=== PATIENT | female | born 1945 | race Caucasian/White ===

== ENCOUNTER 2017-05-14 06:25 | Inpatient (IN) ==
[2017-05-14 06:47] VITALS: BMI 21.6
[2017-05-14] MEDS: LR 1,000 ML IV SCH ×2 (07:30→11:00)
[2017-05-14] MEDS ORDERED: BUPIVACAINE 0.25%/EPI 1:200,000 30ml SDV ONE ×2 (08:05→08:51)
[2017-05-14] MEDS ORDERED: INDOCYANINE GREEN 25mg INJECTION ONE (08:05)
[2017-05-14] MEDS ORDERED: ACETAMINOPHEN IV 1,000 MG/100 ML VIAL IV ONE (08:17)
[2017-05-14] MEDS ORDERED: ONDANSETRON 4 MG/2 ML INJECTION IVP PRN (08:17)
[2017-05-14] MEDS ORDERED: HYDROMORPHONE 2 MG/ML INJECTION IVP PRN (08:17)
[2017-05-14] MEDS ORDERED: DiphenhydrAMINE 50 MG/ML INJECTION IVP PRN (08:17)
--- NOTE | 2017-05-14 08:20 | Anesthesia Preoperative Report ---
Anesthesia Preoperative Record - Date and Time Date: 05/14/17 Preoperative Diagnosis: Robot Assisted Laparoscopic right colectomy C18.0 Proposed Procedure: Robotic assisted lap right colectomy NPO Since Date: 05/14/17 NPO Since Time: 00:00 Allergies/Adverse Reactions: Allergies Allergy/AdvReac Type Severity Reaction Status Date / Time hydrocortisone Allergy Intermediate HIVES Verified 05/02/17 08:56 resorcinol Allergy Intermediate HIVES Verified 05/02/17 08:56 telithromycin Allergy Intermediate NAUSEA Verified 05/02/17 08:56 zinc oxide Allergy Intermediate HIVES Verified 05/02/17 08:56 Sulfa (Sulfonamide Allergy Unknown Verified 05/02/17 08:56 Antibiotics) bismuth subgallate Allergy Intermediate HIVES Uncoded 12/29/16 11:20 hydrocortisone acetate Allergy Intermediate HIVES Uncoded 12/29/16 11:20 - Vital Signs Vital Signs: Temperature 98.0 F 05/14/17 06:45 Pulse Rate 78 05/14/17 06:45 Respiratory Rate 16 05/14/17 06:45 Blood Pressure 102/62 05/14/17 06:45 Pulse Oximetry 99 05/14/17 06:45 Height and Weight: Height 5 ft 4 in Weight 57.2 kg Body Mass Index 21.6 - Medications Inpatient Medications: Current Medications Diphenhydramine HCl (Benadryl) 12.5 - 25 mg IVP O PRN PRN Reason: Nausea &/or vomiting Heparin Sodium (Porcine) (Heparin 5,000unit/Ml) 5,000 unit SUB-Q [employer]ATOR ONE Stop: 05/14/17 14:18 Hydromorphone HCl (Dilaudid) 0.5 - 1 mg IVP Q10M PRN PRN Reason: Pain Ertapenem 1 g/ Sodium Chloride 100 mls @ 200 mls/hr IV PREOP ONE Stop: 05/14/17 14:45 Lactated Ringer's (Lactated Ringers) 1,000 mls @ 30 mls/hr IV .Q24H SULEMAN Last Admin: 05/14/17 07:30 Dose: 30 mls/hr Acetaminophen (Ofirmev) 1,000 mg in 100 mls @ 400 mls/hr IV O ONE Stop: 05/14/17 08:31 Lidocaine HCl (Xylocaine-Mpf 1% Vial) 1 mg ID O ONE Stop: 05/14/17 14:11 Last Admin: 05/14/17 07:31 Dose: Not Given Ondansetron HCl (Zofran) 4 mg IVP O PRN PRN Reason: Nausea &/or vomiting Home Medications: Home Medications Medication Instructions Recorded Confirmed Type Estradiol Patch [Climara Patch] 1 patch TOP Q7D 05/01/17 05/14/17 History HydroCHLOROthiazide [Hydrodiuril] 1 tab PO WB 05/01/17 05/14/17 History LORazepam [Lorazepam] 0.5 tab PO HS PRN 05/01/17 05/14/17 History Pravastatin [Pravachol] 40 mg PO HS 05/01/17 05/14/17 History Atenolol [Tenormin] 1 tab PO PRN 05/02/17 05/14/17 History Cholecalciferol (Vitamin D3) 1 tab PO DAILY 05/10/17 05/14/17 History [Vitamin D3] Is Patient on Beta Vick?: No - Medical History Respiratory: DENIES: Asthma, Bronchitis, Chronic Obstructive Pulmonary Disease (COPD), Dyspnea, Orthopnea, Pulmonary Embolism, Pneumonia, Upper Respiratory Infection, Pulmonary Edema, Sleep Apnea, Tuberculosis, Other Cardiovascular: Reports: Hypertension, Other (mitral valve prolapse. seen by film tests checker. no intervention needed.) Gastrointestional: DENIES: Obstructive Bowel, Hepatitis, Cirrhosis, Nausea or Vomiting Present, Gastroesophageal Reflux Disease, Gastrointestinal Bleeding, Hiatal Hernia, Ulcer , Morbid Obesity, Other Neuro/Musculoskeletal: Denies: HX.MS.OSAR, Back Problems, Cerebrovascular Accident, Depression, Headaches, Loss of Consciousness, Muscle Weakness, Neuromuscular Disorder, Paralysis, Paresthesia, Syncope, Seizures, Other Renal/Endocrine: DENIES: Diabetes Mellitus Type 1, Diabetes Mellitus Type 2, Renal Failure, Dialysis, Thyroid Disease, Weight Loss, Weight Gain, Other Other History: DENIES: Anesthesia Reactions, Now, Blood Transfusions, Chemotherapy , Cancer, Hemophilia, Malignant Hyperthermia, Sickle Cell Disease, Other - Surgical History GI Surgery/Treatments: Reports: Appendectomy, Colonoscopy Surgery/Treatment: REPORT: Other (bladder lift) Musculoskeletal Surgery/Tx: Reports: Other (PLATES & SCREWS R. WRIST/FOREARM) Reproductive Surgery/Treatment: Reports: Hysterectomy, Oophorectomy, Salpingectomy Anesthesia Reactions: None Hx Family Anesthesia Reaction: No History of Motion Sickness: No - Social History Smoking Status: Never smoker Substance Use Type: does not use - Pertinent Findings Laboratory: CBC and BMP 05/14/17 06:40 05/14/17 06:40 BMP 05/14/17 06:40 Sodium 144 Potassium 3.2 L Chloride 103 Carbon Dioxide 28 BUN 14.0 Creatinine 1.0 Glucose 96 Calcium 9.8 Liver Function 05/14/17 Range/Units 06:40 Total Bilirubin 1.10 (0.20-1.30) MG/DL AST 27 (14-36) U/L ALT 29 (9-52) U/L Alkaline Phosphatase 115 (38-126) U/L Albumin 4.2 (3.5-5.0) G/DL EKG Rhythm: Normal Sinus Rhythm - Physical Exam Respiratory Exam: Present: lungs clear, bilateral breath sounds equal Cardiovascular Exam: Present: regular rate and rhythm, no murmur - Airway Assessment Mallampati Score: I TMD: 3 Fingerbreadths Neck Extension: fair Overall Assessment: no airway concerns - ASA ASA Score: 2 - Plan Anesthesia: General Inhalation Gases Peripheral Nerve Block: Other (TAP possible post op) - Discussion Discussion: Discussed risks/options/alternatives of anesthesia and questions answered. Patient consents. Nursing pain assessment noted. Present for Discussion: spouse, family member Attestation Statement: Prior to the delivery of any anesthetic medication, I examined the patient, developed the plan, obtained the patient's consent and discussed the risk and benefits of the procedure with the patient/guardian. - Additional Information Comments: TAP block discussed with pt. consent received. risks/benefits discussed. will discuss with Dr. Edwards Seen by Anesthesia: Yes
[2017-05-14] MEDS ORDERED: KETAMINE 500 MG/10 ML INJECTION ONE (08:35)
[2017-05-14] MEDS ORDERED: FentaNYL 100 MCG/2 ML INJECTION ONE (08:35)
[2017-05-14] MEDS ORDERED: DiphenhydrAMINE 50 MG/ML INJECTION ONE (08:41)
[2017-05-14] MEDS ORDERED: ONDANSETRON 4 MG/2 ML INJECTION ONE (08:41)
[2017-05-14] MEDS ORDERED: LIDOCAINE 2% (100mg/5mL) PF 5ml vl ONE (08:41)
[2017-05-14] MEDS ORDERED: DEXAMETHASONE 4 MG/ML INJECTION ONE (08:41)
[2017-05-14] MEDS ORDERED: NEOSTIGMINE 10 MG/10 ML INJECTION ONE (08:41)
[2017-05-14] MEDS ORDERED: PROPOFOL 20 ML ONE (08:41)
[2017-05-14] MEDS ORDERED: GLYCOPYRROLATE 0.4 MG/2 ML INJECTION ONE (08:41)
[2017-05-14] MEDS ORDERED: EPHEDRINE 50mg/ml INJECTION ONE (09:15)
[2017-05-14] MEDS ORDERED: BUPIVACAINE 0.25%/EPI 1:200,000 30ml SDV INFIL ONE (09:38)
[2017-05-14] MEDS ORDERED: INDOCYANINE GREEN 25mg INJECTION IVP ONE (11:34)
[2017-05-14] MEDS ORDERED: LIDOCAINE 1% (10mg/ml) 2mL INJ PF SDV ID ONE (14:10)
[2017-05-14] MEDS ORDERED: ERTAPENEM 1 G in NS 100 ML IV ONE (14:16)
[2017-05-14] MEDS ORDERED: HEPARIN SUB-Q 5,000 UNITS/0.5 ML INJECTION SQ ONE (14:17)
--- NOTE | 2017-05-14 14:43 | General Surgery Procedure Note ---
Date of Procedure: 05/14/17 Surgeon: [facility] Practitioner: Marty Cardona APRN Postoperative Diagnosis: adenocarcinoma of the cedum Procedure: Robotic assisted right hemicolectomy with primary anastomosis Estimated Blood Loss: See Anesthesia Record.
[2017-05-14] MEDS ORDERED: HYDROMORPHONE PCA 30mg/30ml VIAL IV PRN (14:53)
[2017-05-14] MEDS ORDERED: IBUPROFEN 600 MG TABLET PO PRN (14:53)
[2017-05-14] MEDS: MIDAZOLAM 2mg/2ml INJECTION IVP PRN ×3 (14:57→22:05)
[2017-05-14] MEDS: D5-1/2NS with KCL 20mEq 1,000 ML IV SCH (15:06)
--- NOTE | 2017-05-14 15:20 | XRay Report ---
Indication: tube placement PROCEDURE: XR chest 1V: Encounter: Initial Comparison: CT chest, abdomen and pelvis dated May 03, 2017 Findings: Endotracheal tube in place with the tip projecting 5 cm above the kendra at the level of the thoracic inlet. Extensive subcutaneous emphysema throughout the chest wall and neck bilaterally. No definite pneumothorax seen. Free intraperitoneal air, presumably postoperative. Mild left basilar atelectasis. Heart size and mediastinal contours are grossly normal. Pulmonary vascularity cannot be well evaluated due to the subcutaneous emphysema. Impression: 1. Endotracheal tube tip projects at the level of the thoracic inlet. Consider advancement by 1 to 1.5 cm. 2. Extensive subcutaneous emphysema. .
--- NOTE | 2017-05-14 16:50 | Operative Note ---
DATE OF SERVICE 05/14/2017 SURGEON Gurjit Edwards MD SHOEMAKING CUTTER Marty Cardona APRN PREOPERATIVE DIAGNOSIS Cecal carcinoma. POSTOPERATIVE DIAGNOSIS Cecal carcinoma. PROCEDURE Robotic-assisted laparoscopic right hemicolectomy. Anesthesia General endotracheal. EBL/FLUIDS Please see chart. BRIEF HISTORY/INDICATIONS Mrs. Otero is a 72-year-old female who recently had undergone a colonoscopy and was found to have a carcinoma involving her cecum. She did undergo preoperative imaging that fortunately did not reveal any evidence for metastatic disease. Patient presents today to undergo surgical resection of her newly diagnosed cecal carcinoma. For completeness please refer to notes included in the patient's chart. FINDINGS Upon laparoscopy one could see a small benign-appearing cyst within the midportion of the left lobe of the liver. Otherwise, Merrill's was capsule was smooth without nodularities. Omentum, small bowel, colon, peritoneal surfaces which were visualized were within normal limits. A standard robotic-assisted laparoscopic right hemicolectomy was completed without incident. NARRATIVE OF PROCEDURE After informed consent was obtained the patient was brought to the operative suite and placed on the table in supine fashion. The abdomen was prepped and draped in sterile fashion. Formal time-out was then completed. 0.25% Marcaine with epinephrine was injected just below the left subcostal margin. A 4-5 mm incision was made through the area of analgesia. Veress needle was then introduced through this small incision and into the peritoneal cavity. Pneumoperitoneum was established to a patient pressure of 15 mmHg of carbon dioxide. Next, a 12-mm camera port was then placed about 4 cm caudad and to the left of the umbilicus. Laparoscope was then inserted and one could see the Veress needle as it coursed through the anterior abdominal wall and left upper quadrant. The Veress needle was removed. Next, an additional 8-mm port was placed within the epigastric region, additional 8-mm port was placed in the suprapubic region, additional da Ascencion stapler port was then placed in the left upper quadrant, and an air assist port was placed within the left lower quadrant. Each port site was preinjected with 0.25% Marcaine with epinephrine and placed under direct visualization. Abdominal cavity was explored via the laparoscope. Findings were as noted above. The patient was then placed in Trendelenburg position and the bed was slightly flexed and rotated to the patient's left. Robot was then docked overlying the patient's right shoulder at a 45-degree angle. A Graptor retractor was placed in robotic arm #3 within the epigastric region. Hook cautery was placed within the stapler port within robotic arm #1. Fenestrated bipolar grasper was then placed in robotic arm #2 within the suprapubic port site. The Graptor was then placed on the right colon and retracted out laterally. Mesentery to the right mesocolon was then tented at this juncture in time. The mesentery was incised with the use of electrocautery. The right ileocolic vessels were dissected out. It was known that the patient's vasculature anatomy was somewhat different. Preoperatively the patient had undergone a CT scan and her vena cava was found to be on the left side of the aorta. Right ileocolic vessel appeared somewhat different in the fact that there was a large branch coming off of the right colic that coursed inferiorly and into the blood supply of the small bowel. The mesocolon was continued to be incised cephalad to the right colic vessels up towards the duodenum. Duodenum was identified and gently dissected posteriorly as the mesocolon was being divided and lifted anteriorly. Mesocolon was also divided caudal to the right colic vessels up to and adjacent to the terminal ileum. Retroperitoneal space was entered and the mesocolon was reflected anteriorly. A right ureteral stent had been placed preoperatively. One could see the ureteral stent lighting up the location of the right ureter. Right ureter was preserved in its entirety and kept under direct visualization as the terminal ileum and cecum was being dissected anteriorly away from the iliac vessels. Dissection was then continued up towards the transverse colon to the right of the middle colic vessels. Mesentery to the transverse colon was divided utilizing a vessel sealer. The avascular plane of the omentum was then entered and the omentum was dissected off of the hepatic flexure and proximal transverse colon. Gastrocolic lesion was also divided until the hepatic flexure was completely immobilized. At this time since the vasculature did appear slightly different than normal, I did have Dr. Wiley provide intraoperative "consult." Dr. Wiley agreed that the right colic vessel appeared slightly different in the fact that there was a larger vessel coming off of the right colic and entering into the small bowel. I elected, therefore , to divide the right colic vessel distal to this location. Right colic artery and vein were dissected out circumferentially. A hemoclip was then placed proximally and distally upon the right colic artery and vein. Right colic artery and vein were then divided between the two Hem-o-henry clips. The retroperitoneal space was then continued to be developed from a medial-to- lateral fashion. Retroperitoneal space was divided to just beneath the ascending colon and laterally to the white line of Toldt. The retroperitoneal space was then divided posterior to the hepatic flexure as the hepatic flexure was being dissected anteriorly. At this point in time the mesocolon to the terminal ileum, right colon and proximal transverse colon had been completely divided and the retroperitoneal space had been developed to the white line of Toldt out laterally. A stapler was then placed in robotic arm #1 and placed transversely across the terminal ileum and fired. Reload was then placed across the transverse colon just to the right of middle colic vessels and fired. Next, an intracorporal isoperistaltic anastomosis was performed. Antimesenteric portion of the terminal ileum was aligned along the antimesenteric taeniae coli of the transverse colon. Two 3-0 Vicryl sutures were then placed about 6-7cm apart between the antimesenteric portion of the terminal ileum and obtained a small purchase of the antimesenteric taeniae coli. These sutures were left long and were utilized as stay sutures and retracted anteriorly. Next, an enterotomy and colotomy was performed under direct visualization with scissors just proximal to the stay suture. A LATISHA vascular load was then placed in the stapler and placed into the enterotomy and colotomy aligned along the antimesenteric borders and fired. A small opening that was left from the stapler was then closed in two layers. First layer was closed in a running fashion utilizing a 2-0 V-Loc suture. Multiple 3-0 Vicryl Lembert sutures were then placed overlying the original closure. The anastomosis was complete at this time. Additionally, the patient was given intravenous ICG and the remaining transverse colon and terminal ileum fluoresced quite well to the staple line indicative of adequate blood supply. Next, attention was then directed towards removal of the specimen. Robot was undocked and the patient was "leveled out". A small Pfannenstiel incision was then made about two to three fingerbreadths above the pubic symphysis. A 4-5 cm transverse incision was then made at this location. Dissection was carried down to the anterior rectus sheath. Anterior rectus sheath was opened transversely. The peritoneum was then opened between the rectus muscles. An Juan Alberto wound retractor was then placed through this small Pfannenstiel incision. The transected end of the terminal ileum near the cecum was identified. A Gloria clamp was then placed upon the transected portion of the terminal ileum and the terminal ileum, right colon and hepatic flexure/specimen was easily removed through the wound retractor. Wound retractor was then removed. Peritoneum was closed in a running fashion with #1 PDS. Anterior rectus sheath was then closed in a running fashion with #1 PDS. Skin edges of the Pfannenstiel incision were then imbricated to one another with debbie. Pneumoperitoneum was reestablished. Prior areas of dissection were inspected and found be hemostatic in nature. No evidence for bleeding. Remaining ports were removed under direct visualization. Fascia at the camera port and the stapler port was then closed in a [id number] fashion with 0-Vicryl. All skin incisions were closed with debbie. The patient was somewhat slow to wake from her anesthetic as a result of the length of the procedure. The patient was therefore sent back to the ICU intubated but in stable condition. Additionally, it should be noted that Marty Cardona APRN, was present throughout the entire case and played a pivotal role in providing assistance and exposure during the course of the procedure. ASAD
[2017-05-14] MEDS: ONDANSETRON 4 MG/2 ML INJECTION IVP PRN (18:29)
--- NOTE | 2017-05-14 21:04 | Anesthesia Postoperative Note ---
- Date and Time Date: 05/14/17 Time: 21:03 - Status Patient Participated in Evaluation: Patient Intubated Vital Signs: Temperature 97.7 F 05/14/17 16:00 Pulse Rate 78 05/14/17 20:45 Respiratory Rate 11 05/14/17 20:45 Blood Pressure 153/78 H 05/14/17 17:40 Pulse Oximetry 100 05/14/17 20:45 Respiratory Function: Intubated Cardiovascular Function: Regular Pulse EKG Rhythm: Normal Sinus Rhythm Mental Status: Alert and Oriented Pain Intensity: 0 Hydration: IV Infusing Complications During Recover: None Apparent Post Anesthesia Care Notes: Pt to remain ventilated overnight. - Follow-Up Instructions Instructions: Per Surgeon
[2017-05-15] MEDS: SALINE FLUSH 10ml SYRINGE IV PRN ×2 (00:36→04:41)
[2017-05-15] MEDS: MIDAZOLAM 2mg/2ml INJECTION IVP PRN ×2 (00:36→04:40)
[2017-05-15] MEDS: D5-1/2NS with KCL 20mEq 1,000 ML IV SCH ×3 (00:37→17:10)
[2017-05-15] MEDS ORDERED: EPINEPHRINE AEROSOL PRN (07:19)
[2017-05-15] MEDS ORDERED: ALBUTEROL/IPRATROPIUM 2.5mg-0.5mg/3ml NEB AEROSOL PRN (07:20)
[2017-05-15] MEDS ORDERED: LORazepam 1 MG TABLET PO PRN (08:06)
--- NOTE | 2017-05-15 08:13 | General Surgery Progress Note ---
Subjective Patient reports: feels better (but still "puffy" face. She has been extubated within the last hour, able to now carry on normal conversation and ask questions. Ady flatus, nausea, chest pain. Throat is a little sore. She has been up to the side of the bed to stand this morning. Anticipate short distance of ambulation and chair later today.) - Vital Signs Last Vital Signs Temp 97.4 F 05/15/17 05:00 Pulse 68 05/15/17 05:20 Resp 16 05/15/17 07:28 BP 90/51 05/15/17 05:00 Pulse Ox 100 05/15/17 07:28 - Laboratory Result Diagrams: 05/15/17 06:13 05/15/17 06:13 - Abnormal Exam Eyes: other (post op edema has decreased from yesterday, she now can open her eyes with a little slit, but not wide open.) Respiratory: other (crackkles bilateral, more on right throughout.) Abdominal: hypoactive bowel sounds - Normal Exam General: no acute distress Cardiovascular: regular rhythm, regular rate Abdominal: appropriately tender, incision(s) (Pfannenstiel incision dressings have been changed due to bloody drainage yesterday. There is some dried blood on dressing now. Other bandaids dry and intact) Assessment and Plan (1) Adenocarcinoma of cecum Current Visit: Yes Status: Resolved (2) Mitral valvular prolapse Current Visit: Yes Status: Chronic (3) Anxiety Current Visit: Yes Status: Chronic Plan: POD #1 Post Robotic right hemicolectomy She remained intubated post op due to poor respiratory drive and high risk of tracheal edema, now extubated and breathing without difficulty , sat 97% on O2 at 2 Lt. Urine output is good. Using COAT CUTTER Dilaudid for pain. Continue sips and chips for now, anticipate advancing to clear liquids soon. Will keep in CCU through the day, may consider transfer to surgical later today or tomorrow. Hospital Course Summary Disclaimer: The visit summary below is not to be considered part of the above Progress Note. Hospital Course: 05/14/2017 Robotic assisted right hemicolectomy. Transferred to CCU intubated post op due to poor respiratory drive and high risk tracheal edema. SBP dropped to 70's and 80's after Versed while intubated, but improved with just repositioning to supine and letting the Versed wear off. 05/15/17 08:26 POD #1 Post Robotic right hemicolectomy She remained intubated post op due to poor respiratory drive and high risk of tracheal edema, now extubated and breathing without difficulty , sat 97% on O2 at 2 Lt. Urine output is good. Using COAT CUTTER Dilaudid for pain. Continue sips and chips for now, anticipate advancing to clear liquids soon. Will keep in CCU through the day, may consider transfer to surgical later today or tomorrow. Sepsis Assessment - Evaluation Sepsis screening result: No Definite Risk
[2017-05-15] MEDS ORDERED: LORazepam 0.5 MG TABLET PO PRN (08:15)
--- NOTE | 2017-05-15 08:23 | XRay Report ---
Indication: intubated PROCEDURE: XR chest 1V: Encounter: Initial Comparison: May 14, 2017 Findings: Endotracheal tube in place with the tip projecting 3.1 cm above the kendra. Extensive subcutaneous emphysema is again noted throughout the chest, abdominal wall and neck. No obvious pneumothorax or focal consolidative pneumonia. No significant pleural effusion. Heart size and mediastinal contours are stable. Pulmonary vascularity is obscured. Impression: Overall stable appearance of the chest. .
[2017-05-15] MEDS: PANTOPRAZOLE 40 MG INJECTION IVP SCH (09:46)
[2017-05-15] MEDS: ENOXAPARIN 40 MG/0.4 ML INJECTION SQ SCH (09:48)
--- NOTE | 2017-05-15 12:21 | Anesthesia Postoperative Note ---
- Date and Time Date: 05/15/17 Time: 12:21 - Status Patient Participated in Evaluation: Patient Participated in Person Vital Signs: Temperature 98.7 F 05/15/17 09:00 Pulse Rate 75 05/15/17 11:00 Respiratory Rate 21 05/15/17 11:00 Blood Pressure 93/52 05/15/17 11:00 Pulse Oximetry 100 05/15/17 11:00 Respiratory Function: Airway Patent Cardiovascular Function: Regular Pulse EKG Rhythm: Normal Sinus Rhythm Mental Status: Alert and Oriented Hydration: Taking PO Fluids Complications During Recover: None Apparent - Follow-Up Instructions Instructions: Per Surgeon
--- NOTE | 2017-05-15 15:38 | Progress Note ---
DATE OF SERVICE 05/15/2017 FINDINGS Dominga was seen earlier this morning on rounds. The patient was without complaints today. States she does not remember being on the ventilator last evening. The patient denied much in the way of abdominal discomfort. States that she was "hungry and wanted a pizza." EXAM VITAL SIGNS: Afebrile, normotensive/slightly hypotensive. CHEST: Auscultation of chest revealed clear breath sounds. The patient did have a considerable amount of subcutaneous air that is still present within the upper chest and neck that was noted upon palpation. CARDIOVASCULAR: Regular rate and rhythm. ABDOMEN: Soft, nontender. LABORATORY/RADIOGRAPHIC EVALUATION The patient had a CBC today and her white count was elevated at 14.4. This most likely is a result of stress from surgery and not infectious in nature. Hemoglobin is slightly down at 9.3. BMP obtained and found to be essentially within normal limits. Potassium slightly low at 3.4. Blood gas was obtained this morning and also reviewed as well as her chest x- ray. ASSESSMENT 72-year-old female status post robotic-assisted laparoscopic right hemicolectomy. Patient doing well this morning. PLAN Earlier this morning we did elect to extubate the patient. Will begin the patient on clear liquids today. Otherwise, will continue with current care. ASAD
[2017-05-15] MEDS: NS 500 ML IV SCH ×2 (18:26→21:24)
--- NOTE | 2017-05-15 18:39 | Consult Note ---
<Yanira Sharp V - Last Filed: 05/15/17 18:36> Consult Information - Data of Consult Patient: new to practice Consult date: 05/15/17 Requesting Physician: Gurjit Edwards MD Primary Care Provider: Adele Voss MD Family Provider: Adele Voss MD - Consult Narrative Reason for consult: Tachycardia, hypotension, History of present illness: Dominga is a pleasant 72-year-old female who has been under the primary care of Dr. Adele Voss. Patient was seen routinely and found to have anemia. Further workup including color guard. Stool sample was positive. Rising concern for adenocarcinoma. On , patient underwent a colonoscopy under the care of Dr. Xander Lorenzana. 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 Patient was admitted on 05/14/17 and the care of Dr. Gurjit Edwards for planned robotic upper scopic right hemicolectomy. Procedure was tolerated well. Today patient has had persistent mild tachycardia as well as ongoing hypotension. Her morning hemoglobin was 9.3, this was repeated at 1745 today, which is stable at 9.2. She has had significant subcutaneous emphysema generalized since surgery. Hospital services were consulted this evening for medical evaluation and recommendations giving postoperative findings, as well as existing comorbidities. Dominga is seen this evening for initial consultation. She is alert, oriented and pleasant. She does complain of having generalized swelling to the face and neck. She reports that overall she feels that that her postoperative abdominal pain is well-controlled on the SOFTWARE SUPPORT REPRESENTATIVE. She does verbalize feeling mildly anxious, however, does have underlying anxiety. She denies feeling short of breath or having chest pain, however, she does note feeling some mild palpitations with position changes. 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 Cochleovestibular and Mnire's- chronic Dyslipidemia Anxiety Chronic rhinitis Surgical History: Robotic laparoscopic right Hemicolectomy-05/14/17 (Dr. Edwards ). Right lumpectomy-1998. Total abdominal hysterectomy with BSO. Forearm/ wrist surgery-2002. Colonoscopy-2008, 04/2017. Cystocele and rectocele-2008 Family History: Father-congestive heart failure, dementia. Mother-dementia - Social History Smoking status: Never smoker Substance use type: does not use Alcohol intake frequency: does not drink Current occupational status: retired Current residence: Apartment/Private Home Social history: Primary care provider, Dr. Voss Review of Systems Comprehensive ROS: completed and no additional positive findings except those as stated - EENMT EENMT Comments: Generalized facial edema, swelling - Gastrointestinal Gastrointestinal: Present: as per HPI Medications Home Medications Medication Instructions Recorded Confirmed Type Estradiol Patch [Climara Patch] 1 patch TOP Q7D 05/01/17 05/14/17 History HydroCHLOROthiazide [Hydrodiuril] 1 tab PO WB 05/01/17 05/14/17 History LORazepam [Lorazepam] 0.5 tab PO HS PRN 05/01/17 05/14/17 History Pravastatin [Pravachol] 40 mg PO HS 05/01/17 05/14/17 History Atenolol [Tenormin] 1 tab PO PRN 05/02/17 05/14/17 History Cholecalciferol (Vitamin D3) 1 tab PO DAILY 05/10/17 05/14/17 History [Vitamin D3] Allergies Allergy/AdvReac Type Severity Reaction Status Date / Time hydrocortisone Allergy Intermediate HIVES Verified 05/02/17 08:56 resorcinol Allergy Intermediate HIVES Verified 05/02/17 08:56 telithromycin Allergy Intermediate NAUSEA Verified 05/02/17 08:56 zinc oxide Allergy Intermediate HIVES Verified 05/02/17 08:56 Sulfa (Sulfonamide Allergy Unknown Verified 05/02/17 08:56 Antibiotics) bismuth subgallate Allergy Intermediate HIVES Uncoded 12/29/16 11:20 hydrocortisone acetate Allergy Intermediate HIVES Uncoded 12/29/16 11:20 Exam Vital Signs: Temperature 97.7 F 05/15/17 16:00 Pulse Rate 98 05/15/17 16:00 Respiratory Rate 24 05/15/17 18:00 Blood Pressure 85/48 05/15/17 16:00 Pulse Oximetry 98 05/15/17 16:17 Telemetry Rhythm: Sinus Tachycardia Height/Weight/BMI: Height 1.63 m Weight 60.3 kg Body Mass Index 21.6 - Constitutional Present: no acute distress, well nourished, well developed - Routine HEENT Exam Eye: Present: EOMI, periorbital swelling ENT: Present: mucous membranes moist, dentition normal Comments: Subcutaneous emphysema is present to generalize faced and bilateral neck. - Routine Respiratory Exam Present: CTA bilaterally. Absent: wheezes Comments: crackles are present on auscultation, however, suspect this is secondary to the subcutaneous emphysema. Breath sounds are clear. - Routine Cardiovascular Exam Present: RRR. Absent: murmur - Routine Abdominal Exam Present: soft, non distended, surgical scars. Absent: normoactive bowel sounds (hypoactive), tenderness Comments: Abdominal incision is intact without evidence of acute bleeding or drainage. - Routine Extremities Exam Present: edema Comments: Subcutaneous emphysema to bilateral upper extremities - Routine Skin Exam Present: intact, dry, warm - Routine Neurological Exam Present: alert, oriented X3, CN II-XII intact - Routine Psychiatric Exam Present: normal affect, normal thought process Results - Labs CBC & Chem 7: 05/15/17 17:44 05/15/17 06:13 - ABG Interpretation ABG results: 05/14/17 05/15/17 15:05 06:00 ABG pH 7.480 H 7.540 H ABG pCO2 30 L 26 L ABG pO2 192 H 130 H ABG HCO3 22 22 ABG Total CO2 23.2 23.0 ABG O2 Saturation 100.0 H 99.0 H ABG Base Excess -0.4 0.8 Assessment and Plan (1) Adenocarcinoma of cecum Current visit: Yes Status: Resolved (2) Subcutaneous emphysema after procedure Current visit: Yes Status: Acute Resuscitation Status: Full Code Assessment and Plan: Impression Status post robotic laparoscopic right hemicolectomy Cecal carcinoma Postprocedure subcutaneous emphysema Tachycardia Hypotension with history of hypertension Dyslipidemia Mitral valve prolapse Anxiety Plan Appreciate medical consultation with Hospital services, Dr. Pham. Patient's primary care provider is Dr. Adele Voss with [facility]. Will give a 500 ML bolus of normal saline over 1 hour for gentle hydration. Will then continue on D5 1/2 NS with 20 of KCl at 125 ML per hour Continue to reevaluate tachycardia and hypotension. In reviewing old records, it does appear that patient has had intermittent tachycardia and has used atenolol 25 milligrams as needed in the past. Reviewed CBC at 1744 - Hgb was stable at 9.2. Will recheck again at 2200 and monitor for any evidence of bleeding. Continue to monitor subcutaneous emphysema as this will likely continue to improve over time. Continue to encourage patient to utilize SOFTWARE SUPPORT REPRESENTATIVE for pain control. She does appear to be somewhat nervous about overdoing pain medications. Ativan as needed for anxiety Lovenox subcutaneous daily for DVT prophylaxis All surgical and postoperative orders continue as per Dr. Edwards Will discuss further orders and plan of care with attending, Dr. Pham. The hospitalist services, appreciate medical consultation and will continue to follow patient during her stay at [facility]. At time of discharge her medical care will return to her primary care provider [facility], Dr. Adele Voss Hospital Course Summary Disclaimer: The visit summary below is not to be considered part of the above Progress Note. Hospital Course: 05/14/2017 Robotic assisted right hemicolectomy. Transferred to CCU intubated post op due to poor respiratory drive and high risk tracheal edema. SBP dropped to 70's and 80's after Versed while intubated, but improved with just repositioning to supine and letting the Versed wear off. 05/15/17 08:26 POD #1 Post Robotic right hemicolectomy She remained intubated post op due to poor respiratory drive and high risk of tracheal edema, now extubated and breathing without difficulty , sat 97% on O2 at 2 Lt. Urine output is good. Using SOFTWARE SUPPORT REPRESENTATIVE Dilaudid for pain. Continue sips and chips for now, anticipate advancing to clear liquids soon. Will keep in CCU through the day, may consider transfer to surgical later today or tomorrow. Plan- 05/15- hospitalist consultation Appreciate medical consultation with Hospital services, Dr. Pham. Patient's primary care provider is Dr. Adele Voss with [facility]. Will give a 500 ML bolus of normal saline over 1 hour for gentle hydration. Will then continue on D5 1/2 NS with 20 of KCl at 125 ML per hour Continue to reevaluate tachycardia and hypotension. In reviewing old records, it does appear that patient has had intermittent tachycardia and has used atenolol 25 milligrams as needed in the past. Reviewed CBC at 1744 - Hgb was stable at 9.2. Will recheck again at 2200 and monitor for any evidence of bleeding. Continue to monitor subcutaneous emphysema as this will likely continue to improve over time. Continue to encourage patient to utilize SOFTWARE SUPPORT REPRESENTATIVE for pain control. She does appear to be somewhat nervous about overdoing pain medications. Ativan as needed for anxiety Lovenox subcutaneous daily for DVT prophylaxis All surgical and postoperative orders continue as per Dr. Edwards Will discuss further orders and plan of care with attending, Dr. Pham. The hospitalist services, appreciate medical consultation and will continue to follow patient during her stay at [facility]. At time of discharge her medical care will return to her primary care provider [facility], Dr. Adele Voss Sepsis Assessment - Evaluation Sepsis screening result: No Definite Risk <Carley Pham - Last Filed: 05/15/17 19:09> Consult Information - Data of Consult Requesting Physician: Gurjit Edwards MD Primary Care Provider: Adele Voss MD Family Provider: Adele Voss MD [facility] Patient Stated Medical History Cerebrovascular Accident No Paralysis No Seizures No Syncope No Cataracts Yes Hearing Loss Yes: lt ear Cardiac Arrhythmia Yes: rapid at times Hypertension Yes Valvular Heart Disease Yes: MVP Other Cardiology Yes: mitral valve prolapse. seen by english division chair . no intervention needed. Asthma No Bronchitis No Chronic Obstructive Pulmonary No Disease (COPD) Pneumonia No Pulmonary Edema No Pulmonary Embolism No Sleep Apnea No Tuberculosis No Other Respiratory No Diabetes Mellitus Type 1 No Diabetes Mellitus Type 2 No Cirrhosis No Gastroesophageal Reflux No Disease Gastrointestinal Bleeding No Hepatitis No Hiatal Hernia No Obstructive Bowel No Ulcer No Other GI No Anemia Yes Osteoarthritis No Other Musculoskeletal No Anesthesia Reactions No Blood Transfusions No Chemotherapy No Malignant Hyperthermia No Other No Depression No Substance Use Disorder occasional Endometriosis Yes Now No Exam Vital Signs: Temperature 97.7 F 05/15/17 16:00 Pulse Rate 98 05/15/17 16:00 Respiratory Rate 24 05/15/17 18:00 Blood Pressure 85/48 05/15/17 16:00 Pulse Oximetry 98 05/15/17 16:17 Height/Weight/BMI: Height 5 ft 4 in Weight 132 lb 15.02 oz Body Mass Index 21.6 Results - Labs CBC & Chem 7: 05/15/17 17:44 05/15/17 06:13 - ABG Interpretation ABG results: 05/14/17 05/15/17 15:05 06:00 ABG pH 7.480 H 7.540 H ABG pCO2 30 L 26 L ABG pO2 192 H 130 H ABG HCO3 22 22 ABG Total CO2 23.2 23.0 ABG O2 Saturation 100.0 H 99.0 H ABG Base Excess -0.4 0.8 Assessment and Plan (1) Adenocarcinoma of cecum Current visit: Yes Status: Resolved (2) Subcutaneous emphysema after procedure Current visit: Yes Status: Acute Assessment and Plan: I have independently evaluated and examined this patient. I reviewed the chart, the patient's history, and the COOK APPRENTICE PASTRY/PA's documented findings as above. We discussed and formulated the assessment and plan as above with additions as below. In general, the patient is alert and oriented 3, cooperative with exam, and in no respiratory distress. HEENT: Head is atraumatic, normocephalic, no conjunctival petechiae, no oral thrush, mucous membranes are moist and pink. Lungs: Clear to auscultation without wheezes, crackles or rhonchi but difficult to assess with her subcutaneous emphysema CV: Regular rate and rhythm without murmur Abdomen: Soft, nontender, bowel sounds are rare, there is no guarding no rebound. Lower abdomen incision with debbie in place minimal bruising noted no drainage Extremities: No clubbing, no cyanosis, no edema. Skin: Warm and dry no sign of rash, obvious subcutaneous emphysema from her eyelids extending to her knees. Neuro: Patient is alert Agree with plans as outlined above. This was discussed with the patient, patient 's nurse and Dr. Edwards. Hospital Course Summary Disclaimer: The visit summary below is not to be considered part of the above Progress Note.
--- NOTE | 2017-05-15 20:56 | Progress Note ---
DATE OF SERVICE 05/15/2017 FINDINGS Mrs. Otero was seen on evening rounds. Nurse had contacted me stating the patient was experiencing some increasing abdominal pain, had noted a component of some tachycardia. Upon questioning the patient she states that she has been having some element of abdominal discomfort. This is mostly noted when she is being moved in the bed. She was lying in bed and did not appear to be in acute distress. EXAM VITAL SIGNS: Last recorded vitals include temperature 97.7, pulse 98, blood pressure 85/48. Upon entering the room I did see that she was slightly tachycardic with a pulse of around 105. CHEST: Clear to auscultation. Patient still has a fair amount of subcutaneous air present. ABDOMEN: Soft, only minimal incisional tenderness. No evidence for guarding or rebound. ASSESSMENT 72-year-old female status post robotic-assisted laparoscopic right hemicolectomy , overall patient doing fairly well although somewhat concerned about increasing tachycardia and slight hypotension. PLAN Will go ahead and check CBC to make sure that the patient's hemoglobin is not continuing to drift downward. The patient does not have a surgical abdomen at this time. Upon further examining the patient, she began to inform me that she has noted some discomfort within her chest that extends up into her neck. Given this report of some chest discomfort extending into her neck in conjunction with her tachycardia, will go ahead and have hospitalist system see the patient from a medical standpoint. Will await her CBC results and proceed accordingly. ASAD
[2017-05-16] MEDS: D5-1/2NS with KCL 20mEq 1,000 ML IV SCH ×3 (02:13→18:39)
--- NOTE | 2017-05-16 07:48 | General Surgery Progress Note ---
Subjective Patient reports: feels better (subQ air has decreased a lot since yesterday), pain is less (uses ADVANCE SCOUT rarely), tolerating liquids well (denies nausea today, states she had some nausea yesterday), no flatus, no bowel movement, other ( denies chest pain/palpiations upon my visit this morning.) - Vital Signs Last Vital Signs Temp 98.8 F 05/15/17 21:00 Pulse 101 H 05/16/17 06:00 Resp 23 05/16/17 06:00 BP 109/57 05/16/17 06:00 Pulse Ox 94 05/16/17 06:00 - Laboratory Result Diagrams: 05/16/17 05:56 05/16/17 05:56 Laboratory Tests 05/15/17 05/15/17 05/15/17 06:13 17:44 21:53 Hgb 9.3 L D 9.2 L 8.9 L 05/16/17 05:56 Hgb 8.3 L - Radiology 09/ CXR Findings: Endotracheal tube in place with the tip projecting 3.1 cm above the kendra. Extensive subcutaneous emphysema is again noted throughout the chest, abdominal wall and neck. No obvious pneumothorax or focal consolidative pneumonia. No significant pleural effusion. Heart size and mediastinal contours are stable. Pulmonary vascularity is obscured. Impression: Overall stable appearance of the chest. - Abnormal Exam General: other (subQ emphysema of face, neck and chest is much improved from yesterday. She is now able to open her eyes and is generally looking for like herself.) Respiratory: other (crackles bilateral base, worse on the right but both sides much improved from yesterday.) Abdominal: hypoactive bowel sounds - Normal Exam General: no acute distress Cardiovascular: regular rhythm, regular rate Abdominal: soft, appropriately tender (along incisions), no guarding, incision(s ) (dressings dry) Male: other (urine clear yellow, adequate output) Assessment and Plan (1) Adenocarcinoma of cecum Current Visit: Yes Status: Resolved (2) Mitral valvular prolapse Current Visit: Yes Status: Chronic (3) Anxiety Current Visit: Yes Status: Chronic (4) Tachycardia Current Visit: Yes Status: Acute (5) Oliguria Current Visit: Yes Status: Acute (6) Intermittent palpitations Current Visit: Yes Status: Acute Plan: POD #2 Slightly tachy, SBP 90's-100's, palpitations, Hospitalist consult put forth yesterday. HGB stable but did dip to 8.3 from 9.2 yesterday, although she did get another bolus NS 500ml. Urine output adequate, consider DC ochoa No flatus or BM, will try to coax some bowel activity with another Duloclax PO From surgical standpoint she could go to surgical floor, will leave transfer decision to hospitalist who are monitoring cardiac status. Hospital Course Summary Disclaimer: The visit summary below is not to be considered part of the above Progress Note. Hospital Course: 05/14/2017 Robotic assisted right hemicolectomy. Transferred to CCU intubated post op due to poor respiratory drive and high risk tracheal edema. SBP dropped to 70's and 80's after Versed while intubated, but improved with just repositioning to supine and letting the Versed wear off. 05/15/17 08:26 POD #1 Post Robotic right hemicolectomy She remained intubated post op due to poor respiratory drive and high risk of tracheal edema, now extubated and breathing without difficulty , sat 97% on O2 at 2 Lt. Urine output is good. Using ADVANCE SCOUT Dilaudid for pain. Continue sips and chips for now, anticipate advancing to clear liquids soon. Will keep in CCU through the day, may consider transfer to surgical later today or tomorrow. Plan- 05/15- hospitalist consultation Appreciate medical consultation with Hospital services, Dr. Pham. Patient's primary care provider is Dr. Adele Voss with [facility]. Will give a 500 ML bolus of normal saline over 1 hour for gentle hydration. Will then continue on D5 1/2 NS with 20 of KCl at 125 ML per hour Continue to reevaluate tachycardia and hypotension. In reviewing old records, it does appear that patient has had intermittent tachycardia and has used atenolol 25 milligrams as needed in the past. Reviewed CBC at 1744 - Hgb was stable at 9.2. Will recheck again at 2200 and monitor for any evidence of bleeding. Continue to monitor subcutaneous emphysema as this will likely continue to improve over time. Continue to encourage patient to utilize ADVANCE SCOUT for pain control. She does appear to be somewhat nervous about overdoing pain medications. Ativan as needed for anxiety Lovenox subcutaneous daily for DVT prophylaxis All surgical and postoperative orders continue as per Dr. Edwards 05/16/17 11:40 POD #2 Slightly tachy, SBP 90's-100's, palpitations, Hospitalist consult put forth yesterday. HGB stable but did dip to 8.3 from 9.2 yesterday, although she did get another bolus NS 500ml. Urine output adequate, consider DC ochoa No flatus or BM, will try to coax some bowel activity with another Duloclax PO From surgical standpoint she could go to surgical floor, will leave transfer decision to hospitalist who are monitoring cardiac status. Sepsis Assessment - Evaluation Sepsis screening result: No Definite Risk
[2017-05-16] MEDS: PANTOPRAZOLE 40 MG INJECTION IVP SCH (08:11)
[2017-05-16] MEDS: ENOXAPARIN 40 MG/0.4 ML INJECTION SQ SCH (08:11)
[2017-05-16] MEDS ORDERED: LORazepam 1 MG TABLET PO PRN (10:18)
[2017-05-16] MEDS ORDERED: Bisacodyl EC TAB 5 MG TABLET PO ONE (11:40)
--- NOTE | 2017-05-16 12:00 | Progress Note ---
DATE 05/16/2017 FINDINGS Mrs. Otero this morning was sitting upright in the chair. Physically she appeared improved. Patient states that she still has a component of some discomfort involving her right scapular/chest region. This is slowly improving. Still has some mild incisional discomfort. OBJECTIVE VITALS: Afebrile. Normotensive. Last recorded vitals include temperature 98.8 , pulse 95, blood pressure 109/57, SAO2 94% on 1 liter per nasal cannula. CHEST: Clear to auscultation. Patient still has considerable amount of subcutaneous emphysema/air. HEART: Regular rate and rhythm. Normal S1, S2, without gallops, murmurs or clicks. ABDOMEN: Soft with only minimal incisional tenderness. No evidence for guarding or rebound. LABORATORY/RADIOGRAPHIC EVALUATION The patient had a CBC today and her white count is on a downward trend at 11.5. Hemoglobin has drifted down slightly to 8.3. BMP obtained and found to be without marked abnormalities. ASSESSMENT 72-year-old female status post robotic assisted laparoscopic right hemicolectomy , patient with ongoing clinical improvements. PLAN Will go ahead and advance and advance her diet to full liquids. Will continue otherwise with current care. The patient fortunately does appear to be clinically improving at this time. Will continue to follow closely. ASDA
--- NOTE | 2017-05-16 15:59 | Progress Note ---
<Danisha Lieberman - Last Filed: 05/16/17 15:54> Subjective: Patient is seen sitting up in her chair in the room. She has family present. She states she is feeling some better today. She reports feeling somewhat anxious after she takes her pain medicine. She does not complain of significant drowsiness or shortness of breath. She has not yet had a bowel movement. Her subcutaneous emphysema has improved compared to yesterday. She reports she was able to eat her breakfast without any problem. She complains of some shoulder pain, it sounds mostly muscular. The nurses report she seems to be having some anxiety and request when necessary order for Ativan. Objective Vital signs: Temperature 98.8 F 05/15/17 21:00 Pulse Rate 92 05/16/17 15:00 Respiratory Rate 15 05/16/17 15:00 Blood Pressure 94/55 05/16/17 15:00 Pulse Oximetry 98 05/16/17 15:00 Height/Weight/BMI: Height 1.63 m Weight 62.6 kg Body Mass Index 21.6 - Constitutional Present: no acute distress, well nourished, well developed - Routine HEENT Exam Head: Present: normocephalic, atraumatic ENT: Present: mucous membranes moist - Routine Respiratory Exam Present: crackles (bilateral bases). Absent: wheezes - Routine Cardiovascular Exam Present: RRR, S1, S2. Absent: murmur - Routine Abdominal Exam Present: soft, tenderness (in area of incisions), non distended. Absent: normoactive bowel sounds (hypoactive bowel sounds) - Routine Extremities Exam Present: no edema, normal capillary refill - Routine Skin Exam Present: dry, warm Comments: Subcutaneous emphysema most notable in the chest and neck. It does extend all the way down to her ankles. - Routine Neurological Exam Present: alert, oriented X3 - Routine Lymphatic Exam Lymphatic: Absent: adenopathy - Routine Psychiatric Exam Present: normal affect, normal thought process, depressed Results - Labs CBC & Chem 7: 05/16/17 05:56 05/16/17 05:56 - ABG Interpretation ABG results: 05/14/17 05/15/17 15:05 06:00 ABG pH 7.480 H 7.540 H ABG pCO2 30 L 26 L ABG pO2 192 H 130 H ABG HCO3 22 22 ABG Total CO2 23.2 23.0 ABG O2 Saturation 100.0 H 99.0 H ABG Base Excess -0.4 0.8 Assessment and Plan (1) Adenocarcinoma of cecum Current visit: Yes Status: Resolved (2) Subcutaneous emphysema after procedure Current visit: Yes Status: Acute Assessment and Plan: Status post robotic laparoscopic right hemicolectomy Cecal carcinoma Postprocedure subcutaneous emphysema Tachycardia Hypotension with history of hypertension Dyslipidemia Mitral valve prolapse Anxiety Plan Verbal order given for PRN Ativan Subcutaneous emphysema should continue to improve Labs and vitals signs are stable. Blood pressures are still running a bit low but she is asymptomatic. Continue bowel motivation Consider transfer to surgical floor. Sepsis Assessment - Evaluation Sepsis screening result: No Definite Risk Hospital Course Summary Disclaimer: The visit summary below is not to be considered part of the above Progress Note. Hospital Course: 05/14/2017 Robotic assisted right hemicolectomy. Transferred to CCU intubated post op due to poor respiratory drive and high risk tracheal edema. SBP dropped to 70's and 80's after Versed while intubated, but improved with just repositioning to supine and letting the Versed wear off. 05/15/17 08:26 POD #1 Post Robotic right hemicolectomy She remained intubated post op due to poor respiratory drive and high risk of tracheal edema, now extubated and breathing without difficulty , sat 97% on O2 at 2 Lt. Urine output is good. Using CHUCKING AND SAWING MACHINE OPERATOR Dilaudid for pain. Continue sips and chips for now, anticipate advancing to clear liquids soon. Will keep in CCU through the day, may consider transfer to surgical later today or tomorrow. Plan- 05/15- hospitalist consultation Appreciate medical consultation with Hospital services, Dr. Pham. Patient's primary care provider is Dr. Adele Voss with [facility]. Will give a 500 ML bolus of normal saline over 1 hour for gentle hydration. Will then continue on D5 1/2 NS with 20 of KCl at 125 ML per hour Continue to reevaluate tachycardia and hypotension. In reviewing old records, it does appear that patient has had intermittent tachycardia and has used atenolol 25 milligrams as needed in the past. Reviewed CBC at 1744 - Hgb was stable at 9.2. Will recheck again at 2200 and monitor for any evidence of bleeding. Continue to monitor subcutaneous emphysema as this will likely continue to improve over time. Continue to encourage patient to utilize CHUCKING AND SAWING MACHINE OPERATOR for pain control. She does appear to be somewhat nervous about overdoing pain medications. Ativan as needed for anxiety Lovenox subcutaneous daily for DVT prophylaxis All surgical and postoperative orders continue as per Dr. Edwards 05/16/17 11:40 POD #2 Surgery note Slightly tachy, SBP 90's-100's, palpitations, Hospitalist consult put forth yesterday. HGB stable but did dip to 8.3 from 9.2 yesterday, although she did get another bolus NS 500ml. Urine output adequate, consider DC ochoa No flatus or BM, will try to coax some bowel activity with another Duloclax PO From surgical standpoint she could go to surgical floor, will leave transfer decision to hospitalist who are monitoring cardiac status. Hospitalist note Verbal order given for PRN Ativan Subcutaneous emphysema should continue to improve Labs and vitals signs are stable. Blood pressures are still running a bit low but she is asymptomatic. Continue bowel motivation Consider transfer to surgical floor. <Carley Pham - Last Filed: 05/16/17 16:48> Objective Vital signs: Temperature 98.8 F 05/15/17 21:00 Pulse Rate 92 05/16/17 15:00 Respiratory Rate 15 05/16/17 15:00 Blood Pressure 94/55 05/16/17 15:00 Pulse Oximetry 98 05/16/17 15:00 Height/Weight/BMI: Height 5 ft 4 in Weight 138 lb 0.15 oz Body Mass Index 21.6 Results - Labs CBC & Chem 7: 05/16/17 05:56 05/16/17 05:56 - ABG Interpretation ABG results: 05/14/17 05/15/17 15:05 06:00 ABG pH 7.480 H 7.540 H ABG pCO2 30 L 26 L ABG pO2 192 H 130 H ABG HCO3 22 22 ABG Total CO2 23.2 23.0 ABG O2 Saturation 100.0 H 99.0 H ABG Base Excess -0.4 0.8 Assessment and Plan (1) Adenocarcinoma of cecum Current visit: Yes Status: Resolved (2) Subcutaneous emphysema after procedure Current visit: Yes Status: Acute Assessment and Plan: I have independently evaluated and examined this patient. I reviewed the chart, the patient's history, and the SUPERVISOR ELECTRONICS ASSEMBLY/PA's documented findings as above. We discussed and formulated the assessment and plan as above with additions as below. The patient was seen at 1400. She is doing better today she reports she feels like she is improving. She was up in a chair for prolonged period of time earlier today. She has not had a bowel movement yet. In general, the patient is alert and oriented 3, cooperative with exam, and in no respiratory distress. HEENT: Head is atraumatic, normocephalic, no conjunctival petechiae, no oral thrush, mucous membranes are moist and pink. Lungs: Clear to auscultation without wheezes, crackles or rhonchi CV: Regular rate and rhythm without murmur Abdomen: Soft, nontender, bowel sounds rare, there is no guarding no rebound, small Pfannenstiel incision with debbie in place no drainage noted Extremities: No clubbing, no cyanosis, no edema. Skin: Warm and dry no sign of rash, diffuse subcutaneous emphysema with increased swelling of her eyes compared to yesterday but overall the rest is improved. Neuro: Patient is alert Discussed patient's care with nursing and with Dr. Edwards. She is doing well today. Could transfer to the floor at the surgeon's discretion. Hospital Course Summary Disclaimer: The visit summary below is not to be considered part of the above Progress Note. Hospital Course: 05/16/17 16:44 Status post robotic laparoscopic right hemicolectomy Cecal carcinoma Postprocedure subcutaneous emphysema Tachycardia Hypotension with history of hypertension Dyslipidemia Mitral valve prolapse Anxiety Plan Verbal order given for PRN Ativan Subcutaneous emphysema should continue to improve Labs and vitals signs are stable. Blood pressures are still running a bit low but she is asymptomatic. Continue bowel motivation Consider transfer to surgical floor.
[2017-05-17] MEDS: D5-1/2NS with KCL 20mEq 1,000 ML IV SCH ×2 (03:06→09:31)
[2017-05-17] MEDS ORDERED: D5-1/2NS with KCL 20mEq 1,000 ML IV SCH (09:00)
[2017-05-17] MEDS: PANTOPRAZOLE 40 MG INJECTION IVP SCH (09:28)
[2017-05-17] MEDS: ENOXAPARIN 40 MG/0.4 ML INJECTION SQ SCH (09:28)
[2017-05-17] MEDS ORDERED: Bisacodyl EC TAB 5 MG TABLET PO ONE (11:46)
[2017-05-17] MEDS: POLYETHYL GLYCOL 3350 17gm PACKET PO SCH (12:23)
--- NOTE | 2017-05-17 12:36 | Progress Note ---
DATE 05/17/2017 FINDINGS Mrs. Otero was stating that she felt better today. She denies any nausea. OBJECTIVE VITALS: Afebrile. Normotensive. Please refer to EMR. CHEST: Decreased subcutaneous emphysema. Chest is clear auscultation. ABDOMEN: Soft. Minimal incisional tenderness. LABORATORY/RADIOGRAPHIC EVALUATION The patient had a CBC today and her white count has returned to normal at 5.7. Hemoglobin is overall stable at 8.0. BMP obtained and found to be within normal limits. Pathology is still pending. ASSESSMENT Status post robotic assisted laparoscopic right hemicolectomy, patient doing well. PLAN Transfer to floor. JEFFY [place]. Begin regular diet. Hopefully within the next 24 -48 hours the patient will be able to be discharged to home. I am pleased with the patient's progress. ASAD
--- NOTE | 2017-05-17 13:10 | General Surgery Progress Note ---
Subjective Patient reports: feels better, pain is less, tolerating a regular diet, voiding w/o difficulty, no flatus, no bowel movement (BUT FEELS LIKE SHE IS CLOSE TO HAVING A BM), afebrile - Vital Signs Last Vital Signs Temp 98.9 F 05/17/17 08:00 Pulse 85 05/17/17 11:30 Resp 19 05/17/17 11:30 BP 108/53 05/17/17 11:05 Pulse Ox 98 05/17/17 11:30 - Laboratory Result Diagrams: 05/17/17 04:43 05/17/17 04:43 - Abnormal Exam Respiratory: other (bilateral crackles at bases, right > left. much improved from yesterday, could be partly subQ emphysema improving) Skin: Some subQ emphysema remains, right hand and arm, eye lids and neck, but all are much improved even from yesterday. - Normal Exam General: awake, alert, no acute distress Cardiovascular: regular rhythm, regular rate Abdominal: soft, appropriately tender, incision(s) (dressings removed today and old blood noted, debbie in tact, no erythema, some ecchymosis at pfannenstiel incision) Neurological: CN 2-12 grossly intact Assessment and Plan (1) Adenocarcinoma of cecum Current Visit: Yes Status: Resolved (2) Mitral valvular prolapse Current Visit: Yes Status: Chronic (3) Anxiety Current Visit: Yes Status: Chronic (4) Tachycardia Current Visit: Yes Status: Acute (5) Oliguria Current Visit: Yes Status: Acute (6) Intermittent palpitations Current Visit: Yes Status: Acute (7) Subcutaneous emphysema associated with surgical procedure Current Visit: Yes Status: Acute Qualifiers: Encounter type: initial encounter Qualified Code(s): T81.82XA - Emphysema ( subcutaneous) resulting from a procedure, initial encounter Plan: She has been transferred to surgical floor. Regular diet for lunch. No flatus or BM yet, but feels like she will produce some stool soon. Miralax and Dulcolax PO have been ordered. States pain is minimal except for getting in and out of bed. Will DC DYE HOUSE WORKER and IVF. [place] available. Anticipate discharge tomorrow. I will see her again in the morning. Hospital Course Summary Disclaimer: The visit summary below is not to be considered part of the above Progress Note. Hospital Course: 05/14/2017 Robotic assisted right hemicolectomy. See operative note for details. Transferred to CCU post op, intubated due to poor respiratory drive, and noticeable SubQ emphysema. 05/15/2017 Earlier this morning we did elect to extubate the patient. Will begin the patient on clear liquids today. Otherwise, will continue with current care. Hospitalist consult note: Impression Hospitalist consult note: Status post robotic laparoscopic right hemicolectomy Cecal carcinoma Postprocedure subcutaneous emphysema Tachycardia Hypotension with history of hypertension Dyslipidemia Mitral valve prolapse Anxiety Plan Appreciate medical consultation with Hospital services, Dr. Pham. Patient's primary care provider is Dr. Adele Voss with [facility]. Will give a 500 ML bolus of normal saline over 1 hour for gentle hydration. Will then continue on D5 1/2 NS with 20 of KCl at 125 ML per hour Continue to reevaluate tachycardia and hypotension. In reviewing old records, it does appear that patient has had intermittent tachycardia and has used atenolol 25 milligrams as needed in the past. Reviewed CBC at 1744 - Hgb was stable at 9.2. Will recheck again at 2200 and monitor for any evidence of bleeding. Continue to monitor subcutaneous emphysema as this will likely continue to improve over time. Continue to encourage patient to utilize DYE HOUSE WORKER for pain control. She does appear to be somewhat nervous about overdoing pain medications. Ativan as needed for anxiety Lovenox subcutaneous daily for DVT prophylaxis All surgical and postoperative orders continue as per Dr. Edwards 05/16/17 16:44 Hospitalist note: Plan Verbal order given for PRN Ativan Subcutaneous emphysema should continue to improve Labs and vitals signs are stable. Blood pressures are still running a bit low but she is asymptomatic. Continue bowel motivation 05/17/17 13:16 Surgery note: She has been transferred to surgical floor. Regular diet for lunch. No flatus or BM yet, but feels like she will produce some stool soon. Miralax and Dulcolax PO have been ordered. States pain is minimal except for getting in and out of bed. Will DC DYE HOUSE WORKER and IVF. [place] available. 05/17/17 13:19 05/17/17 13:20 Sepsis Assessment - Evaluation Sepsis screening result: No Definite Risk
--- NOTE | 2017-05-17 15:04 | Progress Note ---
<Danisha Lieberman - Last Filed: 05/17/17 15:16> Subjective: Patient seen today lying in her bed. She reports she is feeling well. She feels her pain is controlled. She no longer has a ELEVATOR CONSTRUCTOR pump. She's not yet had a bowel movement, but feels that she has gas moving. No complaints of chest pain or shortness of breath. She feels the subcutaneous emphysema is improving. Her diet has been advanced and she feels she is tolerating it well. Objective Vital signs: Temperature 98.9 F 05/17/17 08:00 Pulse Rate 85 05/17/17 11:30 Respiratory Rate 19 05/17/17 11:30 Blood Pressure 108/53 05/17/17 11:05 Pulse Oximetry 98 05/17/17 11:30 Height/Weight/BMI: Height 1.63 m Weight 65.1 kg Body Mass Index 21.6 - Constitutional Present: no acute distress, well nourished, well developed - Routine HEENT Exam Head: Present: normocephalic, atraumatic Eye: Present: periorbital swelling (improved from yesterday.) - Routine Respiratory Exam Present: CTA bilaterally, crackles (crackles in the bases versus subcutaneous emphysema). Absent: wheezes - Routine Cardiovascular Exam Present: RRR, S1, S2. Absent: murmur - Routine Abdominal Exam Present: soft, non distended, surgical scars ([place] are intact to surgical wounds. No sign of infection. No drains are present.). Absent: normoactive bowel sounds (hypoactive), tenderness - Routine Extremities Exam Present: no edema, normal capillary refill - Routine Skin Exam Present: dry, warm Comments: Still has some subcutaneous emphysema in the face, neck and chest - Routine Neurological Exam Present: alert, oriented X3 - Routine Lymphatic Exam Lymphatic: Absent: adenopathy - Routine Psychiatric Exam Present: normal affect, normal thought process Results - Labs CBC & Chem 7: 05/17/17 04:43 05/17/17 04:43 - ABG Interpretation ABG results: 05/14/17 05/15/17 15:05 06:00 ABG pH 7.480 H 7.540 H ABG pCO2 30 L 26 L ABG pO2 192 H 130 H ABG HCO3 22 22 ABG Total CO2 23.2 23.0 ABG O2 Saturation 100.0 H 99.0 H ABG Base Excess -0.4 0.8 Assessment and Plan (1) Adenocarcinoma of cecum Current visit: Yes Status: Resolved (2) Subcutaneous emphysema after procedure Current visit: Yes Status: Acute Assessment and Plan: Assessment Status post robotic laparoscopic right hemicolectomy Cecal carcinoma Postprocedure subcutaneous emphysema Tachycardia Hypotension with history of hypertension Dyslipidemia Mitral valve prolapse Anxiety Plan Patient was transferred to surgical floor today. Diet has been advanced. She has MiraLAX and Dulcolax ordered for bowel motivation. Anticipated discharge for tomorrow per surgery team. Sepsis Assessment - Evaluation Sepsis screening result: No Definite Risk Hospital Course Summary Disclaimer: The visit summary below is not to be considered part of the above Progress Note. Hospital Course: 05/14/2017 Robotic assisted right hemicolectomy. See operative note for details. Transferred to CCU post op, intubated due to poor respiratory drive, and noticeable SubQ emphysema. 05/15/2017 Earlier this morning we did elect to extubate the patient. Will begin the patient on clear liquids today. Otherwise, will continue with current care. Hospitalist consult note: Impression Hospitalist consult note: Status post robotic laparoscopic right hemicolectomy Cecal carcinoma Postprocedure subcutaneous emphysema Tachycardia Hypotension with history of hypertension Dyslipidemia Mitral valve prolapse Anxiety Plan Appreciate medical consultation with Hospital services, Dr. Pham. Patient's primary care provider is Dr. Adele Voss with [facility]. Will give a 500 ML bolus of normal saline over 1 hour for gentle hydration. Will then continue on D5 1/2 NS with 20 of KCl at 125 ML per hour Continue to reevaluate tachycardia and hypotension. In reviewing old records, it does appear that patient has had intermittent tachycardia and has used atenolol 25 milligrams as needed in the past. Reviewed CBC at 1744 - Hgb was stable at 9.2. Will recheck again at 2200 and monitor for any evidence of bleeding. Continue to monitor subcutaneous emphysema as this will likely continue to improve over time. Continue to encourage patient to utilize ELEVATOR CONSTRUCTOR for pain control. She does appear to be somewhat nervous about overdoing pain medications. Ativan as needed for anxiety Lovenox subcutaneous daily for DVT prophylaxis All surgical and postoperative orders continue as per Dr. Edwards 05/16/17 16:44 Hospitalist note: Verbal order given for PRN Ativan Subcutaneous emphysema should continue to improve Labs and vitals signs are stable. Blood pressures are still running a bit low but she is asymptomatic. Continue bowel motivation 05/17/17 13:16 Surgery note: She has been transferred to surgical floor. Regular diet for lunch. No flatus or BM yet, but feels like she will produce some stool soon. Miralax and Dulcolax PO have been ordered. States pain is minimal except for getting in and out of bed. Will DC ELEVATOR CONSTRUCTOR and IVF. [place] available. 05/17/17 13:20 Hospitalist note: Patient was transferred to surgical floor today. Diet has been advanced. She has MiraLAX and Dulcolax ordered for bowel motivation. Anticipated discharge for tomorrow per surgery team. <Carley Pham - Last Filed: 05/17/17 17:52> Objective Vital signs: Temperature 97.2 F 05/17/17 16:30 Pulse Rate 81 05/17/17 16:30 Respiratory Rate 16 05/17/17 16:30 Blood Pressure 106/65 05/17/17 16:30 Pulse Oximetry 93 05/17/17 16:30 Height/Weight/BMI: Height 5 ft 4 in Weight 143 lb 8.335 oz Body Mass Index 21.6 Results - Labs CBC & Chem 7: 05/17/17 04:43 05/17/17 04:43 - ABG Interpretation ABG results: 05/14/17 05/15/17 15:05 06:00 ABG pH 7.480 H 7.540 H ABG pCO2 30 L 26 L ABG pO2 192 H 130 H ABG HCO3 22 22 ABG Total CO2 23.2 23.0 ABG O2 Saturation 100.0 H 99.0 H ABG Base Excess -0.4 0.8 Assessment and Plan (1) Adenocarcinoma of cecum Current visit: Yes Status: Resolved (2) Subcutaneous emphysema after procedure Current visit: Yes Status: Acute Assessment and Plan: I have independently evaluated and examined this patient. I reviewed the chart, the patient's history, and the HEAD SAMPLER/PA's documented findings as above. We discussed and formulated the assessment and plan as above with additions as below. The patient was seen at 1745. She was transferred to the floor. She is sitting up doing well. She has not had results from her bowel program at this point. She anticipates discharge tomorrow. In general, the patient is alert and oriented 3, cooperative with exam, and in no respiratory distress. HEENT: Head is atraumatic, normocephalic, no conjunctival petechiae, no oral thrush, mucous membranes are moist and pink. Lungs: Clear to auscultation without wheezes, crackles or rhonchi CV: Regular rate and rhythm without murmur Abdomen: Soft, nontender, bowel sounds are present, there is no guarding no rebound. Extremities: No clubbing, no cyanosis, no edema. Skin: Warm and dry no sign of rash Neuro: Patient is alert She continues to have diffuse subcutaneous emphysema but it is improved from yesterday. Anticipate home tomorrow. Hospital Course Summary Disclaimer: The visit summary below is not to be considered part of the above Progress Note.
[2017-05-17] MEDS: HYDROCODONE/APAP 5mg/325mg TABLET PO PRN ×2 (15:40→21:17)
[2017-05-17] MEDS: SALINE FLUSH 10ml SYRINGE IV PRN (21:24)
[2017-05-18 02:01] VITALS: RESP 16
[2017-05-18] MEDS: HYDROCODONE/APAP 5mg/325mg TABLET PO PRN (03:39)
[2017-05-18 03:45] VITALS: O2SAT 97
[2017-05-18] MEDS ORDERED: PANTOPRAZOLE 40 MG TABLET PO SCH (06:30)
[2017-05-18] MEDS ORDERED: BISACODYL 10 MG SUPPOSITORY RECTALLY ONE (08:33)
--- NOTE | 2017-05-18 08:39 | General Surgery Progress Note ---
Subjective Patient reports: pain is less (she agreed to try Ibuprofen before taking Halliday. The Halliday makes her a little nauseated, but has not taken it with food, just with water.), tolerating a regular diet, voiding w/o difficulty, no flatus (but feels "rumbling"), no bowel movement (she has had Mirlax daily as well as 3 doses Dulcolax PO), other (denies chest pain, palpitations. Ambulating without difficulty.) - Vital Signs Last Vital Signs Temp 97.8 F 05/18/17 03:44 Pulse 73 05/18/17 03:44 Resp 16 05/18/17 03:44 BP 114/65 05/18/17 03:44 Pulse Ox 97 05/18/17 03:44 - Laboratory Result Diagrams: 05/18/17 04:58 05/18/17 04:58 - Pathology Right colon and terminal ileum: Invasive moderately differentiated adenocarcinoma. lymph nodes involved - Abnormal Exam Abdominal: hypoactive bowel sounds Skin: SubQ emphysema has resolved - Normal Exam General: awake, alert, no acute distress Cardiovascular: regular rhythm, regular rate Respiratory: equal bilaterally Abdominal: soft, appropriately tender (at trocar and pfannensteil incisions), no guarding, incision(s) (CDI, debbie in tact) Assessment and Plan (1) Adenocarcinoma of cecum Current Visit: Yes Status: Resolved (2) Mitral valvular prolapse Current Visit: Yes Status: Chronic (3) Anxiety Current Visit: Yes Status: Chronic (4) Tachycardia Current Visit: Yes Status: Acute (5) Oliguria Current Visit: Yes Status: Acute (6) Intermittent palpitations Current Visit: Yes Status: Acute (7) Subcutaneous emphysema associated with surgical procedure Current Visit: Yes Status: Acute Qualifiers: Encounter type: initial encounter Qualified Code(s): T81.82XA - Emphysema ( subcutaneous) resulting from a procedure, initial encounter Plan: Still no stool. Will give a Dulcolax suppository, the anastomosis is right sided. If no results will give a "Brown Cow" Encouraged Ibuprofen, and adding Halliday only if needed. She may discharge to home later today of she has a reasonable stool. Encouraged her to shower and more ambulation. Hospital Course Summary Disclaimer: The visit summary below is not to be considered part of the above Progress Note. Hospital Course: 05/14/2017 Robotic assisted right hemicolectomy. See operative note for details. Transferred to CCU post op, intubated due to poor respiratory drive, and noticeable SubQ emphysema. 05/15/2017 Earlier this morning we did elect to extubate the patient. Will begin the patient on clear liquids today. Otherwise, will continue with current care. Hospitalist consult note: Impression Hospitalist consult note: Status post robotic laparoscopic right hemicolectomy Cecal carcinoma Postprocedure subcutaneous emphysema Tachycardia Hypotension with history of hypertension Dyslipidemia Mitral valve prolapse Anxiety Plan Appreciate medical consultation with Hospital services, Dr. Pham. Patient's primary care provider is Dr. Adele Voss with [facility]. Will give a 500 ML bolus of normal saline over 1 hour for gentle hydration. Will then continue on D5 1/2 NS with 20 of KCl at 125 ML per hour Continue to reevaluate tachycardia and hypotension. In reviewing old records, it does appear that patient has had intermittent tachycardia and has used atenolol 25 milligrams as needed in the past. Reviewed CBC at 1744 - Hgb was stable at 9.2. Will recheck again at 2200 and monitor for any evidence of bleeding. Continue to monitor subcutaneous emphysema as this will likely continue to improve over time. Continue to encourage patient to utilize CARPET SEWING MACHINE OPERATOR for pain control. She does appear to be somewhat nervous about overdoing pain medications. Ativan as needed for anxiety Lovenox subcutaneous daily for DVT prophylaxis All surgical and postoperative orders continue as per Dr. Edwards 05/16/17 16:44 Hospitalist note: Verbal order given for PRN Ativan Subcutaneous emphysema should continue to improve Labs and vitals signs are stable. Blood pressures are still running a bit low but she is asymptomatic. Continue bowel motivation 05/17/17 13:16 Surgery note: She has been transferred to surgical floor. Regular diet for lunch. No flatus or BM yet, but feels like she will produce some stool soon. Miralax and Dulcolax PO have been ordered. States pain is minimal except for getting in and out of bed. Will DC CARPET SEWING MACHINE OPERATOR and IVF. Halliday available. 05/17/17 13:20 Hospitalist note: Patient was transferred to surgical floor today. Diet has been advanced. She has MiraLAX and Dulcolax ordered for bowel motivation. Anticipated discharge for tomorrow per surgery team. 05/18/17 08:46 Still no stool. Will give a Dulcolax suppository, the anastomosis is right sided. If no results will give a "Brown Cow" Encouraged Ibuprofen, and adding Halliday only if needed. She may discharge to home later today of she has a reasonable stool. Encouraged her to shower and more ambulation. Sepsis Assessment - Evaluation Sepsis screening result: No Definite Risk
--- NOTE | 2017-05-18 08:54 | Discharge Instructions ---
Discharge Plan - Med Rec/Dispo Referrals/Follow Up: Gurjit Edwards MD [Physician] - 06/05/17 (call [phone] to schedule a time for post op visit on Jun 05) Prescriptions: New Hydrocodone/APAP 5/325 [[place] 5/325] 1 - 2 tab PO Q5H PRN #20 tab PRN Reason: Pain Milk of Magnesia [Mom] 60 ml PO DAILY PRN udc PRN Reason: Constipation Ibuprofen [Motrin] 600 mg PO Q6H PRN tablet PRN Reason: Pain Continue Pravastatin [Pravachol] 40 mg PO HS Estradiol Patch [Climara Patch] 1 patch TOP Q7D HydroCHLOROthiazide [Hydrodiuril] 1 tab PO WB LORazepam [Lorazepam] 0.5 tab PO HS PRN PRN Reason: Sleep Atenolol [Tenormin] 1 tab PO PRN Cholecalciferol (Vitamin D3) [Vitamin D3] 1 tab PO DAILY Discharge Instructions/Outpatient Orders: Final Provider Discharge Instructions Location: Determined By Patient - Disposition 01 Discharged Home, Self-Care
[2017-05-18 09:22] VITALS: BP 108/67; PULSE 66; TEMP 97.7
[2017-05-18] MEDS: POLYETHYL GLYCOL 3350 17gm PACKET PO SCH (09:55)
[2017-05-18] MEDS: ENOXAPARIN 40 MG/0.4 ML INJECTION SQ SCH (09:55)
[2017-05-18] MEDS: ONDANSETRON 4 MG/2 ML INJECTION IVP PRN (16:53)
--- NOTE | 2017-05-18 18:16 | Progress Note ---
Subjective: Pt was seen and examined at 10am today, she was doing well and stated could be going home later today. Denied any pain was tolerating well PO. Objective Vital signs: Temperature 97.7 F 05/18/17 08:00 Pulse Rate 66 05/18/17 08:00 Respiratory Rate 16 05/18/17 08:00 Blood Pressure 108/67 05/18/17 08:00 Pulse Oximetry 97 05/18/17 08:00 Rhythm: Normal Sinus Rhythm Height/Weight/BMI: Height 5 ft 4 in Weight 64.8 kg Body Mass Index 21.6 - Constitutional Present: no acute distress, thin - Routine HEENT Exam Head: Present: normocephalic, atraumatic Eye: Present: EOMI, PERRL - Routine Respiratory Exam Present: CTA bilaterally - Routine Cardiovascular Exam Present: RRR - Routine Abdominal Exam Present: tenderness, distended - Routine Extremities Exam Absent: cyanosis, clubbing, edema - Routine Neurological Exam Present: alert, oriented X3 - Routine Psychiatric Exam Present: normal affect, good insight, good judgment Results - Labs CBC & Chem 7: 05/18/17 04:58 05/18/17 04:58 - ABG Interpretation ABG results: 05/14/17 05/15/17 15:05 06:00 ABG pH 7.480 H 7.540 H ABG pCO2 30 L 26 L ABG pO2 192 H 130 H ABG HCO3 22 22 ABG Total CO2 23.2 23.0 ABG O2 Saturation 100.0 H 99.0 H ABG Base Excess -0.4 0.8 Assessment and Plan (1) Adenocarcinoma of cecum Current visit: Yes Status: Resolved (2) Subcutaneous emphysema after procedure Current visit: Yes Status: Acute Assessment and Plan: This is a 72 YO female that came for colon cancer and had hemicolectomy for this and was doing pretty well this AM - per surgical notes, pt has been D/C home this PM. Dx 1) S/P Hemicolectomy for Colon cancer 2) Expected sub-cutaneous emphysema after procedure. 3) Anemia most likely related to colon malignancy. Should be followed as outpatient Condition on D/C stable. - Time spent with patient less than 15 minutes Sepsis Assessment - Evaluation Sepsis screening result: No Definite Risk Hospital Course Summary Disclaimer: The visit summary below is not to be considered part of the above Progress Note. Hospital Course: 05/14/2017 Robotic assisted right hemicolectomy. See operative note for details. Transferred to CCU post op, intubated due to poor respiratory drive, and noticeable SubQ emphysema. 05/15/2017 Earlier this morning we did elect to extubate the patient. Will begin the patient on clear liquids today. Otherwise, will continue with current care. Hospitalist consult note: Impression Hospitalist consult note: Status post robotic laparoscopic right hemicolectomy Cecal carcinoma Postprocedure subcutaneous emphysema Tachycardia Hypotension with history of hypertension Dyslipidemia Mitral valve prolapse Anxiety Plan Appreciate medical consultation with Hospital services, Dr. Pham. Patient's primary care provider is Dr. Adele Voss with [facility]. Will give a 500 ML bolus of normal saline over 1 hour for gentle hydration. Will then continue on D5 1/2 NS with 20 of KCl at 125 ML per hour Continue to reevaluate tachycardia and hypotension. In reviewing old records, it does appear that patient has had intermittent tachycardia and has used atenolol 25 milligrams as needed in the past. Reviewed CBC at 1744 - Hgb was stable at 9.2. Will recheck again at 2200 and monitor for any evidence of bleeding. Continue to monitor subcutaneous emphysema as this will likely continue to improve over time. Continue to encourage patient to utilize WEBBING SUPERVISOR for pain control. She does appear to be somewhat nervous about overdoing pain medications. Ativan as needed for anxiety Lovenox subcutaneous daily for DVT prophylaxis All surgical and postoperative orders continue as per Dr. Edwards 05/16/17 16:44 Hospitalist note: Plan Verbal order given for PRN Ativan Subcutaneous emphysema should continue to improve Labs and vitals signs are stable. Blood pressures are still running a bit low but she is asymptomatic. Continue bowel motivation 05/17/17 13:16 Surgery note: She has been transferred to surgical floor. Regular diet for lunch. No flatus or BM yet, but feels like she will produce some stool soon. Miralax and Dulcolax PO have been ordered. States pain is minimal except for getting in and out of bed. Will DC WEBBING SUPERVISOR and IVF. [place] available. 05/17/17 13:19 05/17/17 13:20
== END 2017-05-18 18:10 | disposition home or self-care (01) | DRG 331 ==
LOC: CCU 06:25 → SRG 05-17 11:40
PROVIDERS: ADMIT Surgery; ATTEND Surgery

== ENCOUNTER 2017-05-30 12:03 | Observation (INO) ==
[2017-05-30 13:04] VITALS: BMI 22.3
[2017-05-30] MEDS ORDERED: ACETAMINOPHEN 325 MG TABLET PO PRN (13:24)
[2017-05-30] MEDS ORDERED: ONDANSETRON 4 MG/2 ML INJECTION IVP PRN (13:24)
[2017-05-30] MEDS ORDERED: MORPHINE SULFATE 4 MG SYRINGE IVP PRN (13:24)
[2017-05-30] MEDS ORDERED: POTASSIUM CHLORIDE INJ 40 MEQ in NS 1,000 ML IV SCH ×2 (13:30→17:30)
[2017-05-30] MEDS ORDERED: ATENOLOL 25 MG TABLET PO SCH (13:45)
[2017-05-30] MEDS ORDERED: ESTRADIOL 0.05 MG/24 HR TD SCH (13:45)
--- NOTE | 2017-05-30 13:48 | History & Physical Report ---
<Selina Armstrong Naldo - Last Filed: 05/30/17 14:19> History of Present Illness Date: 05/30/17 Chief complaint: hypokalemia, c.diff HPI: Dominga Otero is a very pleasant 72-year-old patient who has been under the primary care of her PCP, Dr. Adele Voss and is a known patient to the hospitalist service. She underwent a right partial hemicolectomy on 05/14/[address] Edwards due to recently diagnosis of cecal carcinoma. She reports that she has been doing well since her surgery until 05/23/17 when she developed watery-diarrhea. She reports multiple watery-diarrhea stools throughout the day and night of 05/23 leading her to call Dr. Edwards's office. She was able to provide a stool sample on 05/24 and was found to have c.diff. She was started on Flagyl on 05/24 for treatment of her c.diff. She states that the Flagyl makes her very nauseous but she has found that if she takes Zofran 30 minutes prior to her Flagyl in addition to eating prior to taking the Flagyl, she is not as nauseous. She also complains of progressively worsening generalized fatigue. She denies any recent fevers, chill, chest pain, shortness of breath, palpitations, heart racing, vomiting or dysuria. She does admit to some mild abdominal bloating and gas but denies any acute pain. Due to her progressive fatigue and recent diagnosis of c.diff, she followed up with her PCP and was seen in clinic today, 05/30/17. While in clinic, labs were obtained and revealed persistent, stable anemia with hemoglobin of 9.4, thrombocytosis with platelets at 536 and significant hypokalemia with potassium of 2.5. Dr. Coats was contacted and Mrs. Otero was directly admitted [place] [facility] [place] for further evaluation and treatment including fluid resuscitation, close monitoring on telemetry and electrolyte replacement. Her length of stay is not expected to exceed more than 2 over nights. On exam, she is seen immediately upon her arrival to her room, 164. She is resting in bed and in no apparent distress. She is alert and orientated x 3 and denies any current pain or concerns. She reports that her last BM was this morning and it was soft and formed without blood. No hematochezia or melana noted. Review of Systems Comprehensive ROS: completed and no additional positive findings except those as stated - Constitutional Constitutional: Present: fatigue, increased appetite, weakness (generalized). Absent: chills, fever(s) - EENMT Eyes: Absent: photophobia Nose: Absent: nosebleeds Mouth/Throat: Absent: sore throat, changes in swallowing - Cardiovascular Cardiovascular: Present: heart murmur. Absent: chest pain, palpitations, syncope, dyspnea on exertion, orthopnea, edema Vascular: Absent: pedal edema, unilateral swelling - Respiratory Respiratory: Absent: cough, dyspnea, hemoptysis, dyspnea on exertion, wheezing - Gastrointestinal Gastrointestinal: Present: change in bowel habits, diarrhea, nausea. Absent: abdominal pain, hematemesis, hematochezia, vomiting - Genitourinary Genitourinary: Absent: dysuria, urinary frequency Menstruation: post hysterectomy - Musculoskeletal Musculoskeletal: Present: muscle weakness. Absent: deformity - Integumentary/Breasts Integumentary: Absent: rash, jaundice - Neurological Neurological: Present: weakness (generalized). Absent: abnormal speech, confusion, dizziness, focal weakness - Psychiatric Psychiatric: Present: anxiety - Endocrine Endocrine: Absent: palpitations, polyuria - Hematologic/Lymphatic Hematologic/Lymphatic: Present: easy bruising - Allergic/Immunologic Allergic/Immunologic: Absent: tongue swelling [facility] Patient Stated Medical History Cecal carcinoma - s/p right hemicolectomy. Cataracts. Hearing Loss. Hypertension. Mitral valve prolapse. Anemia. Clostridium Difficile. Reported history of tachycardia. Fibrocystic breast disease. Endometriosis. Cochleovestibular and Meniere's disease. Dyslipidemia. Anxiety. Chronic rhinitis. Surgical History: Robotic laparoscopic right Hemicolectomy-05/14/17 (Dr. Edwards ). Right lumpectomy-1998. Total abdominal hysterectomy with BSO. Forearm/ wrist surgery-2002. Colonoscopy-2008, 04/2017. Cystocele and rectocele-2008.. Family History Updates: Father - age 94, CHF, dementia. Mother - age 89, dementia. Paternal Grandfather - pancreatic cancer. - Social History Smoking status: Never smoker Substance use type: does not use Alcohol intake frequency: holidays/special occasions only Housing: house Household members: spouse Current occupational status: retired Current residence: Apartment/Private Home Social history: PCP - Dr. Voss. 54 years with 2 daughters. Medications Home Medications Medication Instructions Recorded Confirmed Type Estradiol Patch [Climara Patch] 1 patch TOP Q7D 05/01/17 05/30/17 History LORazepam [Lorazepam] 0.5 tab PO HS PRN 05/01/17 05/30/17 History Pravastatin [Pravachol] 40 mg PO HS 05/01/17 05/30/17 History Atenolol [Tenormin] 1 tab PO PRN 05/02/17 05/30/17 History Cholecalciferol (Vitamin D3) 1 tab PO DAILY 05/10/17 05/30/17 History [Vitamin D3] Ondansetron [Zofran Odt] 1 tab PO Q6HR PRN 05/25/17 05/30/17 History metroNIDAZOLE [Flagyl] 500 mg PO TID 05/25/17 05/30/17 History Allergies Allergy/AdvReac Type Severity Reaction Status Date / Time bismuth subgallate Allergy Intermediate Hives Verified 05/30/17 13:12 hydrocortisone Allergy Intermediate HIVES Verified 05/25/17 05:19 resorcinol Allergy Intermediate HIVES Verified 05/25/17 05:19 telithromycin Allergy Intermediate NAUSEA Verified 05/25/17 05:19 zinc oxide Allergy Intermediate HIVES Verified 05/25/17 05:19 Sulfa (Sulfonamide Allergy Unknown Verified 05/25/17 05:19 Antibiotics) Exam Vital Signs: Temperature 98.1 F 05/30/17 12:33 Pulse Rate 62 05/30/17 12:33 Respiratory Rate 20 05/30/17 12:33 Blood Pressure 125/74 05/30/17 12:33 Pulse Oximetry 96 05/30/17 12:33 Telemetry Rhythm: Sinus Dysrhythmia Height/Weight/BMI: Height 5 ft 3 in Weight 126 lb 1.671 oz Body Mass Index 22.3 - Constitutional Present: no acute distress, well developed, thin, cooperative - Routine HEENT Exam Head: Present: normocephalic, atraumatic Eye: Present: PERRL. Absent: conjunctival icterus ENT: Present: mucous membranes dry - Routine Neck Exam Present: supple, full ROM, trachea midline - Routine Chest/Breast/Axilla Exam Chest wall: Absent: pacemaker - Routine Respiratory Exam Present: CTA bilaterally. Absent: stridor, wheezes, crackles - Routine Cardiovascular Exam Present: RRR, S1, S2, murmur Comments: history of MVP. - Routine Abdominal Exam Present: soft, normoactive bowel sounds, non tender, distended - Routine Extremities Exam Present: no edema, full ROM, pulses intact. Absent: calf tenderness - Routine Back/Spine/Pelvis Exam Back/Spine: Present: full ROM - Routine Skin Exam Present: dry, warm. Absent: jaundice Comments: afebrile - Routine Neurological Exam Present: alert, oriented X3, moving all extremities, normal tone, normal speech. Absent: facial asymmetry - Routine Psychiatric Exam Present: normal affect, cooperative, anxious Assessment and Plan (1) Hypokalemia Current visit: Yes Status: Acute (2) C. difficile colitis Current visit: Yes Status: Acute DVT Prophylaxis: SCD's Resuscitation Status: Full Code Assessment and Plan: 05/30/17: [facility] - Admission. Assessment Hypokalemia, acute, present prior to admission. Clostridium Difficile, acute, present prior to admission. Cecal carcinoma - s/p right hemicolectomy. Hypertension, no current treatment, chronic. Mitral valve prolapse, chronic. Anemia, chronic. Reported history of tachycardia, unspecific. Cochleovestibular and Meniere's disease. Dyslipidemia, chronic. Anxiety, chronic. Plan Admit to observation status under the care of Dr. Coats. Anticipate the patient's length of stay will not exceed more than 2 over nights. S/P right hemicolectomy on 05/14/[address] Edwards. Recent diagnosis of c.diff. Continue home Flagyl 500mg TID for c.diff. Patient reports nausea with Flagyl. Zofran as needed for nausea. Full liquid diet as tolerated. Hypokalemia noted in clinic prior to admission with potassium at 2.5. Will initiate IVF NS with KCl 40 mEq at a rate of 250cc/hr x 1 liter and then decrease the rate to 100cc/hr for fluid resuscitation and treatment of her hypokalemia. Will check Mg and phos now in light of diarrhea and fluid loss. In reviewing prior medical records, it appears that the patient has had intermittent tachycardia in the past and has used atenolol 25mg as needed in the past. Monitor closely on telemetry and continue home atenolol as needed. Will recheck BMP in AM to monitor electrolytes and renal function. Monitor urinary output and daily weight closely for signs of urinary retention and/or fluid overload. History of anemia. CBC in clinic prior to admission was stable at 9.4. Will continue to monitor trends during admission. Encourage incentive spirometry for pulmonary toileting. Morphine as needed for pain control. Ativan as needed for anxiety. Will discuss further orders and plan of care with attending, Dr. Coats. Upon discharge, patient's care will be returned to her PCP, Dr. Voss at [facility]. We appreciate being able to be apart of Mrs. Otero's care. - Time spent with patient greater than 35 minutes Hospital Course Summary Disclaimer: The visit summary below is not to be considered part of the above Progress Note. Hospital Course: 05/30/17: [facility] - Admission. Assessment Hypokalemia, acute, present prior to admission. Clostridium Difficile, acute, present prior to admission. Cecal carcinoma - s/p right hemicolectomy. Hypertension, no current treatment, chronic. Mitral valve prolapse, chronic. Anemia, chronic. Reported history of tachycardia, unspecific. Cochleovestibular and Meniere's disease. Dyslipidemia, chronic. Anxiety, chronic. Plan Admit to observation status under the care of Dr. Coats. Anticipate the patient's length of stay will not exceed more than 2 over nights. S/P right hemicolectomy on 05/14/[address] Edwards. Recent diagnosis of c.diff. Continue home Flagyl 500mg TID for c.diff. Patient reports nausea with Flagyl. Zofran as needed for nausea. Full liquid diet as tolerated. Hypokalemia noted in clinic prior to admission with potassium at 2.5. Will initiate IVF NS with KCl 40 mEq at a rate of 250cc/hr x 1 liter and then decrease the rate to 100cc/hr for fluid resuscitation and treatment of her hypokalemia. Will check Mg and phos now in light of diarrhea and fluid loss. In reviewing prior medical records, it appears that the patient has had intermittent tachycardia in the past and has used atenolol 25mg as needed in the past. Monitor closely on telemetry and continue home atenolol as needed. Will recheck BMP in AM to monitor electrolytes and renal function. Monitor urinary output and daily weight closely for signs of urinary retention and/or fluid overload. History of anemia. CBC in clinic prior to admission was stable at 9.4. Will continue to monitor trends during admission. Encourage incentive spirometry for pulmonary toileting. Morphine as needed for pain control. Ativan as needed for anxiety. Will discuss further orders and plan of care with attending, Dr. Coats. Upon discharge, patient's care will be returned to her PCP, Dr. Voss at [facility]. We appreciate being able to be apart of Mrs. Otero's care. <Jorge LQuin - Last Filed: 05/30/17 17:22> History of Present Illness Date: 05/30/17 [facility] Patient Stated Medical History Cerebrovascular Accident No Paralysis No Seizures No Syncope No Cataracts Yes Hearing Loss Yes: lt ear Cardiac Arrhythmia Yes: rapid at times Hypertension Yes: NO LONGER ON MEDS Valvular Heart Disease Yes: MVP Other Cardiology Yes: mitral valve prolapse. seen by managed care manager . no intervention needed. Asthma No Bronchitis No Chronic Obstructive Pulmonary No Disease (COPD) Pneumonia No Pulmonary Edema No Pulmonary Embolism No Sleep Apnea No Tuberculosis No Other Respiratory No Diabetes Mellitus Type 1 No Diabetes Mellitus Type 2 No Cirrhosis No Gastroesophageal Reflux No Disease Gastrointestinal Bleeding No Hepatitis No Hiatal Hernia No Obstructive Bowel No Ulcer No Other GI No: COLON CANCER 05/14/17 Anemia Yes Osteoarthritis No Other Musculoskeletal No Clostridium Difficile Yes: CURRENT Anesthesia Reactions No Blood Transfusions No Chemotherapy No Malignant Hyperthermia No Other No Depression No Substance Use Disorder occasional Endometriosis Yes Now No Exam Vital Signs: Temperature 98.3 F 05/30/17 15:24 Pulse Rate 58 L 05/30/17 15:24 Respiratory Rate 16 05/30/17 15:31 Blood Pressure 147/67 H 05/30/17 15:24 Pulse Oximetry 100 05/30/17 15:24 Height/Weight/BMI: Height 1.6 m Weight 57.2 kg Body Mass Index 22.3 Assessment and Plan (1) Hypokalemia Current visit: Yes Status: Acute (2) C. difficile colitis Current visit: Yes Status: Acute Hospital Course Summary Disclaimer: The visit summary below is not to be considered part of the above Progress Note. Hospital Course: 05/30/17 17:18 I reviewed this chart, the patient history, and the CONSTRUCTION PIT WORKER's/PA's documented findings as above. We discussed and formulated the assessment and plan as above with the additions below.-Dr. Coats Patient states that she was very weak today and presented to her primary care's office. She had a low potassium of 2.5. She's been taking hydrochlorothiazide 25 mg daily for several years for lower extremity edema. She has had diarrhea for the past week secondary to C. difficile, but diarrhea has improved now. Appetite has been okay. She requires Zofran prior to eating and then later takes her Flagyl and seems to tolerate it better this way. She denies any abdominal pain. She has not had any fevers or chills. On exam she is alert and oriented 3 and in no acute distress. Chest is clear to auscultation. Cardiovascular reveals a regular rate and rhythm. Abdomen is soft and nontender. Extremities are free of edema. Magnesium is normal. Potassium is 2.5. Impression and plan Hypokalemia is likely secondary to her recent diarrhea along with the use of hydrochlorothiazide. She is getting IV potassium 40 mEq over 4 hours. Will give 40 mEq of potassium by mouth now with supper. We'll check a potassium level at 7 :30 PM and again tomorrow morning. We'll hold hydrochlorothiazide for now. Regarding C. difficile, will continue Flagyl. Continue Zofran as needed for nausea. Continue on atenolol for hypertension and intermittent tachycardia. Continue on telemetry.
[2017-05-30] MEDS: METRONIDAZOLE 500 MG PO SCH ×2 (16:00→21:45)
[2017-05-30] MEDS ORDERED: LORazepam 1 MG TABLET PO PRN (17:02)
[2017-05-30] MEDS ORDERED: SALINE FLUSH 10ml SYRINGE IV PRN (18:57)
[2017-05-30] MEDS: ONDANSETRON ODT 4 MG TABLET PO PRN (20:40)
[2017-05-30] MEDS ORDERED: PRAVASTATIN 40 MG TABLET PO SCH (21:00)
[2017-05-31 02:22] VITALS: O2SAT 99
[2017-05-31] MEDS: ONDANSETRON ODT 4 MG TABLET PO PRN (08:38)
--- NOTE | 2017-05-31 09:29 | Discharge Summary ---
<Danisha Lieberman - Last Filed: 05/31/17 11:50> Discharge Information Date of admission: 05/30/17 12:15 Anticipated date of discharge: 05/31/17 Attending Physician: Quin Coats MD Primary care physician: Adele Voss MD Consults: none - Discharge Diagnosis (1) Hypokalemia Status: Resolved (2) C. difficile colitis Status: Resolved Discharge Diagnosis: Cecal carcinoma - s/p right hemicolectomy. Hypertension, no current treatment, chronic. Mitral valve prolapse, chronic. Anemia, chronic. Reported history of tachycardia, unspecific. Cochleovestibular and Meniere's disease. Dyslipidemia, chronic. Anxiety, chronic - Laboratory Labs: 05/31/17 04:17 Laboratory Tests 05/30/17 05/30/17 10:20 19:58 Potassium 3.0 L D Phosphorus 2.8 Magnesium 2.1 History of Present Illness HPI: HPI on admission: Dominga tOero is a very pleasant 72-year-old patient who has been under the primary care of her PCP, Dr. Adele Voss and is a known patient to the hospitalist service. She underwent a right partial hemicolectomy on 05/14/[address] Edwards due to recently diagnosis of cecal carcinoma. She reports that she has been doing well since her surgery until 05/23/17 when she developed watery-diarrhea. She reports multiple watery-diarrhea stools throughout the day and night of 05/23 leading her to call Dr. Edwards's office. She was able to provide a stool sample on 05/24 and was found to have c.diff. She was started on Flagyl on 05/24 for treatment of her c.diff. She states that the Flagyl makes her very nauseous but she has found that if she takes Zofran 30 minutes prior to her Flagyl in addition to eating prior to taking the Flagyl, she is not as nauseous. She also complains of progressively worsening generalized fatigue. She denies any recent fevers, chill, chest pain, shortness of breath, palpitations, heart racing, vomiting or dysuria. She does admit to some mild abdominal bloating and gas but denies any acute pain. Due to her progressive fatigue and recent diagnosis of c.diff, she followed up with her PCP and was seen in clinic today, 05/30/17. While in clinic, labs were obtained and revealed persistent, stable anemia with hemoglobin of 9.4, thrombocytosis with platelets at 536 and significant hypokalemia with potassium of 2.5. Dr. Coats was contacted and Mrs. Otero was directly admitted to [facility] in observation status for further evaluation and treatment including fluid resuscitation, close monitoring on telemetry and electrolyte replacement. Her length of stay is not expected to exceed more than 2 over nights. On exam, she is seen immediately upon her arrival to her room, 164. She is resting in bed and in no apparent distress. She is alert and orientated x 3 and denies any current pain or concerns. She reports that her last BM was this morning and it was soft and formed without blood. No hematochezia or melena noted. Objective Vital signs: Temperature 98.3 F 05/31/17 00:00 Pulse Rate 65 05/31/17 00:00 Respiratory Rate 20 05/31/17 00:00 Blood Pressure 94/52 05/31/17 00:00 Pulse Oximetry 99 05/31/17 00:00 Height/Weight/BMI: Height 1.6 m Weight 57.2 kg Body Mass Index 22.3 - Constitutional Present: no acute distress, well nourished, well developed - Routine HEENT Exam Head: Present: normocephalic, atraumatic ENT: Present: mucous membranes moist - Routine Respiratory Exam Present: CTA bilaterally. Absent: wheezes - Routine Cardiovascular Exam Present: RRR, S1, S2. Absent: murmur - Routine Abdominal Exam Present: soft, normoactive bowel sounds, tenderness (in area of surgical incision), non distended - Routine Extremities Exam Present: no edema, normal capillary refill - Routine Skin Exam Present: dry, warm - Routine Neurological Exam Present: alert, oriented X3 - Routine Lymphatic Exam Lymphatic: Absent: adenopathy - Routine Psychiatric Exam Present: normal affect, normal thought process, cooperative Hospital Course This is a general summary of the patient's hospital course. For more details refer to the complete medical record. Hospital course: Mrs. Otero was admitted on 05/30/17 for hypokalemia which was likely caused from her diarrhea (c. difficile) and hydrochlorothiazide use. Her hydrochlorothiazide was held and she received IV fluids which included a total of 80 mEq and she was also given 2 separate doses of 40 mEq of potassium by mouth. Her potassium came up to 3.8 from 2.5 on admission. She was continued on Flagyl for C. difficile. Her stools have been formed and she's noted that the color is returning to normal and she has just had one bowel movement each day while in the hospital. She was monitored on telemetry during her stay with no significant arrhythmia. Her weakness has improved. She will be discharged today. She'll follow-up with her PCP in 1-2 weeks and finish her course of Flagyl. She will hold the hydrochlorothiazide and try to use only when necessary. If she is needing to use use it routinely, her potassium will need to be followed. We appreciate the opportunity to care for Mrs. Otero. Time spent with patient: discharge greater than 30 minutes DVT Prophylaxis: SCD's Discharge Plan - Med Rec/Dispo Referrals/Follow Up: Adele Voss MD [Family Provider] - (Please schedule patient to see Dr. Voss within the next 7-10 days.) [facility] Instructions: Hypokalemia (GEN), Clostridium Difficile Infection (GEN) Additional Instructions: Complete your course of Flagyl as prescribed by your doctor. Only use hydrochlorothiazide when needed. If taking it routinely, Dr. Voss will monitor your potassium levels. Prescriptions: Continue Pravastatin [Pravachol] 40 mg PO HS Estradiol Patch [Climara Patch] 1 patch TOP Q7D LORazepam [Lorazepam] 0.5 tab PO HS PRN PRN Reason: Sleep Atenolol [Tenormin] 1 tab PO PRN metroNIDAZOLE [Flagyl] 500 mg PO TID Cholecalciferol (Vitamin D3) [Vitamin D3] 1 tab PO DAILY Ondansetron [Zofran Odt] 1 tab PO Q6HR PRN PRN Reason: Nausea Discharge Instructions/Outpatient Orders: Final Provider Discharge Instructions Location: Determined By Patient - Disposition 01 Discharged Home, Self-Care <Quin Coats - Last Filed: 05/31/17 11:59> Discharge Information Date of admission: 05/30/17 12:15 Attending Physician: Quin Coats MD Primary care physician: Adele Voss MD Consults: 05/30/17 13:35 Case Management Consult [CONS] Routine Reason For Exam: discharge planning - Discharge Diagnosis (1) Hypokalemia Status: Resolved (2) C. difficile colitis Status: Resolved Discharge Diagnosis: 05/31/2017-I reviewed this chart, the patient history, and the [employer] MANAGER's/PA's documented findings as above. We discussed and formulated the assessment and plan as above with the additions below.-Dr. Coats Patient is doing well today. Her weakness has resolved. She is eating and drinking well. Her stools are formed. Potassium has normalized. On exam she is alert, oriented and in no acute distress. Chest is clear to auscultation. Cardiovascular reveals a regular rate and rhythm. Abdomen is soft and nontender. Extremities are free of edema. Dismiss to home today in good condition. Recommend follow-up early next week with Dr. Voss and get potassium rechecked. - Laboratory Labs: 05/31/17 04:17 Objective Vital signs: Temperature 97.3 F 05/31/17 08:00 Pulse Rate 62 05/31/17 08:00 Respiratory Rate 16 05/31/17 08:00 Blood Pressure 103/65 05/31/17 08:00 Pulse Oximetry 99 05/31/17 08:00 Height/Weight/BMI: Height 1.6 m Weight 57.1 kg Body Mass Index 22.3 Hospital Course This is a general summary of the patient's hospital course. For more details refer to the complete medical record.
[2017-05-31] MEDS: METRONIDAZOLE 500 MG PO SCH (10:00)
[2017-05-31 11:18] VITALS: BP 103/65; PULSE 62; RESP 16; TEMP 97.3
[2017-05-31] MEDS ORDERED: METRONIDAZOLE 500 MG PO SCH (12:00)
[2017-06-06] MEDS ORDERED: [UNRECOGNIZED DRUG - OTHER] TD SCH (13:45)
== END 2017-05-31 13:30 | disposition home or self-care (01) ==
LOC: MED
PROVIDERS: ADMIT Internal Medicine; ATTEND Internal Medicine

== ENCOUNTER 2017-11-23 13:07 | Inpatient (IN) ==
[2017-11-23] MEDS ORDERED: CEFEPIME 1 GM in NS 100 ML IV ONE (13:19)
[2017-11-23] MEDS ORDERED: NS 1,000 ML IV ONE ×2 (13:22→16:11)
--- NOTE | 2017-11-23 13:33 | Emergency Department Report ---
Weakness HPI - General Chief complaint: Fever Stated complaint: weakness, dec appetite Time Seen by Provider: 11/23/17 13:10 Source: patient, family, EMS, RN notes reviewed, old records reviewed Mode of arrival: EMS Limitations: no limitations - History of Present Illness HPI Narrative: 72yo woman presented to the ER by EMS for evaluation of weakness. Pt is undergoing treatment for colon cancer. Was seen by her PCM two days ago; had a CSF injection yesterday and was told to f/u if she was not feeling better. Pt is feeling extremely weak today; has never had sx like this in the 5 month of treatment so far. MD Complaint: generalized weakness Onset (ago): hour(s) (24) Duration: constant Location: generalized Migration: none Severity: severe Relieving factors: none Exacerbating factors: exertion Context: other (Oncology treatment) - Related Data Home Medications Medication Instructions Recorded Confirmed Estradiol Patch [Climara Patch] 1 patch TOP Q7D 05/01/17 11/23/17 LORazepam [Lorazepam] 1 mg PO TID PRN 05/01/17 11/23/17 Atenolol [Tenormin] 25 mg PO DAILY PRN 05/02/17 11/23/17 Cholecalciferol (Vitamin D3) 5,000 unit PO DAILY 05/10/17 11/23/17 [Vitamin D3] Mupirocin Ointment [Bactroban 1 applicatio TOP PRN PRN 11/23/17 11/23/17 Ointmment] Ondansetron HCl [Ondansetron HCl] 8 mg PO TID PRN 11/23/17 11/23/17 Allergies Allergy/AdvReac Type Severity Reaction Status Date / Time bismuth subgallate Allergy Intermediate Hives Verified 11/23/17 13:59 hydrocortisone Allergy Intermediate HIVES Verified 11/23/17 13:59 resorcinol Allergy Intermediate HIVES Verified 11/23/17 13:59 telithromycin Allergy Intermediate NAUSEA Verified 11/23/17 13:59 zinc oxide Allergy Intermediate HIVES Verified 11/23/17 13:59 Sulfa (Sulfonamide Allergy Unknown Verified 11/23/17 13:59 Antibiotics) Review of Systems All systems: reviewed and negative except as stated Constitutional: Reports: as per HPI, weakness. Denies: fever, chills, weight change, night sweats PFSH Patient Stated Medical History Cerebrovascular Accident No Paralysis No Seizures No Syncope No Cataracts Yes Hearing Loss Yes: L Cardiac Arrhythmia Yes: Rapid Hypertension Yes Valvular Heart Disease Yes: MVP asymptomatic Other Cardiology Yes: mitral valve prolapse. seen by client solutions manager . no intervention needed. Asthma Yes Bronchitis No Chronic Obstructive Pulmonary No Disease (COPD) Pneumonia No Pulmonary Edema No Pulmonary Embolism No Sleep Apnea No Tuberculosis No Other Respiratory No Diabetes Mellitus Type 1 No Diabetes Mellitus Type 2 No Cirrhosis No Gastroesophageal Reflux No Disease Gastrointestinal Bleeding No Hepatitis No Hiatal Hernia No Obstructive Bowel No Ulcer No Other GI Yes: Colon CA Anemia Yes Osteoarthritis No Other Musculoskeletal No Clostridium Difficile Yes Anesthesia Reactions No Blood Transfusions No Chemotherapy No Malignant Hyperthermia No Other No Depression Yes Substance Use Disorder occasional Endometriosis Yes Now No Surgical History: insertion PowerPort 07/01/2017. Robotic laparoscopic right Hemicolectomy-05/14/17 (Dr. Edwards). Right lumpectomy-1998. Total abdominal hysterectomy with BSO. Forearm/wrist surgery-2002. Colonoscopy-2008, 04/2017. Cystocele and rectocele-2008.. Family History Updates: Father - age 94, CHF, dementia. Mother - age 89, dementia. Paternal Grandfather - pancreatic cancer. - Social History Smoking status: Never smoker second hand exposure: No Substance use type: does not use Alcohol intake frequency: does not drink Housing: house Household members: spouse Current occupational status: retired Does patient use chewing tobacco?: No Current residence: Apartment/Private Home Physical Exam - Limitations Limitations: no limitations - General General appearance: alert, in no apparent distress, cachectic - Normal Exams: Head:: Normocephalic without trauma Eyes:: Pupils are PERRLA w/ EOMI, No scleral icterus, irritation, or foreign bodies noted ENMT:: No facial trauma, nasal exudates, pharyngeal erythema, or exudates are noted Neck:: Full range of motion, without adenopathy Lymphatic:: No lymphadenopathy Musculoskeletal:: No tenderness, or deformity noted Integumentary:: No rashes, hives, or bruising noted Neurological:: Patient is alert, and oriented Psychiatric:: Patient exhibits, appropriate attention Course - Consultations Consultation #1: Hospitalist: Will admit for neutropenic fever. Time: 14:45 Vital Signs Temperature 103.1 F H 11/23/17 13:09 Pulse Rate 109 H 11/23/17 13:09 Respiratory Rate 25 H 11/23/17 13:09 Blood Pressure 115/61 11/23/17 13:09 Pulse Oximetry 98 11/23/17 13:09 Temperature 103.1 F H 11/23/17 13:09 Pulse Rate 97 11/23/17 14:26 Respiratory Rate 20 11/23/17 14:26 Blood Pressure 100/60 11/23/17 14:26 Pulse Oximetry 96 11/23/17 14:26 Weakness - Differential Diagnosis Differential diagnosis: Likely: acute myocardial infarction, anemia, hypoglycemia, rhabdomyolysis, sepsis, dehydration - Medical Records Attestation: I reviewed the patient's medical records. - Lab Data Attestation: I reviewed the patient's lab results. Result diagrams: 11/23/17 13:35 11/23/17 13:45 Lab Results 11/23/17 11/23/17 11/23/17 Range/Units 13:35 13:35 13:45 WBC 1.3 L* (4.5-11.0) T/MM3 RBC 3.55 L (4.00-5.20) M/MM3 Hgb 10.3 L (12-16) GM/DL Hct 32.3 L (36-46) % MCV 91.0 (80-100) UM3 MCH 29.0 (26-34) UUG MCHC 31.9 (31-37) GM/DL RDW Std Deviation 54.0 H (36.9-50.2) FL Plt Count 77 L D (130-400) T/MM3 MPV 9.0 L (9.4-12.4) UM3 Immature Gran % (Auto) Not performed Neut % (Auto) Not performed Lymph % (Auto) Not performed [place] % (Auto) Not performed Eos % (Auto) Not performed Baso % (Auto) Not performed Neut # (Auto) Not performed Lymph # (Auto) Not performed [place] # (Auto) Not performed Eos # (Auto) Not performed Baso # (Auto) Not performed Abs Immat Gran (auto) Not performed Neutrophils % (Manual) 32.0 L (33-66) % Band Neutrophils % 14.0 H (0-6) % Lymphocytes % (Manual) 16.0 L (23-45) % Reactive Lymphs % 2.0 H (0-0) % Monocytes % (Manual) 32.0 H (0-9.0) % Metamyelocytes % 4.0 H (0-0) % Neutrophils # (Manual) 0.4 L (1.8-7.7) T/MM3 Band Neutrophils # 0.2 T/MM3 Lymphocytes # (Manual) 0.2 L (1-4.8) T/MM3 Abs React Lymphs (Man) 0.0 (0-0) T/MM3 Monocytes # (Manual) 0.4 (0-0.8) T/MM3 Metamyelocytes # 0.1 T/MM3 Poikilocytosis 2+ Anisocytosis 1+ Tear Drop Cells 2+ Ovalocytes 1+ Schistocytes 1+ RBC Morph Comment Abnormal Turbidity < 20 (0-20) Sodium 134 (134-144) MEQ/L Potassium 2.7 L* (3.6-5) MEQ/L Chloride 101 (98-107) MEQ/L Carbon Dioxide 21 L (22-30) MEQ/L Anion Gap 12 (5-15) MEQ/L BUN 10.0 (7-17) MG/DL Creatinine 0.8 (0.7-1.2) mg/dL GFR Calculation 70 BUN/Creatinine Ratio 13 (6-26) RATIO Glucose 114 H (65-110) MG/DL Calculated Osmolality 258 L (261-280) MOSM/KG Calcium 8.5 (8.4-10.2) MG/DL Total Bilirubin 1.00 (0.20-1.30) MG/DL Icterus Index < 2 (0-7) AST 24 (14-36) U/L ALT 20 (1-35) U/L Alkaline Phosphatase 99 (38-126) U/L Troponin I < 0.012 (0-0.12) ng/ml NT-Pro-B Natriuret Pep 313 H (0-175) pg/mL Total Protein 6.1 L (6.3-8.2) g/dL Albumin 3.4 L (3.5-5.0) g/dL Globulin 2.7 (2.4-3.6) G/DL Albumin/Globulin Ratio 1.3 (1.1-2.2) RATIO Plasma Lactate 1.3 (0.6-2.2) MMOL/L Specimen Hemolysis < 15 < 15 (0-25) Ur Collection Type Urine Color (YELLOW) Urine Clarity Urine pH (5.0-8.0) Ur Specific [place] (1.015-1.025) Urine Protein (NEGATIVE) Urine Glucose (UA) (NEGATIVE) Urine Ketones (NEGATIVE) Urine Occult Blood (NEGATIVE) Urine Nitrate (NEGATIVE) Urine Bilirubin (NEGATIVE) Urine Urobilinogen (NORMAL) EU/DL Ur Leukocyte Esterase (NEGATIVE) Urinalysis Comment 11/23/17 Range/Units 14:15 WBC (4.5-11.0) T/MM3 RBC (4.00-5.20) M/MM3 Hgb (12-16) GM/DL Hct (36-46) % MCV (80-100) UM3 MCH (26-34) UUG MCHC (31-37) GM/DL RDW Std Deviation (36.9-50.2) FL Plt Count (130-400) T/MM3 MPV (9.4-12.4) UM3 Immature Gran % (Auto) Neut % (Auto) Lymph % (Auto) [place] % (Auto) Eos % (Auto) Baso % (Auto) Neut # (Auto) Lymph # (Auto) [place] # (Auto) Eos # (Auto) Baso # (Auto) Abs Immat Gran (auto) Neutrophils % (Manual) (33-66) % Band Neutrophils % (0-6) % Lymphocytes % (Manual) (23-45) % Reactive Lymphs % (0-0) % Monocytes % (Manual) (0-9.0) % Metamyelocytes % (0-0) % Neutrophils # (Manual) (1.8-7.7) T/MM3 Band Neutrophils # T/MM3 Lymphocytes # (Manual) (1-4.8) T/MM3 Abs React Lymphs (Man) (0-0) T/MM3 Monocytes # (Manual) (0-0.8) T/MM3 Metamyelocytes # T/MM3 Poikilocytosis Anisocytosis Tear Drop Cells Ovalocytes Schistocytes RBC Morph Comment Turbidity (0-20) Sodium (134-144) MEQ/L Potassium (3.6-5) MEQ/L Chloride (98-107) MEQ/L Carbon Dioxide (22-30) MEQ/L Anion Gap (5-15) MEQ/L BUN (7-17) MG/DL Creatinine (0.7-1.2) mg/dL GFR Calculation BUN/Creatinine Ratio (6-26) RATIO Glucose (65-110) MG/DL Calculated Osmolality (261-280) MOSM/KG Calcium (8.4-10.2) MG/DL Total Bilirubin (0.20-1.30) MG/DL Icterus Index (0-7) AST (14-36) U/L ALT (1-35) U/L Alkaline Phosphatase (38-126) U/L Troponin I (0-0.12) ng/ml NT-Pro-B Natriuret Pep (0-175) pg/mL Total Protein (6.3-8.2) g/dL Albumin (3.5-5.0) g/dL Globulin (2.4-3.6) G/DL Albumin/Globulin Ratio (1.1-2.2) RATIO Plasma Lactate (0.6-2.2) MMOL/L Specimen Hemolysis (0-25) Ur Collection Type Urine, void-cc/notcc Urine Color Yellow (YELLOW) Urine Clarity Clear Urine pH 5.5 (5.0-8.0) Ur Specific [place] 1.025 (1.015-1.025) Urine Protein Negative (NEGATIVE) Urine Glucose (UA) Negative (NEGATIVE) Urine Ketones 1+ A (NEGATIVE) Urine Occult Blood Trace-intact (NEGATIVE) Urine Nitrate Negative (NEGATIVE) Urine Bilirubin Negative (NEGATIVE) Urine Urobilinogen 0.2 (NORMAL) EU/DL Ur Leukocyte Esterase Negative (NEGATIVE) Urinalysis Comment Microscopic not ind. - Radiology Data Attestation: I reviewed the patient's radiology results. CXR: Stable chest. No acute CT pathology. - EKG Data EKG #1 EKG attestation: Yes: I reviewed and interpreted this EKG. EKG shows normal: sinus rhythm, axis Rate: tachycardia [place]/QRS: RBBB (Conduction delay) Interpretation: nonspecific ST-T wave changes Disposition Clinical Impression: Neutropenic fever Disposition: 02 [place] [facility] Print Language: Serbian Condition: Improved Prescriptions: No Action Estradiol Patch [Climara Patch] 1 patch TOP Q7D LORazepam [Lorazepam] 1 mg PO TID PRN PRN Reason: Prn Orders Atenolol [Tenormin] 25 mg PO DAILY PRN PRN Reason: Prn Orders Ondansetron HCl [Ondansetron HCl] 8 mg PO TID PRN PRN Reason: Nausea &/Or Vomiting Cholecalciferol (Vitamin D3) [Vitamin D3] 5,000 unit PO DAILY Mupirocin Ointment [Bactroban Ointmment] 1 applicatio TOP PRN PRN PRN Reason: Prn Orders Referrals: Adele Voss MD [Family Provider] - Time of Disposition: 15:10 - Seen By: physician
[2017-11-23] MEDS: SALINE FLUSH 10ml SYRINGE IVF PRN ×2 (13:41→17:54)
[2017-11-23] MEDS ORDERED: ACETAMINOPHEN 325 MG TABLET PO ONE (14:51)
--- NOTE | 2017-11-23 17:04 | History & Physical Report ---
History of Present Illness Date: 11/23/17 Chief complaint: Extreme weakness HPI: Dominga Otero is a 72 y/o woman with a history of colon cancer managed by Dr. Miguel Ángel Mota. Cancer was diagnosed in April 2017 and she underwent hemicolectomy and started chemotherapy in June,. She gets chemo every other Saturday, and is due for her next session on 11/27/17 (she cannot recall the name of her chemo). She has had problems with low WBC and has been receiving G-CSF routinely but has not required blood transfusions. She had G-CSF on 11/20, 11/21, and 11/22. She typically gets very tired and fatigued with G-CSF, but tries to stay as active as possible when able. For example, about a week ago she was trying to redecorate her kitchen, and as she tried to step up on a chair, the chair slid out and she abraded her right curry. She saw her PCP and it did not look infected. She was Rx mupirocin ointment on 11/18/17 and she also had leftover Amoxicillin which she took for about 2 days. However, she developed new symptoms of profuse diarrhea on 11/20 and 11/21. She went frequently but doesn 't think it exceeded 10 epsidoes of diarrhea. She denies seeing any blood in her stool. She has also had some nausea and abdominal cramping along with the diarrhea. She hasn't been eating well, but thought she was keeping up with fluids until 11/22, when she felt too awful to push fluids. She knows she's lost weight overall since being diagnosed with cancer, and [facility] records show that in December of 2016 she weighed 136 lbs and at her last visit she was 120 lbs. Besides the GI illness and leg injury, she denies fever or chills, cough/ congestion/sinus drainage, sore throat, or dysuria. She denies SOA or chest pain or palpitations. She denies headaches, visual changes, unilateral weakness or dysphagia. She has chronic paresthesias to both feet which she attributes to chemotherapy. She tends to bruise easily and can't quite explain the many purpuric lesions to her hands/forearms. She denies dizziness, just extreme fatigue. On 11/23/17, she spilled water on herself and tried to get up to clean up. However, she ended up falling and was too weak to right herself. Her daughter (Beatris) and (Jesus) had to help her to her feet. Beatris noticed confusion at that time as well. They called 911 and she was transported to the ED. On arrival, her BP was initially stable at 115/61, but then trended down to 86/52. In all, she received 2L of NS, and her BP improved. She does have a history of low-normal BP, and per [facility] records her BP ranged from 92/62 to 118 /78 throughout 2017. She states that the last time she checked it the systolic number was 105. She was febrile at 103.1, tachycardic at 109, and tachypneic at 25. She was maintaining saturations on room air. Labs showed a low WBC of 1.3 with 14% bands; low hgb was 10.3 and platelets were low at 77. On chemistries, her K was only 2.7 and she was given oral KDur 40 mEq. UA was negative for UTI and CXR did not show pneumonia. She was given cefepime in the ED and she also received Tylenol for her fever. Dr. Coats was notified, and the patient was admitted to inpatient status for fever of unknown origin, hypotension, r/o severe sepsis, pancytopenia, and hypokalemia. LOS is expected to exceed 2 overnights. Past Medical History Adenocarcinoma of ascending colon, stage IIIB; neutropenia; on chemotherapy since June, History of C. difficile in 2016 Osteoporosis Fibrocystic breast disease OA - hands MVP with occasional palpitations IBS Left endolymphatic hydrops, tinnitus, Mnire's disease, cochleovestibular ( [address] Newman) Measles, mumps, and chickenpox as child Surgical History: insertion PowerPort 07/01/2017. Robotic laparoscopic right Hemicolectomy-05/14/17 (Dr. Edwards). Colonoscopy-05/02/17 (Dr. Lorenzana). Basal cell carcinoma removed from left cheek-01/24 (Dr. Nielsen @ Dr. Apodaca's office). Right lumpectomy-1998. Total abdominal hysterectomy with BSO (age 41) . ORIF right wrist-2002. Colonoscopy-2008, 04/2017. Cystocele and rectocele- 2008. Family History: Per [facility] records: Father had dementia, CHF, PVD, chronic bronchitis Mother had heart disease PGM had dementia PGF had heart disease and pancreatic cancer MGM had dementia Family History Updates: Patient and spouse report that her parents of old age. She has a younger brother who is healthy. - Social History Smoking status: Never smoker Substance use type: does not use Alcohol intake frequency: holidays/special occasions only Housing: house Household members: spouse (Jesus) Current occupational status: employed, retired (retail and restaurant associate) Current occupation: [employer] Social history: PCP - Dr. Voss Onc - Dr. Mota Medications Home Medications Medication Instructions Recorded Confirmed Type Estradiol Patch [Climara Patch] 1 patch TOP Q7D 05/01/17 11/23/17 History LORazepam [Lorazepam] 1 mg PO TID PRN 05/01/17 11/23/17 History Atenolol [Tenormin] 25 mg PO DAILY PRN 05/02/17 11/23/17 History Cholecalciferol (Vitamin D3) 5,000 unit PO DAILY 05/10/17 11/23/17 History [Vitamin D3] Mupirocin Ointment [Bactroban 1 applicatio TOP PRN PRN 11/23/17 11/23/17 History Ointmment] Ondansetron HCl [Ondansetron HCl] 8 mg PO TID PRN 11/23/17 11/23/17 History Allergies Allergy/AdvReac Type Severity Reaction Status Date / Time bismuth subgallate Allergy Intermediate Hives Verified 11/23/17 13:59 hydrocortisone Allergy Intermediate HIVES Verified 11/23/17 13:59 resorcinol Allergy Intermediate HIVES Verified 11/23/17 13:59 telithromycin Allergy Intermediate NAUSEA Verified 11/23/17 13:59 zinc oxide Allergy Intermediate HIVES Verified 11/23/17 13:59 Sulfa (Sulfonamide Allergy Unknown Verified 11/23/17 13:59 Antibiotics) Exam Vital Signs: Temperature 103.1 F H 11/23/17 13:09 Pulse Rate 90 11/23/17 16:21 Respiratory Rate 18 11/23/17 16:21 Blood Pressure 105/62 11/23/17 16:21 Pulse Oximetry 98 11/23/17 16:00 Telemetry Rhythm: Sinus Rhythm Telemetry Ectopy: PAC Height/Weight/BMI: Height 1.63 m Weight 51.9 kg Body Mass Index 19.6 - Constitutional Present: no acute distress, well nourished, well developed, thin - Routine HEENT Exam Head: Present: normocephalic Eye: Present: PERRL. Absent: conjunctival icterus, scleral injection ENT: Present: mucous membranes moist, oropharynx clear - Routine Neck Exam Absent: JVD, lymphadenopathy - Routine Respiratory Exam Present: CTA bilaterally - Routine Cardiovascular Exam Present: RRR, S1, S2 - Routine Abdominal Exam Present: soft, non distended, non tender. Absent: normoactive bowel sounds ( hypoactive) - Routine Extremities Exam Present: no edema, pulses intact, normal capillary refill (brisk) - Routine Skin Exam Present: intact, dry, warm Comments: purpuric lesions to both hands/forearms and another lesion to her left orbit - Routine Neurological Exam Present: alert, oriented X3, CN II-XII intact, normal speech. Absent: vision grossly intact, hearing grossly intact - Routine Psychiatric Exam Present: normal affect, normal thought process, cooperative Results - Labs CBC & Chem 7: 11/23/17 13:35 11/23/17 17:47 Assessment and Plan Assessment and Plan: Admission diagnoses R/O severe sepsis with fever of unknown origin, tachycardia, leukopenia, bandemia, tachypnea with hypotension hypotension - BP responded to 38 mL/kg fluid bolus (2L) hypokalemia pancytopenia diarrhea encephalopathy - improved with IVF Right leg injury, treated with mupirocin ointment and incompletely with Amox Chronic and associated conditions Adenocarcinoma of ascending colon, stage IIIB; neutropenia; on chemotherapy since June, History of C. difficile in 2017 History of low-normal blood pressures (92/62 to 118/78 throughout 2017) MVP with occasional palpitations IBS Plan Admit to CCU. While BP has responded to IVF, she is at high risk for refractory hypotension d/t possible underlying sepsis. Hold atenolol for now. Continue IVF. Antibiotics: Cefepime and Vancomycin. Follow blood cultures and check viral respiratory panel. Monitor tele d/t hypokalemia. Will give KCL IV bolus. Check magnesium level. Diarrhea: check GI panel. Start metronidazole with history of C. difficile. Start Culturelle. Pancytopenia: transfuse if necessary; check iron studies; per Dr. Mota's notes give platelets if they drop to 10 or below. Zofran PRN nausea. Start clear liquid diet and advance as tolerated. With weight loss/poor oral intake, check prealbumin and vitamin B12. Monitor wound to right leg - no clear evidence of active infection. Advanced directives: Jesus (Spouse) is DPOA. She would want all measures taken to prolong her life (intubation, prolonged mechanical ventilation, PEG tube, full code). Family was included on this discussion. Pt critically ill. >70 minutes was spent at bedside, with family, reviewing outside records, and determining plan of care. Discussed with nursing staff, Dr. Rivera, and Dr. Coats. 11/23/2017-6:35 PM-I reviewed this chart, the patient history, and the LEARNING PROGRAM MANAGER's/PA 's documented findings as above. We discussed and formulated the assessment and plan as above with the additions below.-Dr. Coats Patient was seen earlier this evening in CCU accompanied by her and daughter. She stated she was feeling better than she did this morning. She feels like she has more energy. She states that 2 days ago she started having frequent diarrheal stools. Prior to that time she had started having some abdominal cramping off and on. She does have history of C. difficile back in the fall of 2017 treated with Flagyl. She has had no recurrences. After having diarrhea this week, she did take Lomotil and has not had any more stools. This morning she was noted to be very weak and a little confused. 911 was called and she was brought into the emergency room and had a fever 103. She had not felt feverish. She has not had any chills or sweats. She denies any sinus congestion , rhinorrhea, sore throat, headache, neck pain or cough. She denies any chest pain. She's had no nausea or vomiting. She denies any dysuria. She did fall about a week and a half ago and got an abrasion on her right anterior curry. She took amoxicillin for a few days. The area is not painful. There was never any drainage or surrounding erythema. She has a Port-A-Cath which has been working well and is not erythematous or painful. She denies feeling confused at this time. She has been on 3 days of G-CSF, last dose yesterday On exam she is alert and oriented 3 and in no acute distress. She is a good historian. HEENT reveals sclerae to be anicteric and pupils are equal. Oropharynx is moist. Neck is supple with good range of motion. There is no lymphadenopathy. Chest is clear to auscultation. She has a PowerPort in the right upper chest which is accessed. There is no surrounding erythema. Cardiovascular reveals a regular rate and rhythm with an occasional ectopic beat. On telemetry and appear she's having an occasional PAC. Abdomen is soft and nontender with positive bowel sounds. She does have some discomfort with palpation over the bladder but she states she feels like she just has to go to the bathroom. Extremities are free of clubbing cyanosis or edema. She does have a small abrasion which is scabbed over on her right anterior curry. There is no surrounding erythema or signs of drainage. It does not appear infected. Chest x-ray on my read is clear Urinalysis is normal other than +1 ketones. Viral respiratory panel is pending White count is 1.3 with neutrophil count of 0.4 and bands of 0.2 Platelets are 77 which is low for her Hemoglobin is 10.3 which is stable Initial potassium was 2.7 and she received 40 of oral potassium and it is now 3.0. Magnesium is low at 1.5. Phosphorus is low at 2.1. Calcium is borderline low at 7.4 but albumin is 2.6. Carbon dioxide was 21 on admission and is 18 now Troponin was negative on admission. Lactate was normal on admission at 1.3 and on recheck is 1.0 Impression Febrile neutropenia Severe sepsis Source of infection is unknown. With recent diarrhea and history of C. difficile there is concern for recurrent C. difficile Generalized weakness Hypokalemia Hypomagnesemia Hypophosphatemia Mild metabolic acidosis Thrombocytopenia, new onset Plan The patient was given cefepime in the emergency room. We'll give vancomycin and Flagyl as well. Check stool for C. difficile Await blood culture results Continue IV fluids, hypotension has resolved with bolus IV fluids Replace potassium IV. Replace magnesium IV. Replace phosphorus orally. Change IV fluids to half-normal saline with one amp of bicarbonate Recheck renal panel, magnesium, CBC tomorrow Discussed with oncologist classification analyst for Dr. Mota and will give Granix 300 subcutaneous once daily starting today. He expects white count should improve by Saturday or Saturday. SCDs for DVT prophylaxis DVT Prophylaxis: SCD's Resuscitation Status: Full Code - Time spent with patient Time with patient PN: 70 minutes - Physician Narrative Physician: Quin Coats MD Narrative: Date: 11/23/17 Time: 1700 Hospital Course Summary Disclaimer: The visit summary below is not to be considered part of the above Progress Note. Hospital Course: 11/23 Admit to CCU. While BP has responded to IVF, she is at high risk for refractory hypotension d/t possible underlying sepsis. Hold atenolol for now. Continue IVF. Antibiotics: Cefepime and Vancomycin. Follow blood cultures and check viral respiratory panel. Monitor tele d/t hypokalemia. Will give KCL IV bolus. Check magnesium level. Diarrhea: check GI panel. Start metronidazole with history of C. difficile. Start Culturelle. Pancytopenia: transfuse if necessary; check iron studies; per Dr. Mota's notes give platelets if they drop to 10 or below. Zofran PRN nausea. Start clear liquid diet and advance as tolerated. With weight loss/poor oral intake, check prealbumin and vitamin B12. Monitor wound to right leg - no clear evidence of active infection. Advanced directives: Jesus (Spouse) is DPOA. She would want all measures taken to prolong her life (intubation, prolonged mechanical ventilation, PEG tube, full code). Family was included on this discussion.
[2017-11-23] MEDS ORDERED: POTASSIUM CHLORIDE INJ 20 MEQ in NS 1,000 ML IV SCH (17:30)
[2017-11-23] MEDS: MetroNIDAZOLE PB 500 MG/100 ML BAG IV SCH (17:51)
[2017-11-23] MEDS ORDERED: VANCOMYCIN - PHARMACY CONSULT MC ONE (18:04)
[2017-11-23] MEDS: LIDOCAINE 1% INJ 10 MG, POTASSIUM CHLORIDE INJ 10 MEQ in NS 100 ML IV SCH ×4 (19:21→22:52)
[2017-11-23] MEDS: LACTOBACILLUS (15B cfu) CAPSULE PO SCH (19:29)
[2017-11-23] MEDS: MAGNESIUM SULFATE 1gm PREMIX 1 GM/100 ML BAG IV SCH ×2 (20:19→21:41)
[2017-11-23] MEDS: PHOSPHORUS 250 MG TABLET PO SCH ×2 (20:23→20:43)
[2017-11-23] MEDS ORDERED: FALL RISK - PHARMACY CONSULT MC ONE (20:24)
[2017-11-23] MEDS: LORazepam 1 MG TABLET PO PRN (21:35)
[2017-11-23] MEDS: SODIUM BICARBONATE 75 MEQ in 1/2 NS 1,000 ML IV SCH (22:17)
[2017-11-24] MEDS: ACETAMINOPHEN 650 MG/20.3 ML SOLUTION PO PRN ×3 (00:01→17:37)
[2017-11-24] MEDS: MetroNIDAZOLE PB 500 MG/100 ML BAG IV SCH ×3 (02:30→16:56)
--- NOTE | 2017-11-24 09:07 | Progress Note ---
- Date 11/24/17 Subjective: Dominga states she is feeling better today. She feels like she has more energy. She denies any pain anywhere other than some gas pain in her abdomen which resolved after having flatus. She has not had any bowel movements or diarrhea since admission. She denies any nausea. She denies any cough, congestion or shortness of breath. She still feels pretty weak but better than yesterday. She had urinary retention overnight and a Monroe catheter was placed. She has had good urine output post Monroe catheter placement. She did have blood pressures down into the 80s systolic overnight, but her baseline blood pressure is high 90s low 100s. She continues to be neutropenic precautions. Objective Vital signs: Temperature 98.1 F 11/24/17 04:07 Pulse Rate 83 11/24/17 04:00 Respiratory Rate 23 11/24/17 03:00 Blood Pressure 87/50 11/24/17 03:00 Pulse Oximetry 98 11/24/17 03:00 Height/Weight/BMI: Height 1.63 m Weight 51.9 kg Body Mass Index 19.6 Comments: Current temperature 90.8, MAXIMUM TEMPERATURE 103.1, blood pressure 101/59, O2 sat are percent on room air, heart rate 84, respirations 23 I&O cumulative 4107/1455 GEN-alert, oriented, no acute distress HEENT-oropharynx is mildly dry NECK-supple CV-regular rate and rhythm CHEST-clear to auscultation bilaterally. Port-A-Cath is accessed and surrounding skin appears normal ABD-soft, nondistended, nontender with positive bowel sounds -Monroe in place with good urine output EXT-no edema, scab has fallen off of her lesion on her right anterior curry, no surrounding erythema. Only some minimal serosanguineous drainage on the SCD NEURO-generalized weakness, no focal deficits SKIN-arm and dry, no rashes, right anterior curry abrasion looks fine without signs of infection Results - Labs CBC & Chem 7: 11/24/17 04:11 11/24/17 04:11 Labs: ANC is 0.4 band count is 0.3 Protocol since morning is 4.37. Lactate was normal 2 yesterday. Blood cultures are pending. Viral respiratory panel is negative. GI panel has not been obtained yet since the patient has not had a bowel movement Magnesium is 2.3. Phosphorus is 2.4 B 12 is pending - Impressions Chest x-ray from today on my read appears clear. Radiologist interpretation is pending Assessment and Plan Assessment and Plan: Chronic and associated conditions Adenocarcinoma of ascending colon, stage IIIB; neutropenia; on chemotherapy since June, History of C. difficile in 2017 History of low-normal blood pressures (92/62 to 118/78 throughout 2017) MVP with occasional palpitations IBS Acute conditions Febrile neutropenia Severe sepsis Source of infection is unknown. With recent diarrhea and history of C. difficile there is concern for recurrent C. difficile Generalized weakness Hypokalemia-improved Hypomagnesemia-resolved Hypophosphatemia-improved Mild metabolic acidosis-stable Thrombocytopenia, new onset-improved Pancytopenia Worsening anemia-monitor closely Encephalopathy-resolved Mild right leg injury with abrasion and no signs of infection Plan Overall, the patient is doing better today. Blood pressure has improved. Urine output is good. Generalized weakness is a little better. Source of infection is still unknown. Cultures are pending. Continue to monitor closely in CCU today. Change IV fluids to D5W with 3 A of bicarbonate to run at 75 an hour Continue IV cefepime, Vanco, metronidazole for febrile neutropenia with history of C. difficile. Await GI panel. Replace potassium orally Continue to replace phosphorus orally Continue supplement shakes for nutrition Continue Granix daily until ANC is greater than 1.5 Greater than 40 minutes of time spent seeing and evaluating the patient. She still critically ill with neutropenic fever. DVT Prophylaxis: SCD's Resuscitation Status: Full Code - Time spent with patient Time with patient PN: 35 minutes - Physician Narrative Physician: Quin Coats MD Narrative: Date: 11/24/17 Time: 0900 Hospital Course Summary Disclaimer: The visit summary below is not to be considered part of the above Progress Note. Hospital Course: 11/23 Admit to CCU. While BP has responded to IVF, she is at high risk for refractory hypotension d/t possible underlying sepsis. Hold atenolol for now. Continue IVF. Antibiotics: Cefepime and Vancomycin. Follow blood cultures and check viral respiratory panel. Monitor tele d/t hypokalemia. Will give KCL IV bolus. Check magnesium level. Diarrhea: check GI panel. Start metronidazole with history of C. difficile. Start Culturelle. Pancytopenia: transfuse if necessary; check iron studies; per Dr. Mota's notes give platelets if they drop to 10 or below. Zofran PRN nausea. Start clear liquid diet and advance as tolerated. With weight loss/poor oral intake, check prealbumin and vitamin B12. Monitor wound to right leg - no clear evidence of active infection. Advanced directives: Jesus (Spouse) is DPOA. She would want all measures taken to prolong her life (intubation, prolonged mechanical ventilation, PEG tube, full code). Family was included on this discussion. Impression Febrile neutropenia Severe sepsis Source of infection is unknown. With recent diarrhea and history of C. difficile there is concern for recurrent C. difficile Generalized weakness Hypokalemia Hypomagnesemia Hypophosphatemia Mild metabolic acidosis Thrombocytopenia, new onset Plan The patient was given cefepime in the emergency room. We'll give vancomycin and Flagyl as well. Check stool for C. difficile Await blood culture results Continue IV fluids, hypotension has resolved with bolus IV fluids Replace potassium IV. Replace magnesium IV. Replace phosphorus orally. Change IV fluids to half-normal saline with one amp of bicarbonate Recheck renal panel, magnesium, CBC tomorrow Discussed with oncologist production expediter for Dr. Mota and will give Granix 300 subcutaneous once daily starting today. He expects white count should improve by Saturday or Saturday. SCDs for DVT prophylaxis
[2017-11-24] MEDS ORDERED: SODIUM BICARBONATE 150 MEQ in D5W 1,000 ML IV SCH ×2 (09:30→17:45)
[2017-11-24] MEDS: LACTOBACILLUS (15B cfu) CAPSULE PO SCH ×3 (09:37→16:59)
[2017-11-24] MEDS: PHOSPHORUS 250 MG TABLET PO SCH ×4 (09:37→20:59)
--- NOTE | 2017-11-24 11:51 | XRay Report ---
Indication: Weakness PROCEDURE: XR chest 1V: Encounter: Initial Comparison: July 01, 2017 FINDINGS: The lungs are clear. There is no abnormal airspace opacity, pleural effusion or pneumothorax identified. The heart size, pulmonary vasculature and mediastinum are within normal limits. Overlying monitoring leads. Right IJ port. No significant skeletal abnormality is seen. IMPRESSION: No acute cardiopulmonary abnormality. .
--- NOTE | 2017-11-24 12:44 | Pharmacy Consult-Antibiotics ---
Pharmacy Consult-Vancomycin - Laboratory Information WBC 1.7 T/MM3 (4.5-11.0) L* 11/24/17 04:11 BUN 11.0 MG/DL (7-17) 11/24/17 04:11 Creatinine 0.7 mg/dL (0.7-1.2) 11/24/17 04:11 Procalcitonin 4.37 NG/ML H* 11/24/17 04:11 - Consult Information VANCOMYCIN CONSULT: Patient is a 72 yo female who has Adenocarcinoma of ascending colon, stage IIIB ; neutropenia; on chemotherapy since June,. Will R/O severe sepsis with fever of unknown origin, tachycardia, leukopenia, bandemia, tachypnea with hypotension. S Cr = 0.8 mg/dL Calculated Cr Cl = 42 mL/min WBC's = 1.7 T/mm3 24-hr Tmax = 103.1 degrees F I bolused with 1,500 mg of Vancomycin last night @ 2330 (11/23). I will continue with Vancomycin 1,500 mg IV q18hrs. The pharmacy will continue to monitor and adjust regimen to maintain therapeutic levels. Thank you for the Vancomycin Dosing Protocol, Branden Vazquez, Pharmacist.
--- NOTE | 2017-11-24 13:06 | XRay Report ---
Indication: severe sepsis PROCEDURE: XR chest 1V: Encounter: Initial Comparison: Chest x-ray dated November 23, 2017 Findings: The lungs are stable in appearance without new focal airspace consolidation. There is no pleural effusion or pneumothorax. The heart size, pulmonary vascularity and mediastinal contours are unchanged. Right IJ port. IMPRESSION: Stable appearance of the chest without acute cardiopulmonary disease. .
[2017-11-24] MEDS: SODIUM BICARBONATE 75 MEQ in 1/2 NS 1,000 ML IV SCH (15:03)
[2017-11-24] MEDS: LORazepam 1 MG TABLET PO PRN (17:04)
[2017-11-24] MEDS ORDERED: LEVOFLOXACIN PB 750 MG/150 ML BAG IV SCH (20:00)
[2017-11-25] MEDS: MetroNIDAZOLE PB 500 MG/100 ML BAG IV SCH ×3 (02:22→17:21)
[2017-11-25] MEDS ORDERED: POTASSIUM CHLORIDE PREMIX 10 MEQ/100 ML BAG IV ONE (04:54)
[2017-11-25] MEDS: POTASSIUM CHLORIDE PREMIX 10 MEQ/100 ML BAG IV SCH ×6 (05:22→21:20)
[2017-11-25] MEDS: LACTOBACILLUS (15B cfu) CAPSULE PO SCH ×3 (08:09→17:20)
[2017-11-25] MEDS: PHOSPHORUS 250 MG TABLET PO SCH ×4 (08:09→21:14)
[2017-11-25] MEDS ORDERED: CEFEPIME 1 GM IV SCH (09:00)
--- NOTE | 2017-11-25 09:00 | Progress Note ---
- Date 11/25/17 Subjective: The pt was seen by me at 9 am in ICU. She reports that her biggest issue is continuous diarrhea- she reports over 20 stools in the last 24 hours. She denies any nausea, vomiting or blood in her stools. She has had 2 negative C dif toxins since admission. She did have C dif colitis in Jun 2017. During the night, she required IV K+ boluses as well as a 40 meq po dose. She is on IV Na bicarb replacement at 50 cc/hr. She slept well during the night. She notes her BP at home usually is in the 100 systolic range- it's been lower the last 24 hrs. 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 She is unable to tolerate cold-including food. She denies headache, cough or sputum production. She had a ochoa placed secondary to urinary retention. Objective Vital signs: Temperature 99 F 11/25/17 08:00 Pulse Rate 86 11/25/17 08:15 Respiratory Rate 21 11/25/17 08:15 Blood Pressure 87/49 11/25/17 08:00 Pulse Oximetry 99 11/25/17 08:15 Height/Weight/BMI: Height 5 ft 4 in Weight 123 lb 7.342 oz Body Mass Index 19.6 - Constitutional Present: no acute distress, cooperative - Routine HEENT Exam ENT: Present: mucous membranes moist, oropharynx clear, dentition normal - Routine Respiratory Exam Present: CTA bilaterally - Routine Cardiovascular Exam Present: RRR, no murmur - Routine Abdominal Exam Present: soft Comments: hyperactive bowel sounds, no rebound, no guarding, small reducible left sided fullness (? hernia) - Routine Exam Comments: ochoa in place - Routine Extremities Exam Present: no edema, non tender, pulses intact Comments: small abrasion on lower curry with serous drainage, no erythema, no fluctuance, nontender - Routine Musculoskeletal Exam Musculoskeletal: Present: no clubbing or cyanosis, no tenderness, no erythema, moving extremities well - Routine Skin Exam Present: intact Comments: no rash - Routine Neurological Exam Present: alert, oriented X3 - Routine Psychiatric Exam Present: normal affect, normal thought process - Additional findings Additional findings: R chest portacath accessed without surrounding erythema or fullness Results - Labs CBC & Chem 7: 11/25/17 03:51 11/25/17 03:52 Labs: Microbiology 11/23/17 13:40 Peripheral/Iv Start Blood Culture - Preliminary No Growth After 1 Day 11/23/17 13:35 Port/Picc Blood Culture - Preliminary No Growth After 1 Day Laboratory Tests 11/23/17 11/24/17 11/24/17 17:30 10:28 17:36 Stl Cyclospora species Negative Stool Rotavirus A PCR Negative Stool Adenovirus (PCR) Negative Stool Astrovirus (PCR) Negative Stool Campylobacter PCR Negative Stl C.difficile Tox PCR Negative Negative Stool Cryptosporidium PCR Negative Stl E.coli Shiga Toxins Negative Stl Enterotoxigenic E PCR Negative Stool EPEC (PCR) Negative Stool EAEC (PCR) Negative Stool Entamoeba (PCR) Negative Stool Giardia Lamblia PCR Negative Stool Salmonella PCR Negative Stool Sapovirus (PCR) Negative Stl P. shigelloides PCR Negative Stl Shigella/EIEC PCR Negative St Y.enterocolitica PCR Negative Stool Vibrio (PCR) Negative Stl Vibrio cholera PCR Negative Stl Norovirus GI/GII PCR Negative Adenovirus (PCR) Negative B.parapertussis DNA PCR Negative C. pneumoniae DNA (PCR) Negative Coronavirus OC43 (PCR) Negative Coronavirus HKU1 (PCR) Negative Coronavirus 229E (PCR) Negative Coronavirus NL63 (PCR) Negative Human Metapneumovir PCR Negative Influenza Type A (PCR) Negative Influenza Type B (PCR) Negative M. pneumoniae (PCR) Negative Parainfluenza 1 (PCR) Negative Parainfluenza 2 (PCR) Negative Parainfluenza 3 (PCR) Negative Parainfluenza 4 (PCR) Negative RSV (PCR) Negative Entero/Rhino (PCR) Negative Laboratory Tests 11/23/17 11/23/17 11/24/17 17:47 17:47 04:11 Phosphorus 2.1 L 2.4 L Magnesium 1.5 L 2.3 D 11/25/17 11/25/17 03:52 03:52 Phosphorus 2.0 L Magnesium 1.8 D Microbiology Results: Microbiology 11/23/17 13:40 Peripheral/Iv Start Blood Culture - Preliminary No Growth After 1 Day 11/23/17 13:35 Port/Picc Blood Culture - Preliminary No Growth After 1 Day Assessment and Plan Assessment and Plan: Chronic and associated conditions Adenocarcinoma of ascending colon, stage IIIB; neutropenia; on chemotherapy since June, History of C. difficile in 2017 History of low-normal blood pressures (92/62 to 118/78 throughout 2017) MVP with occasional palpitations IBS Acute conditions Febrile neutropenia- WBC 2,000 today Severe sepsis-BC Source of infection is unknown. Recent diarrhea and history of C. difficile, no signs recurrent C. difficile Generalized weakness Hypokalemia Hypomagnesemia Hypophosphatemia Mild metabolic acidosis-improved Thrombocytopenia, new onset-stable Pancytopenia Worsening anemia-monitor closely Encephalopathy-resolved Mild right leg injury with abrasion and no signs of infection- need to watch closely as WBCs improve Plan Overall, the patient is stable. Electrolyte imbalances probably related to profues diarrhea. Blood pressure remains low. Urine output is good. Generalized weakness is a little better. Source of infection is still unknown. Blood cultures negative thus far. Continue to monitor closely in CCU Change IV fluids to D5NS with 40 meq KCL at 100 cc an hour, will have nursing recheck weight Reorder IV cefepime, continue Vanco (Pharmacy adjusting dose), metronidazole for febrile neutropenia. Would not continue levofloxacin secondaray to increased risk of C dif Replaced potassium with IV and oral doses, will recheck K+ level Continue to replace phosphorus orally Replace Mg with IV boluses Continue supplement shakes for nutrition, consult dietitian to help her increase her protein intake Continue Granix daily until ANC is greater than 1.5 Discussed with her family, questions answered. Reviewed meds with pharm, discussed with nursing Greater than 45 minutes of time spent seeing and evaluating the patient. She still critically ill with neutropenic fever. - Physician Narrative Narrative: Date: 11/25/17 Time: 0857 Hospital Course Summary Disclaimer: The visit summary below is not to be considered part of the above Progress Note. Hospital Course: 11/23 Admit to CCU. While BP has responded to IVF, she is at high risk for refractory hypotension d/t possible underlying sepsis. Hold atenolol for now. Continue IVF. Antibiotics: Cefepime and Vancomycin. Follow blood cultures and check viral respiratory panel. Monitor tele d/t hypokalemia. Will give KCL IV bolus. Check magnesium level. Diarrhea: check GI panel. Start metronidazole with history of C. difficile. Start Culturelle. Pancytopenia: transfuse if necessary; check iron studies; per Dr. Mota's notes give platelets if they drop to 10 or below. Zofran PRN nausea. Start clear liquid diet and advance as tolerated. With weight loss/poor oral intake, check prealbumin and vitamin B12. Monitor wound to right leg - no clear evidence of active infection. Advanced directives: Jesus (Spouse) is DPOA. She would want all measures taken to prolong her life (intubation, prolonged mechanical ventilation, PEG tube, full code). Family was included on this discussion. Impression Febrile neutropenia Severe sepsis Source of infection is unknown. With recent diarrhea and history of C. difficile there is concern for recurrent C. difficile Generalized weakness Hypokalemia Hypomagnesemia Hypophosphatemia Mild metabolic acidosis Thrombocytopenia, new onset Plan The patient was given cefepime in the emergency room. We'll give vancomycin and Flagyl as well. Check stool for C. difficile Await blood culture results Continue IV fluids, hypotension has resolved with bolus IV fluids Replace potassium IV. Replace magnesium IV. Replace phosphorus orally. Change IV fluids to half-normal saline with one amp of bicarbonate Recheck renal panel, magnesium, CBC tomorrow Discussed with oncologist front end architect for Dr. Mota and will give Granix 300 subcutaneous once daily starting today. He expects white count should improve by Saturday or Saturday. SCDs for DVT prophylaxis
[2017-11-25] MEDS ORDERED: LOPERAMIDE 2 MG CAPSULE PO ONE ×3 (10:09→17:53)
[2017-11-25] MEDS: CEFEPIME 1 GM in NS 50 ML IV SCH ×3 (10:36→21:19)
[2017-11-25] MEDS: MAGNESIUM SULFATE 1gm PREMIX 1 GM/100 ML BAG IV SCH ×2 (10:45→12:30)
[2017-11-25] MEDS: POTASSIUM CHLORIDE IV SCH ×2 (12:58→22:52)
[2017-11-25] MEDS: D5NS IV SCH ×2 (12:58→22:52)
[2017-11-25 17:33] VITALS: BMI 21.6
[2017-11-25] MEDS ORDERED: NS 1,000 ML IV ONE (17:40)
[2017-11-25] MEDS ORDERED: CALCIUM GLUCONATE 1,000 MG in NS 100 ML IV ONE (18:00)
[2017-11-25] MEDS ORDERED: CALCIUM GLUCONATE 1,000 MG in NS 50 ML IV ONE (18:15)
[2017-11-25] MEDS: LORazepam 1 MG TABLET PO PRN (22:40)
[2017-11-26] MEDS: ONDANSETRON 4 MG/2 ML INJECTION IVP PRN (00:19)
[2017-11-26] MEDS: MetroNIDAZOLE PB 500 MG/100 ML BAG IV SCH ×2 (02:18→10:00)
[2017-11-26] MEDS: CEFEPIME 1 GM in NS 50 ML IV SCH ×3 (04:12→14:16)
[2017-11-26] MEDS: POTASSIUM CHLORIDE IV SCH ×2 (08:39→23:04)
[2017-11-26] MEDS: D5NS IV SCH ×2 (08:39→23:04)
[2017-11-26] MEDS: LACTOBACILLUS (15B cfu) CAPSULE PO SCH ×3 (09:00→17:47)
[2017-11-26] MEDS: PHOSPHORUS 250 MG TABLET PO SCH ×4 (09:00→21:23)
[2017-11-26] MEDS ORDERED: LOPERAMIDE 2 MG CAPSULE PO ONE (13:12)
[2017-11-26] MEDS ORDERED: CALCIUM GLUCONATE 2,000 MG in NS 100 ML IV ONE (14:30)
--- NOTE | 2017-11-26 15:03 | Progress Note ---
- Date 11/26/17 The patient was seen by me in ICU at about 2 PM. She reports she has been doing well. She was up in a chair earlier today. She does feel somewhat weak with movement, she denies any lightheadedness or dizziness. She has not been seen by physical therapy. She continues to have diarrhea, although only 4-5 stools perhaps today and 4-5 last night which is an improvement from yesterday. She does report that the Imodium is helping. She has no nausea, although she was given a dose of Zofran during the night,, no vomiting, no blood in her stools. She does complain of a sore on her left lateral tongue that she associates with her chemotherapy. She has remained afebrile. She denies cough, no sputum production, no chest pain. She continues to have a Monroe catheter in place secondary to urinary retention. The nurses will start doing bladder training this afternoon. Her blood pressure is better this afternoon, she remains on IV fluids with 40 mEq of potassium supplement. Objective Vital signs: Temperature 96.8 F 11/26/17 08:00 Pulse Rate 71 11/26/17 12:00 Respiratory Rate 21 11/26/17 12:00 Blood Pressure 102/64 11/26/17 12:00 Pulse Oximetry 100 11/26/17 12:00 In general, the patient is alert and oriented 3, cooperative with exam, and in no respiratory distress. HEENT: Head is atraumatic, normocephalic, no conjunctival petechiae, no oral thrush, mucous membranes slightly dry, with a small ulcer on the left lateral tongue that appears more secondary to trauma then viral. Lungs: Clear to auscultation without wheezes, crackles or rhonchi CV: Regular rate and rhythm without murmur Abdomen: Soft, nontender, bowel sounds are present, there is no guarding no rebound. Extremities: No clubbing, no cyanosis, no edema. The abrasion on the right curry is slowly resolving, there is no purulence,no drainage, no erythema Skin: Warm and dry no sign of rash Neuro: Patient is alert IV access: Right chest Port-A-Cath Height/Weight/BMI: Height 5 ft 4 in Weight 125 lb 14.143 oz Body Mass Index 21.6 Results - Labs CBC & Chem 7: 11/26/17 03:55 11/26/17 03:55 Labs: Laboratory Tests 11/23/17 11/23/17 11/23/17 13:45 17:47 17:47 Calcium 8.5 Ionized Calcium Bet[place] Phosphorus 2.1 L Magnesium 1.5 L Albumin 11/24/17 11/24/17 11/25/17 04:11 04:11 03:52 Calcium 7.1 L 6.8 L Ionized Calcium [place] Phosphorus 2.4 L 2.0 L Magnesium 2.3 D Albumin 2.2 L 11/25/17 11/25/17 11/25/17 03:52 15:35 17:56 Calcium Ionized Calcium [place] 1.04 L Phosphorus Magnesium 1.8 D 2.5 H D Albumin 11/26/17 03:55 Calcium 7.4 L D Ionized Calcium [place] Phosphorus 2.2 L Magnesium 2.2 Albumin Assessment and Plan Assessment and Plan: Chronic and associated conditions Adenocarcinoma of ascending colon, stage IIIB; neutropenia; on chemotherapy since June, History of C. difficile in 2016 History of low-normal blood pressures (92/62 to 118/78 throughout 2017) MVP with occasional palpitations IBS Acute conditions Febrile neutropenia-resolved, her white blood cell count 7600 today with an absolute granulocyte count of 4900 Recent diarrhea and history of C. difficile, no signs recurrent C. difficile, suspect her diarrhea is related to chemotherapy Generalized weakness exacerbated bilaterally disturbances Hypokalemia Hypomagnesemia Hypophosphatemia Hypocalcemia Mild metabolic acidosis-improved Thrombocytopenia, new improved Worsening anemia-monitor closely Encephalopathy-resolved Mild right leg injury with abrasion and no signs of infection-resolving Plan Overall, the patient is improved. Electrolyte imbalances probably related to profues diarrhea. Blood pressure remains low. Urine output is good. Generalized weakness is a little better. We will continue Imodium after each loose stool to maximum of 8 doses a day. Continue to monitor closely in CCU We'll start bladder training. Consult physical therapy Continue IV fluids to D5NS with 40 meq KCL at 100 cc an hour, we'll need to watch fluid status closely. Her weight has gone up 9 pounds in the last few days , she has no respiratory issues at this time and remains on room air. Will DC IV cefepime, Vanco and metronidazole which were started for febrile neutropenia. Replaced potassium with IV and oral doses, will recheck K+ level in a.m. We'll give 2 g IV calcium Continue to replace phosphorus orally Mg improved after IV boluses yesterday Continue supplement shakes for nutrition, consult dietitian to help her increase her protein intake Ill DC Granix because ANC is greater than 1.5 . - Physician Narrative Narrative: Date: 11/26/17 Time: 1455 Hospital Course Summary Disclaimer: The visit summary below is not to be considered part of the above Progress Note. Hospital Course: 11/23 Admit to CCU. While BP has responded to IVF, she is at high risk for refractory hypotension d/t possible underlying sepsis. Hold atenolol for now. Continue IVF. Antibiotics: Cefepime and Vancomycin. Follow blood cultures and check viral respiratory panel. Monitor tele d/t hypokalemia. Will give KCL IV bolus. Check magnesium level. Diarrhea: check GI panel. Start metronidazole with history of C. difficile. Start Culturelle. Pancytopenia: transfuse if necessary; check iron studies; per Dr. Mota's notes give platelets if they drop to 10 or below. Zofran PRN nausea. Start clear liquid diet and advance as tolerated. With weight loss/poor oral intake, check prealbumin and vitamin B12. Monitor wound to right leg - no clear evidence of active infection. Advanced directives: Jesus (Spouse) is DPOA. She would want all measures taken to prolong her life (intubation, prolonged mechanical ventilation, PEG tube, full code). Family was included on this discussion. Impression Febrile neutropenia Severe sepsis Source of infection is unknown. With recent diarrhea and history of C. difficile there is concern for recurrent C. difficile Generalized weakness Hypokalemia Hypomagnesemia Hypophosphatemia Mild metabolic acidosis Thrombocytopenia, new onset Plan The patient was given cefepime in the emergency room. We'll give vancomycin and Flagyl as well. Check stool for C. difficile Await blood culture results Continue IV fluids, hypotension has resolved with bolus IV fluids Replace potassium IV. Replace magnesium IV. Replace phosphorus orally. Change IV fluids to half-normal saline with one amp of bicarbonate Recheck renal panel, magnesium, CBC tomorrow Discussed with oncologist audit consultant for Dr. Mota and will give Granix 300 subcutaneous once daily starting today. He expects white count should improve by Saturday or Saturday. SCDs for DVT prophylaxis 11/25/17 Plan Overall, the patient is stable. Electrolyte imbalances probably related to profues diarrhea. Blood pressure remains low. Urine output is good. Generalized weakness is a little better. Source of infection is still unknown. Blood cultures negative thus far. Continue to monitor closely in CCU Change IV fluids to D5NS with 40 meq KCL at 100 cc an hour, will have nursing recheck weight Reorder IV cefepime, continue Vanco (Pharmacy adjusting dose), metronidazole for febrile neutropenia. Would not continue levofloxacin secondary to increased risk of C dif Replaced potassium with IV and oral doses, will recheck K+ level Continue to replace phosphorus orally Replace Mg with IV boluses Continue supplement shakes for nutrition, consult dietitian to help her increase her protein intake Continue Granix daily until ANC is greater than 1.5 11/26/17 Overall, the patient is improved. Electrolyte imbalances probably related to profues diarrhea. Blood pressure remains low. Urine output is good. Generalized weakness is a little better. We will continue Imodium after each loose stool to maximum of 8 doses a day. Continue to monitor closely in CCU We'll start bladder training. Consult physical therapy Continue IV fluids to D5NS with 40 meq KCL at 100 cc an hour, we'll need to watch fluid status closely. Her weight has gone up 9 pounds in the last few days , she has no respiratory issues at this time and remains on room air. Will DC IV cefepime, Vanco and metronidazole which were started for febrile neutropenia. Replaced potassium with IV and oral doses, will recheck K+ level in a.m. We'll give 2 g IV calcium Continue to replace phosphorus orally Mg improved after IV boluses yesterday Continue supplement shakes for nutrition, consult dietitian to help her increase her protein intake Ill DC Granix because ANC is greater than 1.5
[2017-11-26] MEDS ORDERED: ESTRADIOL 0.05 MG/24 HR TD SCH (17:00)
[2017-11-26] MEDS: LOPERAMIDE 2 MG CAPSULE PO PRN (22:55)
[2017-11-27] MEDS: LOPERAMIDE 2 MG CAPSULE PO PRN ×2 (08:39→18:35)
[2017-11-27] MEDS: PHOSPHORUS 250 MG TABLET PO SCH ×4 (08:47→20:52)
--- NOTE | 2017-11-27 09:03 | Progress Note ---
- Date 11/27/17 Subjective: The pt was seen by me at 8:45 am in ICU. She reports her diarrhea is much improved- is taking immodium as needed-thinks she may have had 2-3 stools in the last day. Her sore on her tongue has improved. She is trying to eat. Ochoa still in place- clamped for some time during the evening. She was up walking with physical therapy yesterday. She remains afebrile. Denies nausea now- did require zofran last evening. No cough, no SOB, no pedal edema. Her BP is stable- probably on the high side for her, weight is stable -up about 11 lbs from admission. Objective Vital signs: Temperature 98.9 F 11/27/17 04:00 Pulse Rate 71 11/27/17 06:01 Respiratory Rate 19 11/27/17 06:01 Blood Pressure 130/61 11/27/17 06:01 Pulse Oximetry 100 11/27/17 06:01 In general, the patient is alert and oriented 3, cooperative with exam, and in no respiratory distress. HEENT: Head is atraumatic, normocephalic, no conjunctival petechiae, no oral thrush, mucous membranes are dry, left lateral tongue lesion healing Lungs: Clear to auscultation without wheezes, crackles or rhonchi CV: Regular rate and rhythm without murmur Abdomen: Soft, nontender, bowel sounds are present, there is no guarding no rebound. Extremities: No clubbing, no cyanosis, no edema. Small abrasion on RLE resolving Skin: Warm and dry no sign of rash Neuro: Patient is alert IV access:Right chest [id number]- accessed 11/23? ochoa in place Height/Weight/BMI: Height 5 ft 4 in Weight 125 lb 10.616 oz Body Mass Index 21.6 Results - Labs CBC & Chem 7: 11/27/17 04:13 11/27/17 04:13 Labs: Laboratory Tests 11/26/17 11/27/17 11/27/17 03:55 04:13 04:13 Neutrophils # (Manual) 7.4 Potassium 3.2 L 3.2 L Calcium 7.4 L D 8.0 L D Phosphorus 2.2 L 3.3 Magnesium 2.2 1.7 D Albumin 2.0 L Assessment and Plan Assessment and Plan: Chronic and associated conditions Adenocarcinoma of ascending colon, stage IIIB; neutropenia; on chemotherapy since June, History of C. difficile in 2017 History of low-normal blood pressures (92/62 to 118/78 throughout 2017) MVP with occasional palpitations IBS Acute conditions Febrile neutropenia-resolved, her absolute granulocyte count is 7400 Recent diarrhea and history of C. difficile, no signs recurrent C. difficile, suspect her diarrhea is related to chemotherapy-improved with immodium Generalized weakness exacerbated by electrolyte disturbances Hypokalemia Hypomagnesemia Hypophosphatemia-resolved Hypocalcemia Mild metabolic acidosis-improved Thrombocytopenia, new, improving Anemia-monitor closely Encephalopathy-resolved Mild right leg injury with abrasion and no signs of infection-resolving Plan The patient continues to improve. Electrolyte imbalances related to profuse diarrhea. Blood pressure has normalized. Urine output is good. Generalized weakness is a little better. We will continue Imodium after each loose stool to maximum of 8 doses a day. Will transfer out of CCU We'll continue bladder training, hope to JEFFY ochoa later today Continue work with physical therapy Discontinue IV fluids, we'll need to watch fluid status closely. Her BP has normalized, she has no respiratory issues at this time and remains on room air. Replace potassium with oral doses, will recheck K+ level in a.m. We'll give oral calcium, check ionized calcium and Vit D level Continue to replace phosphorus orally Mg oral supplements Continue supplement shakes for nutrition, consult dietitian to help her increase her protein intake . DVT Prophylaxis: SCD's Resuscitation Status: Full Code - Physician Narrative Narrative: Date: 11/27/17 Time: 0858 Hospital Course Summary Disclaimer: The visit summary below is not to be considered part of the above Progress Note. Hospital Course: 11/23 Admit to CCU. While BP has responded to IVF, she is at high risk for refractory hypotension d/t possible underlying sepsis. Hold atenolol for now. Continue IVF. Antibiotics: Cefepime and Vancomycin. Follow blood cultures and check viral respiratory panel. Monitor tele d/t hypokalemia. Will give KCL IV bolus. Check magnesium level. Diarrhea: check GI panel. Start metronidazole with history of C. difficile. Start Culturelle. Pancytopenia: transfuse if necessary; check iron studies; per Dr. Mota's notes give platelets if they drop to 10 or below. Zofran PRN nausea. Start clear liquid diet and advance as tolerated. With weight loss/poor oral intake, check prealbumin and vitamin B12. Monitor wound to right leg - no clear evidence of active infection. Advanced directives: Jesus (Spouse) is DPOA. She would want all measures taken to prolong her life (intubation, prolonged mechanical ventilation, PEG tube, full code). Family was included on this discussion. Impression Febrile neutropenia Severe sepsis Source of infection is unknown. With recent diarrhea and history of C. difficile there is concern for recurrent C. difficile Generalized weakness Hypokalemia Hypomagnesemia Hypophosphatemia Mild metabolic acidosis Thrombocytopenia, new onset Plan The patient was given cefepime in the emergency room. We'll give vancomycin and Flagyl as well. Check stool for C. difficile Await blood culture results Continue IV fluids, hypotension has resolved with bolus IV fluids Replace potassium IV. Replace magnesium IV. Replace phosphorus orally. Change IV fluids to half-normal saline with one amp of bicarbonate Recheck renal panel, magnesium, CBC tomorrow Discussed with oncologist biofuels operations manager for Dr. Mota and will give Granix 300 subcutaneous once daily starting today. He expects white count should improve by Saturday or Saturday. SCDs for DVT prophylaxis 11/25/17 Plan Overall, the patient is stable. Electrolyte imbalances probably related to profues diarrhea. Blood pressure remains low. Urine output is good. Generalized weakness is a little better. Source of infection is still unknown. Blood cultures negative thus far. Continue to monitor closely in CCU Change IV fluids to D5NS with 40 meq KCL at 100 cc an hour, will have nursing recheck weight Reorder IV cefepime, continue Vanco (Pharmacy adjusting dose), metronidazole for febrile neutropenia. Would not continue levofloxacin secondary to increased risk of C dif Replaced potassium with IV and oral doses, will recheck K+ level Continue to replace phosphorus orally Replace Mg with IV boluses Continue supplement shakes for nutrition, consult dietitian to help her increase her protein intake Continue Granix daily until ANC is greater than 1.5 11/26/17 Overall, the patient is improved. Electrolyte imbalances probably related to profuse diarrhea. Blood pressure remains low. Urine output is good. Generalized weakness is a little better. We will continue Imodium after each loose stool to maximum of 8 doses a day. Continue to monitor closely in CCU We'll start bladder training. Consult physical therapy Continue IV fluids to D5NS with 40 meq KCL at 100 cc an hour, we'll need to watch fluid status closely. Her weight has gone up 9 pounds in the last few days , she has no respiratory issues at this time and remains on room air. Will DC IV cefepime, Vanco and metronidazole which were started for febrile neutropenia. Replaced potassium with IV and oral doses, will recheck K+ level in a.m. We'll give 2 g IV calcium Continue to replace phosphorus orally Mg improved after IV boluses yesterday Continue supplement shakes for nutrition, consult dietitian to help her increase her protein intake Ill DC Granix because ANC is greater than 1.5 11/27/17 The patient continues to improve. Electrolyte imbalances related to profuse diarrhea. Blood pressure has normalized. Urine output is good. Generalized weakness is a little better. We will continue Imodium after each loose stool to maximum of 8 doses a day. Will transfer out of CCU We'll continue bladder training, hope to JEFFY ochoa later today Continue work with physical therapy Discontinue IV fluids, we'll need to watch fluid status closely. Her BP has normalized, she has no respiratory issues at this time and remains on room air. Replace potassium with oral doses, will recheck K+ level in a.m. We'll give oral calcium, check ionized calcium and Vit D level Continue to replace phosphorus orally Mg oral supplements Continue supplement shakes for nutrition, consult dietitian to help her increase her protein intake
[2017-11-27] MEDS: D5NS IV SCH (09:09)
[2017-11-27] MEDS: POTASSIUM CHLORIDE IV SCH (09:09)
[2017-11-27] MEDS: LACTOBACILLUS (15B cfu) CAPSULE PO SCH ×3 (10:21→17:55)
[2017-11-27] MEDS: MAGNESIUM OXIDE 400 MG TABLET PO SCH ×2 (10:22→22:02)
[2017-11-27] MEDS: CALCIUM CITRATE 315mg + VIT.D 250units TABLET PO SCH ×2 (10:22→20:51)
[2017-11-27] MEDS: SALINE FLUSH 10ml SYRINGE IVF PRN (22:06)
[2017-11-28] MEDS: LOPERAMIDE 2 MG CAPSULE PO PRN ×2 (01:30→23:18)
[2017-11-28] MEDS: SALINE FLUSH 10ml SYRINGE IVF PRN ×3 (05:07→09:36)
[2017-11-28] MEDS: PHOSPHORUS 250 MG TABLET PO SCH ×4 (08:40→17:12)
[2017-11-28] MEDS: LACTOBACILLUS (15B cfu) CAPSULE PO SCH ×3 (08:50→17:12)
[2017-11-28] MEDS: MAGNESIUM OXIDE 400 MG TABLET PO SCH ×2 (08:51→20:29)
[2017-11-28] MEDS: CALCIUM CITRATE 315mg + VIT.D 250units TABLET PO SCH (08:52)
[2017-11-28] MEDS ORDERED: FUROSEMIDE 20 MG/2 ML INJECTION IVP ONE (09:22)
--- NOTE | 2017-11-28 12:23 | Progress Note ---
- Date 11/28/17 Subjective: Dominga feels better. Her stools have dramatically slowed down. She feels weak in general but denies dizziness. She denies any shortness of breath at rest or on exertion (however appears tachypneic). She denies chest pain. No abdominal pain or nausea. She has a little swelling in her legs. Objective Vital signs: Temperature 98.9 F 11/28/17 07:25 Pulse Rate 76 11/28/17 07:25 Respiratory Rate 16 11/28/17 07:25 Blood Pressure 101/60 11/28/17 07:25 Pulse Oximetry 96 11/28/17 07:25 Height/Weight/BMI: Height 1.63 m Weight 62.8 kg Body Mass Index 21.6 - Constitutional Present: no acute distress, well nourished, well developed - Routine HEENT Exam Head: Present: normocephalic Eye: Present: PERRL. Absent: conjunctival icterus, scleral injection ENT: Present: mucous membranes moist, oropharynx clear - Routine Respiratory Exam Present: CTA bilaterally Comments: slightly tachypneic - Routine Cardiovascular Exam Present: RRR, S1, S2 - Routine Abdominal Exam Present: soft, normoactive bowel sounds, non distended, non tender - Routine Extremities Exam Present: edema (1+ to BLE; both arms are swollen in dependent areas) - Routine Musculoskeletal Exam Musculoskeletal: Present: moving extremities well - Routine Skin Exam Present: intact, dry, warm - Routine Neurological Exam Present: alert, oriented X3, normal speech - Routine Psychiatric Exam Present: normal affect, normal thought process, cooperative Results - Labs CBC & Chem 7: 11/28/17 05:06 11/28/17 05:06 Assessment and Plan Assessment and Plan: Acute conditions Febrile neutropenia-resolved Recent diarrhea and history of C. difficile, no signs recurrent C. difficile, suspect her diarrhea is related to chemotherapy-improved with immodium Generalized weakness exacerbated by electrolyte disturbances Hypokalemia-resolved Hypomagnesemia-resolved Hypophosphatemia-resolved Hypocalcemia Mild metabolic acidosis-improved Thrombocytopenia, new, improving Anemia-monitor closely Encephalopathy-resolved Mild right leg injury with abrasion and no signs of infection-resolving Chronic and associated conditions Adenocarcinoma of ascending colon, stage IIIB; neutropenia; on chemotherapy since June, History of C. difficile in 2017 History of low-normal blood pressures (92/62 to 118/78 throughout 2017) MVP with occasional palpitations IBS Plan Ongoing improvement in electrolytes and blood pressure. Na 147, K 3.8, Phos 4.4 , Ca 8.2. Her stools are slowing with immodium use. KDur, Kphos doses reduced. Continue MagOx and Calcium. Fluid positive with 11 kg weight gain. Give Lasix 20 mg IV x1 though she may need additional diuresis (had a low-normal BP reading prior to ordering diuretic precluding higher diuretic dose). Monitor electrolytes with Lasix use. JEFFY Ochoa. Anemia is stable and thrombocytopenia improving. Discussed with Dr. Pham. DVT Prophylaxis: SCD's Resuscitation Status: Full Code - Physician Narrative Narrative: Date: 11/28/17 Time: 1217 I have independently evaluated and examined this patient. I reviewed the chart, the patient's history, and the ELECTRICAL ENGINEER MEP/PA's documented findings as above. We discussed and formulated the assessment and plan as above with additions as below. Discussed patient's chemotherapy plans with Dr. Mota"s office. The patient is scheduled to see him on December 12 and they will reassess at that point. The patient is being considered for IRU. Dr. Mota's office asked to be notified when the patient is discharged from IRU. Hospital Course Summary Disclaimer: The visit summary below is not to be considered part of the above Progress Note. Hospital Course: 11/23 Admit to CCU. While BP has responded to IVF, she is at high risk for refractory hypotension d/t possible underlying sepsis. Hold atenolol for now. Continue IVF. Antibiotics: Cefepime and Vancomycin. Follow blood cultures and check viral respiratory panel. Monitor tele d/t hypokalemia. Will give KCL IV bolus. Check magnesium level. Diarrhea: check GI panel. Start metronidazole with history of C. difficile. Start Culturelle. Pancytopenia: transfuse if necessary; check iron studies; per Dr. Mota's notes give platelets if they drop to 10 or below. Zofran PRN nausea. Start clear liquid diet and advance as tolerated. With weight loss/poor oral intake, check prealbumin and vitamin B12. Monitor wound to right leg - no clear evidence of active infection. Advanced directives: Jesus (Spouse) is DPOA. She would want all measures taken to prolong her life (intubation, prolonged mechanical ventilation, PEG tube, full code). Family was included on this discussion. Impression Febrile neutropenia Severe sepsis Source of infection is unknown. With recent diarrhea and history of C. difficile there is concern for recurrent C. difficile Generalized weakness Hypokalemia Hypomagnesemia Hypophosphatemia Mild metabolic acidosis Thrombocytopenia, new onset Plan The patient was given cefepime in the emergency room. We'll give vancomycin and Flagyl as well. Check stool for C. difficile Await blood culture results Continue IV fluids, hypotension has resolved with bolus IV fluids Replace potassium IV. Replace magnesium IV. Replace phosphorus orally. Change IV fluids to half-normal saline with one amp of bicarbonate Recheck renal panel, magnesium, CBC tomorrow Discussed with oncologist personal development coach for Dr. Mota and will give Granix 300 subcutaneous once daily starting today. He expects white count should improve by Saturday or Saturday. SCDs for DVT prophylaxis 11/25/17 Plan Overall, the patient is stable. Electrolyte imbalances probably related to profues diarrhea. Blood pressure remains low. Urine output is good. Generalized weakness is a little better. Source of infection is still unknown. Blood cultures negative thus far. Continue to monitor closely in CCU Change IV fluids to D5NS with 40 meq KCL at 100 cc an hour, will have nursing recheck weight Reorder IV cefepime, continue Vanco (Pharmacy adjusting dose), metronidazole for febrile neutropenia. Would not continue levofloxacin secondary to increased risk of C dif Replaced potassium with IV and oral doses, will recheck K+ level Continue to replace phosphorus orally Replace Mg with IV boluses Continue supplement shakes for nutrition, consult dietitian to help her increase her protein intake Continue Granix daily until ANC is greater than 1.5 11/26/17 Overall, the patient is improved. Electrolyte imbalances probably related to profuse diarrhea. Blood pressure remains low. Urine output is good. Generalized weakness is a little better. We will continue Imodium after each loose stool to maximum of 8 doses a day. Continue to monitor closely in CCU We'll start bladder training. Consult physical therapy Continue IV fluids to D5NS with 40 meq KCL at 100 cc an hour, we'll need to watch fluid status closely. Her weight has gone up 9 pounds in the last few days , she has no respiratory issues at this time and remains on room air. Will DC IV cefepime, Vanco and metronidazole which were started for febrile neutropenia. Replaced potassium with IV and oral doses, will recheck K+ level in a.m. We'll give 2 g IV calcium Continue to replace phosphorus orally Mg improved after IV boluses yesterday Continue supplement shakes for nutrition, consult dietitian to help her increase her protein intake Ill DC Granix because ANC is greater than 1.5 11/27/17 The patient continues to improve. Electrolyte imbalances related to profuse diarrhea. Blood pressure has normalized. Urine output is good. Generalized weakness is a little better. We will continue Imodium after each loose stool to maximum of 8 doses a day. Will transfer out of CCU We'll continue bladder training, hope to JEFFY ochoa later today Continue work with physical therapy Discontinue IV fluids, we'll need to watch fluid status closely. Her BP has normalized, she has no respiratory issues at this time and remains on room air. Replace potassium with oral doses, will recheck K+ level in a.m. We'll give oral calcium, check ionized calcium and Vit D level Continue to replace phosphorus orally Mg oral supplements Continue supplement shakes for nutrition, consult dietitian to help her increase her protein intake 11/28/17 Ongoing improvement in electrolytes and blood pressure. Na 147, K 3.8, Phos 4.4 , Ca 8.2. Her stools are slowing with immodium use. KDur, Kphos doses reduced. Continue MagOx and Calcium. Fluid positive with 11 kg weight gain. Give Lasix 20 mg IV x1 though she may need additional diuresis (had a low-normal BP reading prior to ordering diuretic precluding higher diuretic dose). Monitor electrolytes with Lasix use. JEFFY Ochoa. Anemia is stable and thrombocytopenia improving.
[2017-11-28] MEDS: ONDANSETRON 4 MG/2 ML INJECTION IVP PRN (17:14)
[2017-11-28 23:21] VITALS: O2SAT 99
[2017-11-29 07:27] VITALS: BP 97/57; PULSE 70; RESP 18; TEMP 97.9
[2017-11-29] MEDS: LACTOBACILLUS (15B cfu) CAPSULE PO SCH ×2 (08:35→12:26)
[2017-11-29] MEDS: CALCIUM CITRATE 315mg + VIT.D 250units TABLET PO SCH (08:36)
[2017-11-29] MEDS: PHOSPHORUS 250 MG TABLET PO SCH ×2 (08:36→12:26)
[2017-11-29] MEDS: MAGNESIUM OXIDE 400 MG TABLET PO SCH (08:36)
--- NOTE | 2017-11-29 13:01 | Progress Note ---
- Date 11/29/17 Subjective: Dominga is seen today in follow up. She is up in the chair and reports overall she is feeling better. She continues to have urinary retention since ochoa cath was removed last night. This morning BladderScan revealed 900 ML's, she was straight cathed. Unfortunately she has voided since that time. BladderScan 2 hours ago at 11 a.m. revealed 200 ML. She denies having any abdominal pain. No shortness of breath or chest pain. Appetite is fair. She has been taking ensure. Overall, she feels slightly weak and recognizes that she cannot be discharged home. Objective Vital signs: Temperature 97.9 F 11/29/17 07:26 Pulse Rate 70 11/29/17 07:26 Respiratory Rate 18 11/29/17 07:26 Blood Pressure 97/57 11/29/17 07:26 Pulse Oximetry 99 11/29/17 07:26 Height/Weight/BMI: Height 1.63 m Weight 61.7 kg Body Mass Index 21.6 - Constitutional Present: no acute distress, well nourished, well developed - Routine HEENT Exam Eye: Present: EOMI ENT: Present: mucous membranes moist, dentition normal - Routine Respiratory Exam Present: CTA bilaterally. Absent: wheezes - Routine Cardiovascular Exam Present: RRR, S1, S2. Absent: murmur - Routine Abdominal Exam Present: soft, normoactive bowel sounds, non distended. Absent: tenderness - Routine Extremities Exam Present: full ROM, pulses intact - Routine Skin Exam Present: intact, dry, warm - Routine Neurological Exam Present: alert, oriented X3, CN II-XII intact, moving all extremities - Routine Lymphatic Exam Lymphatic: Absent: adenopathy - Routine Psychiatric Exam Present: normal affect, cooperative Results - Labs CBC & Chem 7: 11/29/17 04:33 11/29/17 04:33 Assessment and Plan Assessment and Plan: Acute conditions Febrile neutropenia-resolved Recent diarrhea and history of C. difficile, no signs recurrent C. difficile, suspect her diarrhea is related to chemotherapy-improved with immodium Generalized weakness exacerbated by electrolyte disturbances Urinary retention Hypokalemia-resolved Hypomagnesemia-resolved Hypophosphatemia-resolved Hypocalcemia Mild metabolic acidosis-improved Thrombocytopenia, new, improving Anemia Encephalopathy-resolved Mild right leg injury with abrasion and no signs of infection-resolving Chronic and associated conditions Adenocarcinoma of ascending colon, stage IIIB; neutropenia; on chemotherapy since June, History of C. difficile in 2017 History of low-normal blood pressures (92/62 to 118/78 throughout 2017) MVP with occasional palpitations IBS Plan Spoke with nursing staff regarding urinary retention. Patient is unable to void and has greater than 300 ML on bladder scan. Will replace Ochoa catheter. Did discuss with patient regarding she may need to fully catheter for a longer timeframe. Labs remain stable. Loose stools have resolved. She feels that she is getting a little stronger each day. However, feels like she needs ongoing therapy. She does request [facility] and is in agreement to SNU- discussed with CM Case discussed with attending, Dr Lavon Doll Arrangements made for skilled care at . Patient medically stable, will discharge. Ochoa with bladder retraining secondary to urinary reteintion. DVT Prophylaxis: SCD's Resuscitation Status: Full Code - Physician Narrative Physician: Ajay Doll MD Narrative: Date: 11/29/17 Time: 1600 Have independently interviewed and examined pt. Chart reviewed. Case discussed with CM and my PARER. Care plan developed with my supervision; agree with above. Doing well other than difficulty empting bladder. Appetite stable. No nausea or ab pain. Bowels stable. Breathing well. No f/c. Lungs: clear bilaterally CV: regular AB: soft nt/nd MSE: awake alert appropriate Plan: Arrangements made for stay of skilled care at . Will discharge as medically stable. See orders for details. Hospital Course Summary Disclaimer: The visit summary below is not to be considered part of the above Progress Note. Hospital Course: 11/23 Admit to CCU. While BP has responded to IVF, she is at high risk for refractory hypotension d/t possible underlying sepsis. Hold atenolol for now. Continue IVF. Antibiotics: Cefepime and Vancomycin. Follow blood cultures and check viral respiratory panel. Monitor tele d/t hypokalemia. Will give KCL IV bolus. Check magnesium level. Diarrhea: check GI panel. Start metronidazole with history of C. difficile. Start Culturelle. Pancytopenia: transfuse if necessary; check iron studies; per Dr. Mota's notes give platelets if they drop to 10 or below. Zofran PRN nausea. Start clear liquid diet and advance as tolerated. With weight loss/poor oral intake, check prealbumin and vitamin B12. Monitor wound to right leg - no clear evidence of active infection. Advanced directives: Jesus (Spouse) is DPOA. She would want all measures taken to prolong her life (intubation, prolonged mechanical ventilation, PEG tube, full code). Family was included on this discussion. Impression Febrile neutropenia Severe sepsis Source of infection is unknown. With recent diarrhea and history of C. difficile there is concern for recurrent C. difficile Generalized weakness Hypokalemia Hypomagnesemia Hypophosphatemia Mild metabolic acidosis Thrombocytopenia, new onset Plan The patient was given cefepime in the emergency room. We'll give vancomycin and Flagyl as well. Check stool for C. difficile Await blood culture results Continue IV fluids, hypotension has resolved with bolus IV fluids Replace potassium IV. Replace magnesium IV. Replace phosphorus orally. Change IV fluids to half-normal saline with one amp of bicarbonate Recheck renal panel, magnesium, CBC tomorrow Discussed with oncologist transplant surgeon for Dr. Mota and will give Granix 300 subcutaneous once daily starting today. He expects white count should improve by Saturday or Saturday. SCDs for DVT prophylaxis 11/25/17 Plan Overall, the patient is stable. Electrolyte imbalances probably related to profues diarrhea. Blood pressure remains low. Urine output is good. Generalized weakness is a little better. Source of infection is still unknown. Blood cultures negative thus far. Continue to monitor closely in CCU Change IV fluids to D5NS with 40 meq KCL at 100 cc an hour, will have nursing recheck weight Reorder IV cefepime, continue Vanco (Pharmacy adjusting dose), metronidazole for febrile neutropenia. Would not continue levofloxacin secondary to increased risk of C dif Replaced potassium with IV and oral doses, will recheck K+ level Continue to replace phosphorus orally Replace Mg with IV boluses Continue supplement shakes for nutrition, consult dietitian to help her increase her protein intake Continue Granix daily until ANC is greater than 1.5 11/26/17 Overall, the patient is improved. Electrolyte imbalances probably related to profuse diarrhea. Blood pressure remains low. Urine output is good. Generalized weakness is a little better. We will continue Imodium after each loose stool to maximum of 8 doses a day. Continue to monitor closely in CCU We'll start bladder training. Consult physical therapy Continue IV fluids to D5NS with 40 meq KCL at 100 cc an hour, we'll need to watch fluid status closely. Her weight has gone up 9 pounds in the last few days , she has no respiratory issues at this time and remains on room air. Will DC IV cefepime, Vanco and metronidazole which were started for febrile neutropenia. Replaced potassium with IV and oral doses, will recheck K+ level in a.m. We'll give 2 g IV calcium Continue to replace phosphorus orally Mg improved after IV boluses yesterday Continue supplement shakes for nutrition, consult dietitian to help her increase her protein intake Ill DC Granix because ANC is greater than 1.5 11/27/17 The patient continues to improve. Electrolyte imbalances related to profuse diarrhea. Blood pressure has normalized. Urine output is good. Generalized weakness is a little better. We will continue Imodium after each loose stool to maximum of 8 doses a day. Will transfer out of CCU We'll continue bladder training, hope to DC ochoa later today Continue work with physical therapy Discontinue IV fluids, we'll need to watch fluid status closely. Her BP has normalized, she has no respiratory issues at this time and remains on room air. Replace potassium with oral doses, will recheck K+ level in a.m. We'll give oral calcium, check ionized calcium and Vit D level Continue to replace phosphorus orally Mg oral supplements Continue supplement shakes for nutrition, consult dietitian to help her increase her protein intake 11/28/17 Ongoing improvement in electrolytes and blood pressure. Na 147, K 3.8, Phos 4.4 , Ca 8.2. Her stools are slowing with immodium use. KDur, Kphos doses reduced. Continue MagOx and Calcium. Fluid positive with 11 kg weight gain. Give Lasix 20 mg IV x1 though she may need additional diuresis (had a low-normal BP reading prior to ordering diuretic precluding higher diuretic dose). Monitor electrolytes with Lasix use. DC Ochoa. Anemia is stable and thrombocytopenia improving. 11/29/17 Spoke with nursing staff regarding urinary retention. Patient is unable to void and has greater than 300 ML on bladder scan. Will replace Ochoa catheter. Did discuss with patient regarding she may need to fully catheter for a longer timeframe. Labs remain stable. Loose stools have resolved. She feels that she is getting a little stronger each day. However, feels like she needs ongoing therapy. She does request [facility] and is in agreement to SNU- discussed with CM Case discussed with attending, Dr Doll
--- NOTE | 2017-11-29 15:12 | Extended Care Facility Orders ---
Admission Orders Admit to:: [facility] Allergies/Adverse Reactions: Allergies bismuth subgallate Allergy (Intermediate, Verified 11/23/17 13:59) Hives hydrocortisone Allergy (Intermediate, Verified 11/23/17 13:59) HIVES resorcinol Allergy (Intermediate, Verified 11/23/17 13:59) HIVES telithromycin Allergy (Intermediate, Verified 11/23/17 13:59) NAUSEA zinc oxide Allergy (Intermediate, Verified 11/23/17 13:59) HIVES Sulfa (Sulfonamide Antibiotics) Allergy (Unknown, Verified 11/23/17 13:59) Reaction was from several years ago when pt was a child. Pt unsure of what actual reaction was. Just always told she was allergic to Sulfa. Admitting Diagnosis: neutropenic fever Admitting Physician: Ajay Doll MD Attending Physician: Ajay Doll MD Code Status: Full Code Anticiapted Length of Stay: 30 days or less Rehab Potential: fair Rehab Prognosis: fair Diet: 11/24/17 Breakfast Regular Diet [DIET] Diet Modifications: Other Diet Modifiers: NEUTRO 11/27/17 Lunch Regular Diet [DIET] Diet Modifications: May use Facility Protocol or Standing Orders: Yes May have flu vaccine: Yes Evaluations/Treatment: PT, OT, as needed Fdc Certification: I certify that SNF services are required to be given on an Inpatient basis because of the patients need for snf care on a continuing basis for the condition(s) for which he/she received inpatient hospital services prior to his/her transfer to the SNF. SNF inpatient care is necessary for the following reasons Indication for Fdc: Other (PT,OT) - Additional Information Referrals: Adele Voss MD [Family Provider] - (Please follow-up in one week)
--- NOTE | 2017-11-29 15:17 | Discharge Summary ---
Discharge Information Date of admission: 11/23/17 15:51 Anticipated date of discharge: 11/29/17 Attending Physician: Ajay Doll MD Primary care physician: Adele Voss MD Consults: None - Discharge Diagnosis (1) Neutropenic fever Status: Acute Discharge diagnosis Febrile neutropenia - resolved Associated conditions and complications Recent diarrhea and history of C. difficile, no signs recurrent C. difficile, suspect her diarrhea is related to chemotherapy-improved with Imodium Generalized weakness exacerbated by electrolyte disturbances Urinary retention Hypokalemia (POA) - resolved Hypomagnesemia (POA) - resolved Hypophosphatemia (POA) - resolved Hypocalcemia Mild metabolic acidosis - improved Thrombocytopenia (POA) - new, improving Anemia Encephalopathy - resolved Mild right leg injury with abrasion and no signs of infection - resolving Adenocarcinoma of ascending colon, stage IIIB; neutropenia; on chemotherapy since June, History of C. difficile in 2016 History of low-normal blood pressures (92/62 to 118/78 throughout 2016) MVP with occasional palpitations IBS - Procedures Procedures: None - Laboratory Labs: 11/29/17 04:33 11/29/17 04:33 - Microbiology Microbiology 11/23/17 13:35 Port/Picc Blood Culture - Final No Growth After 5 Days 11/23/17 13:40 Peripheral/Iv Start Blood Culture - Final No Growth After 5 Days - Radiology Radiology: 11/23/17-chest x-ray-no acute cardiopulmonary abnormalities 11/24/17-chest [id number] appearance without acute cardiopulmonary disease - Pathology None History of Present Illness HPI: Dominga Otero is a 72 y/o woman with a history of colon cancer managed by Dr. Miguel Ángel Mota. Cancer was diagnosed in April 2017 and she underwent hemicolectomy and started chemotherapy in June,. She gets chemo every other Saturday, and is due for her next session on 11/27/17 (she cannot recall the name of her chemo). She has had problems with low WBC and has been receiving G-CSF routinely but has not required blood transfusions. She had G-CSF on 11/20, 11/21, and 11/22. She typically gets very tired and fatigued with G-CSF, but tries to stay as active as possible when able. For example, about a week ago she was trying to redecorate her kitchen, and as she tried to step up on a chair, the chair slid out and she abraded her right curry. She saw her PCP and it did not look infected. She was Rx mupirocin ointment on 11/18/17 and she also had leftover Amoxicillin which she took for about 2 days. However, she developed new symptoms of profuse diarrhea on 11/20 and 11/21. She went frequently but doesn 't think it exceeded 10 epsidoes of diarrhea. She denies seeing any blood in her stool. She has also had some nausea and abdominal cramping along with the diarrhea. She hasn't been eating well, but thought she was keeping up with fluids until 11/22, when she felt too awful to push fluids. She knows she's lost weight overall since being diagnosed with cancer, and [facility] records show that in December of 2016 she weighed 136 lbs and at her last visit she was 120 lbs. Besides the GI illness and leg injury, she denies fever or chills, cough/ congestion/sinus drainage, sore throat, or dysuria. She denies SOA or chest pain or palpitations. She denies headaches, visual changes, unilateral weakness or dysphagia. She has chronic paresthesias to both feet which she attributes to chemotherapy. She tends to bruise easily and can't quite explain the many purpuric lesions to her hands/forearms. She denies dizziness, just extreme fatigue. On 11/23/17, she spilled water on herself and tried to get up to clean up. However, she ended up falling and was too weak to right herself. Her daughter (Beatris) and (Jesus) had to help her to her feet. Beatris noticed confusion at that time as well. They called 911 and she was transported to the ED. On arrival, her BP was initially stable at 115/61, but then trended down to 86/52. In all, she received 2L of NS, and her BP improved. She does have a history of low-normal BP, and per [facility] records her BP ranged from 92/62 to 118 /78 throughout 2016. She states that the last time she checked it the systolic number was 105. She was febrile at 103.1, tachycardic at 109, and tachypneic at 25. She was maintaining saturations on room air. Labs showed a low WBC of 1.3 with 14% bands; low hgb was 10.3 and platelets were low at 77. On chemistries, her K was only 2.7 and she was given oral KDur 40 mEq. UA was negative for UTI and CXR did not show pneumonia. She was given cefepime in the ED and she also received Tylenol for her fever. Dr. Coats was notified, and the patient was admitted to inpatient status for fever of unknown origin, hypotension, r/o severe sepsis, pancytopenia, and hypokalemia. LOS is expected to exceed 2 overnights. For complete details of the H&P refer to that document. Objective Vital signs: Temperature 97.9 F 11/29/17 07:26 Pulse Rate 70 11/29/17 07:26 Respiratory Rate 18 11/29/17 07:26 Blood Pressure 97/57 11/29/17 07:26 Pulse Oximetry 99 11/29/17 07:26 Height/Weight/BMI: Height 1.63 m Weight 61.7 kg Body Mass Index 21.6 - Constitutional Present: no acute distress, well nourished, well developed - Routine HEENT Exam Eye: Present: EOMI ENT: Present: mucous membranes moist, dentition normal - Routine Respiratory Exam Present: CTA bilaterally. Absent: wheezes - Routine Cardiovascular Exam Present: RRR, S1, S2. Absent: murmur - Routine Abdominal Exam Present: soft, normoactive bowel sounds, non distended. Absent: tenderness - Routine Extremities Exam Present: normal capillary refill - Routine Back/Spine/Pelvis Exam Back/Spine: Present: full ROM - Routine Skin Exam Present: intact, dry, warm - Routine Neurological Exam Present: alert, oriented X3, CN II-XII intact - Routine Lymphatic Exam Lymphatic: Absent: adenopathy - Routine Psychiatric Exam Present: normal affect, cooperative Hospital Course This is a general summary of the patient's hospital course. For more details refer to the complete medical record. Hospital course: 11/23 Admit to CCU. While BP has responded to IVF, she is at high risk for refractory hypotension d/t possible underlying sepsis. Hold atenolol for now. Continue IVF. Antibiotics: Cefepime and Vancomycin. Follow blood cultures and check viral respiratory panel. Monitor tele d/t hypokalemia. Will give KCL IV bolus. Check magnesium level. Diarrhea: check GI panel. Start metronidazole with history of C. difficile. Start Culturelle. Pancytopenia: transfuse if necessary; check iron studies; per Dr. Mota's notes give platelets if they drop to 10 or below. Zofran PRN nausea. Start clear liquid diet and advance as tolerated. With weight loss/poor oral intake, check prealbumin and vitamin B12. Monitor wound to right leg - no clear evidence of active infection. Advanced directives: Jesus (Spouse) is DPOA. She would want all measures taken to prolong her life (intubation, prolonged mechanical ventilation, PEG tube, full code). Family was included on this discussion. Impression Febrile neutropenia Severe sepsis Source of infection is unknown. With recent diarrhea and history of C. difficile there is concern for recurrent C. difficile Generalized weakness Hypokalemia Hypomagnesemia Hypophosphatemia Mild metabolic acidosis Thrombocytopenia, new onset Plan The patient was given cefepime in the emergency room. We'll give vancomycin and Flagyl as well. Check stool for C. difficile Await blood culture results Continue IV fluids, hypotension has resolved with bolus IV fluids Replace potassium IV. Replace magnesium IV. Replace phosphorus orally. Change IV fluids to half-normal saline with one amp of bicarbonate Recheck renal panel, magnesium, CBC tomorrow Discussed with oncologist regional engineer for Dr. Moat and will give Granix 300 subcutaneous once daily starting today. He expects white count should improve by Saturday or Saturday. SCDs for DVT prophylaxis 11/24/17 Overall, the patient is doing better today. Blood pressure has improved. Urine output is good. Generalized weakness is a little better. Source of infection is still unknown. Cultures are pending. Continue to monitor closely in CCU today. Change IV fluids to D5W with 3 A of bicarbonate to run at 75 an hour Continue IV cefepime, Vanco, metronidazole for febrile neutropenia with history of C. difficile. Await GI panel. Replace potassium orally. Continue to replace phosphorus orally. Continue supplement shakes for nutrition. Continue Granix daily until ANC is greater than 1.5. 11/25/17 Overall, the patient is stable. Electrolyte imbalances probably related to profuse diarrhea. Blood pressure remains low. Urine output is good. Generalized weakness is a little better. Source of infection is still unknown. Blood cultures negative thus far. Continue to monitor closely in CCU. Change IV fluids to D5NS with 40 meq KCL at 100 cc an hour, will have nursing recheck weight Reorder IV cefepime, continue Vanco (Pharmacy adjusting dose), metronidazole for febrile neutropenia. Would not continue levofloxacin secondary to increased risk of C dif. Replaced potassium with IV and oral doses, will recheck K+ level. Continue to replace phosphorus orally. Replace Mg with IV boluses. Continue supplement shakes for nutrition, consult dietitian to help her increase her protein intake. Continue Granix daily until ANC is greater than 1.5. 11/26/17 Overall, the patient is improved. Electrolyte imbalances probably related to profuse diarrhea. Blood pressure remains low. Urine output is good. Generalized weakness is a little better. We will continue Imodium after each loose stool to maximum of 8 doses a day. Continue to monitor closely in CCU. We'll start bladder training. Consult physical therapy. Continue IV fluids to D5NS with 40 meq KCL at 100 cc an hour, we'll need to watch fluid status closely. Her weight has gone up 9 pounds in the last few days , she has no respiratory issues at this time and remains on room air. Will DC IV cefepime, Vanco and metronidazole which were started for febrile neutropenia. Replaced potassium with IV and oral doses, will recheck K+ level in a.m. We'll give 2 g IV calcium. Continue to replace phosphorus orally. Mg improved after IV boluses yesterday. Continue supplement shakes for nutrition, consult dietitian to help her increase her protein intake. DC Granix because ANC is greater than 1.5. 11/27/17 The patient continues to improve. Electrolyte imbalances related to profuse diarrhea. Blood pressure has normalized. Urine output is good. Generalized weakness is a little better. We will continue Imodium after each loose stool to maximum of 8 doses a day. Will transfer out of CCU. We'll continue bladder training, hope to JEFFY Monroe later today. Continue work with physical therapy. Discontinue IV fluids, we'll need to watch fluid status closely. Her BP has normalized, she has no respiratory issues at this time and remains on room air. Replace potassium with oral doses, will recheck K+ level in a.m. We'll give oral calcium, check ionized calcium and Vit D level. Continue to replace phosphorus orally. Mg oral supplements. Continue supplement shakes for nutrition, consult dietitian to help her increase her protein intake. 11/28/17 Ongoing improvement in electrolytes and blood pressure. Na 147, K 3.8, Phos 4.4 , Ca 8.2. Her stools are slowing with Imodium use. KDur, Kphos doses reduced. Continue MagOx and Calcium. Fluid positive with 11 kg weight gain. Give Lasix 20 mg IV x1 though she may need additional diuresis (had a low-normal BP reading prior to ordering diuretic precluding higher diuretic dose). Monitor electrolytes with Lasix use. DC Monroe. Anemia is stable and thrombocytopenia improving. 11/29/17- Discharge She was seen and examined multiple times on day of discharge. Overall, she is feeling better. She feels that she is progressively getting more stronger. However, feels she would benefit from ongoing therapy. Unfortunately, she does continue to have urinary retention since removal of Monroe catheter last evening. BladderScan done at 5 a.m. this morning did reveal 900 ML's of urine present and straight catheter was performed. Patient is not able and able to void today. Will replace Monroe catheter prior to discharge. Will need to follow-up with primary care or urologist regarding retention. Otherwise loose stools have resolved. Labs and electrolytes remain stable. Plan is to go to [facility] for skilled rehabilitation with the hopes to return home independently. She is encouraged to follow-up with primary care provider, Adele Voss in one week. At this point she is stable for discharge; see orders for detail. Time spent with patient: greater than 35 minutes Resuscitation Status: Full Code Discharge Plan - Discharge Disposition Discharge Date: 11/29/17 Disposition: 03 To [place] [facility] [place] *Condition: Improved Reason For Visit (Visit label in EMR): neutropenic fever - Discharge Medications *Discharge Medications: New Potassium Chloride [K-DUR 20 mEq Tablet] 20 meq PO WB tab Loperamide [Imodium] 2 mg PO AD PRN cap PRN Reason: AFTER EACH LOOSE STOOL Continue Estradiol Patch [Climara Patch] 1 patch TOP Q7D Ondansetron HCl 8 mg PO TID PRN PRN Reason: Nausea &/Or Vomiting Cholecalciferol (Vitamin D3) [Vitamin D3] 5,000 unit PO DAILY Mupirocin Ointment [Bactroban Ointmment] 1 applicatio TOP PRN PRN PRN Reason: Prn Orders LORazepam [Lorazepam] 1 mg PO TID PRN #20 tab PRN Reason: Prn Orders Discontinued Atenolol [Tenormin] 25 mg PO DAILY PRN PRN Reason: Prn Orders - Discharge Packet/Instructions *Diet: Regular diet *Activity: Activity as tolerated *Pain Management/Treatment: Tylenol as needed *Wound Care: N/A *Expected Signs/Symptoms: Continued improvement if strength *Notify Physician if: Fever, Chills, shortness of breath, chest pain or abdominal pain. *During Business Hours Contact: Contact PCP, Dr. Voss *After Business Hours Contact: Page regional engineer physician or present to the emergency room *Pending Lab/Results: No Pending Lab - Referrals/Follow Up *Referrals/Follow Up: Adele Voss MD [Family Provider] - (Please follow-up in one week) - Patient Handouts Patient Handouts: Neutropenia (GEN) - Dismissal Complete Discharge Instructions are:: Complete Physician Narrative - Narrative Physician: Ajay Doll MD Attestation Narrative: Date: 11/29/17 Time: 1610 I have independently interviewed and examined patient prior to discharge. See my progress note from today for details. Medically stable for discharge to skilled care.
[2017-11-29] MEDS: SALINE FLUSH 10ml SYRINGE IVF PRN (15:35)
[2017-12-03] MEDS ORDERED: [UNRECOGNIZED DRUG - OTHER] TD SCH (17:00)
== END 2017-11-29 16:43 | DRG 808 ==
LOC: ED 13:07 → CCU 15:51 → SUATTDRO 15:51 → CCU 16:20 → MED 11-27 13:30
PROVIDERS: ADMIT Internal Medicine; ATTEND Hospitalist